=== PATIENT | male | born 1940 | race Caucasian/White ===

== ENCOUNTER 2016-12-17 12:40 | Inpatient (IN) ==
--- NOTE | 2016-12-17 13:20 | Emergency Department Note ---
Disposition Clinical Impression: Weakness, Fall Disposition: Admitted As Inpatient Condition: Fair General Adult HPI - General Chief complaint: ED Extremity Problem,Nontraumatic Stated complaint: N/T BLE Time Seen by Provider: 12/17/16 12:44 Source: patient Limitations: no limitations Nursing Notes Reviewed: Yes Vital Signs Reviewed: Yes - History of Present Illness Pain Scale: 0 - Related Data Home Medications Medication Instructions Recorded Confirmed ALPRAZolam [Xanax 0.5 MG Tablet] 0.5 mg PO QID 05/25/15 05/25/15 Acetaminophen [Tylenol] 325 mg PO Q6HR PRN 05/25/15 05/25/15 Aspirin [Adult Low Dose Aspirin EC] 81 mg PO DAILY 05/25/15 05/25/15 Benzonatate [Tessalon] 100 mg PO TID PRN 05/25/15 05/25/15 Bethanechol [Urecholine] 25 mg PO QID 05/25/15 05/25/15 BuPROPion XL (24 HR) [Wellbutrin 300 mg PO DAILY 05/25/15 05/25/15 Xl] Budesonide/Formoterol 160/4.5 2 puff IH BIDR 05/25/15 05/25/15 [Symbicort 160/4.5] Ciprofloxacin HCl [Ciloxan] 5 ml OP QID 05/25/15 05/25/15 Digoxin [Lanoxin] 0.125 mg PO DAILY 05/25/15 05/25/15 Diltiazem HCl [Diltiazem 24Hr Cd] 120 mg PO DAILY 05/25/15 05/25/15 Diltiazem HCl [Diltiazem 24Hr Cd] 180 mg PO DAILY 05/25/15 05/25/15 DiphenhydraMINE [Benadryl] 25 mg PO Q4HR PRN 05/25/15 05/25/15 Docusate [Colace] 100 mg PO HS 05/25/15 05/25/15 Dorzolamide [Trusopt] 1 drop LEFT EYE TID 05/25/15 05/25/15 Finasteride [Proscar] 5 mg PO DAILY 05/25/15 05/25/15 Fluticasone Propionate Nasal 1 spr NS DAILY 05/25/15 05/25/15 [Flonase] Furosemide [Lasix] 20 mg PO BID 05/25/15 05/25/15 Hydrocortisone [Proctozone-Hc] 1 appl TP AD PRN 05/25/15 05/25/15 Ipratropium/Albuterol Sulfate 2 puff IH Q4H PRN 05/25/15 05/25/15 [Combivent Respimat Inhal [place]] Ketorolac OPTH Soln [Acular] 1 drop LEFT EYE QID 05/25/15 05/25/15 Levothyroxine [Synthroid] 75 mcg PO DAILY 05/25/15 05/25/15 Loratadine [Claritin] 10 mg PO HS 05/25/15 05/25/15 Melatonin [Melatin] 6 mg PO HS 05/25/15 05/25/15 Metoprolol XL (24 HR) Succ [Toprol 50 mg PO DAILY 05/25/15 05/25/15 Xl] Neomycin Becerra/Bacitra/Polymyxin 1 appl OP HS 05/25/15 05/25/15 [[place]-Eixbf-Hbjmemr Eye Oint] OLANZapine [Zyprexa] 20 mg PO DAILY 05/25/15 05/25/15 Polyethylene Glycol 3350 [MiraLAX] 17 gm PO HS 05/25/15 05/25/15 Potassium Chloride 20 meq PO DAILY 05/25/15 05/25/15 Pravastatin Sodium [Pravachol] 40 mg PO HS 05/25/15 05/25/15 Psyllium Husk [Metamucil] 660 gm PO DAILY 05/25/15 05/25/15 Rivaroxaban [Xarelto] 20 mg PO DAILY 05/25/15 05/25/15 Tamsulosin [Flomax] 0.4 mg PO HS 05/25/15 05/25/15 Vit A/Vit C/Vit E/Zinc/Copper 1 each PO BID 05/25/15 05/25/15 [Preservision Areds Tablet] metOLazone [Zaroxolyn] 2.5 mg PO DAILY 05/25/15 05/25/15 Previous Rx's Medication Instructions Recorded Aspirin Enteric Coated [Aspirin EC] 325 mg PO DAILY #21 tablet. 05/24/15 OxyCODONE Immed Rel [Roxicodone 5 5 - 10 mg PO Q6HR PRN #40 tablet 05/24/15 MG] Allergies Allergy/AdvReac Type Severity Reaction Status Date / Time divalproex sodium AdvReac See Verified 05/25/15 16:59 [From Depakote] Comments Imipramine [From Tofranil] AdvReac See Verified 05/25/15 16:59 Comments lamotrigine [From Lamictal] AdvReac See Verified 05/25/15 16:59 Comments [place] AdvReac See Verified 05/25/15 16:59 Comments Nefazodone [From Serzone] AdvReac See Verified 05/25/15 16:59 Comments Past Medical History - Past Medical History Medical history: Reports: hypertension, other Surgical history: Reports: other Psychiatric history: Reports: anxiety, depression - Social History Smoking Status: Never smoker Alcohol use: Reports: none Drug use: Reports: none Physical Exam - General Limitations: no limitations General appearance: alert, in no apparent distress Course Vital Signs Temperature 97.8 F 12/17/16 12:42 Pulse Rate 88 12/17/16 12:42 Respiratory Rate 13 12/17/16 12:42 Blood Pressure 135/84 12/17/16 12:42 O2 Sat by Pulse Oximetry 94 12/17/16 12:42 Temperature 97.8 F 12/17/16 12:42 Pulse Rate 89 12/17/16 15:23 Respiratory Rate 16 12/17/16 15:23 Blood Pressure 112/54 12/17/16 15:23 O2 Sat by Pulse Oximetry 98 12/17/16 15:23 Oxygen Delivery Oxygen Delivery Room Air Medical Decision Making - MDM Narrative Medical decision making narrative: I examined this patient and my medical decision-making was reviewed with the Resident Physician. I agree with the documented findings, disposition and treatment plan as described except to the extent set forth below. Medics patient seen on arrival with EMS and Dr. Cordon, agree with his evaluation and treatment plan, supervised the care of the patient's stay. Patient's from a local ECF, and a fall yesterday. Is now having difficulty walking and some hip and back pain also riskiness had his lumbar spine except. Also x-ray of his elbow as well as left elbow sore. No focal deficits here but he is weak. He states he also gets urinary tract infections we will check a urinalysis on him also. He is in agreement with this plan. No acute focal deficits. Elbow X-Ray 12/17/16 13:20 IMPRESSION: Focal soft tissue swelling/prominence in the dorsal soft tissues likely related to recent trauma and/or hematoma. No definite acute osseous abnormality. Well-corticated 16 mm ossific density in the dorsal soft tissues is likely related to prior trauma. D/ / 12/17/2016 13:44:08 Caitlyn Romo MD / [place] Interpreting Provider: Caitlyn Romo MD 1430 hrs.: We will go ahead and bring him into the hospital as he is unable to ambulate, hospital assess if ordered an MRI for them. Patient's in agreement with the plan. - Lab Data Result diagrams: 12/17/16 13:33 12/17/16 13:33 Lab Results 12/17/16 12/17/16 12/17/16 Range/Units 13:32 13:33 13:33 WBC 10.1 (4.3-11.1) K/mcL RBC 5.60 H (4.19-5.50) M/mcL Hgb 17.7 H (12.9-16.9) g/dL Hct 49.4 (37.5-50.1) % MCV 88.2 (83.0-100.0) fL MCH 31.6 (28.0-33.3) pg MCHC 35.8 H (31.6-35.5) g/dL RDW 12.6 (11.5-14.5) % Plt Count 320 (140-400) K/mcL MPV 9.4 (9.4-12.4) fL Immature Gran % 0.4 (0-4) % Seg Neutrophils % 73.4 % Lymphocytes % 16.3 % Monocytes % 8.2 % Eosinophils % 1.0 % Basophils % 0.7 % Neutrophils # 7.5 (1.6-8.9) K/mcL Lymphocytes # 1.7 (0.6-4.6) K/mcL Monocytes # 0.8 (0.0-1.3) K/mcL Eosinophils # 0.1 (0.0-0.6) K/mcL Basophils # 0.1 (0.0-0.2) K/mcL PT 12.9 H (9.4-12.1) Seconds INR 1.2 Sodium (136-145) mEq/L Potassium (3.5-4.5) mEq/L Chloride (98-109) mEq/L Carbon Dioxide (19-29) mEq/L BUN (8-26) mg/dL Creatinine (0.72-1.25) mg/dL Est GFR ( Amer) (> 60) Est GFR (Non-Af Amer) (> 60) BUN/Creatinine Ratio (6-26) Glucose (70-99) mg/dL Calculated Osmolality (280-300) Lactic Acid (0.5-2.2) mmol/L Calcium (8.6-10.8) mg/dL Total Bilirubin (0.2-1.2) mg/dL AST (5-34) Units/L ALT (0-55) Units/L Alkaline Phosphatase (38-126) Units/L Creatine Kinase (30-200) Units/L Troponin I (0-0.03) ng/mL Serum Total Protein (6.0-8.3) g/dL Albumin (3.5-5.0) g/dL Globulin (2.4-3.5) g/dL Albumin/Globulin Ratio (1.1-2.2) Urine Color Yellow (Yellow) Urine Clarity Clear (Clear) Urine pH 7.0 (5.0-8.0) pH Units Ur Specific [place] 1.010 (1.010-1.025) Urine Protein Negative (Neg-Trace) mg/dL Urine Glucose (UA) Normal (Normal) mg/dL Urine Ketones Negative (Negative) mg/dL Urine Blood Negative (Negative) Urine Nitrite Negative (Negative) Urine Bilirubin Negative (Negative) Urine Urobilinogen Normal (Normal) mg/dL Ur Leukocyte Esterase Negative (Negative) Ur Culture Indicated? NO (NO) 12/17/16 12/17/16 12/17/16 Range/Units 13:33 13:33 13:33 WBC (4.3-11.1) K/mcL RBC (4.19-5.50) M/mcL Hgb (12.9-16.9) g/dL Hct (37.5-50.1) % MCV (83.0-100.0) fL MCH (28.0-33.3) pg MCHC (31.6-35.5) g/dL RDW (11.5-14.5) % Plt Count (140-400) K/mcL MPV (9.4-12.4) fL Immature Gran % (0-4) % Seg Neutrophils % % Lymphocytes % % Monocytes % % Eosinophils % % Basophils % % Neutrophils # (1.6-8.9) K/mcL Lymphocytes # (0.6-4.6) K/mcL Monocytes # (0.0-1.3) K/mcL Eosinophils # (0.0-0.6) K/mcL Basophils # (0.0-0.2) K/mcL PT (9.4-12.1) Seconds INR Sodium 139 (136-145) mEq/L Potassium 3.9 (3.5-4.5) mEq/L Chloride 104 (98-109) mEq/L Carbon Dioxide 24 (19-29) mEq/L BUN 9 (8-26) mg/dL Creatinine 0.77 (0.72-1.25) mg/dL Est GFR ( Amer) > 60 (> 60) Est GFR (Non-Af Amer) > 60 (> 60) BUN/Creatinine Ratio 12 (6-26) Glucose 126 H (70-99) mg/dL Calculated Osmolality 288 (280-300) Lactic Acid 2.4 H (0.5-2.2) mmol/L Calcium 10.4 (8.6-10.8) mg/dL Total Bilirubin 0.6 (0.2-1.2) mg/dL AST 40 H (5-34) Units/L ALT 43 (0-55) Units/L Alkaline Phosphatase 138 H (38-126) Units/L Creatine Kinase 350 H (30-200) Units/L Troponin I 0.00 (0-0.03) ng/mL Serum Total Protein 7.6 (6.0-8.3) g/dL Albumin 4.3 (3.5-5.0) g/dL Globulin 3.3 (2.4-3.5) g/dL Albumin/Globulin Ratio 1.3 (1.1-2.2) Urine Color (Yellow) Urine Clarity (Clear) Urine pH (5.0-8.0) pH Units Ur Specific [place] (1.010-1.025) Urine Protein (Neg-Trace) mg/dL Urine Glucose (UA) (Normal) mg/dL Urine Ketones (Negative) mg/dL Urine Blood (Negative) Urine Nitrite (Negative) Urine Bilirubin (Negative) Urine Urobilinogen (Normal) mg/dL Ur Leukocyte Esterase (Negative) Ur Culture Indicated? (NO)
[2016-12-17 13:44] LABS: Basophils # 0.1 K/mcL (0.0-0.2); Basophils % 0.7 %; Eosinophils # 0.1 K/mcL (0.0-0.6); Hematocrit 49.4 % (37.5-50.1); Hemoglobin 17.7 g/dL (12.9-16.9); Immature Granulocytes % 0.4 % (0-4); Lymphocytes # 1.7 K/mcL (0.6-4.6); Lymphocytes % 16.3 %; Mean Corpuscular HGB Conc 35.8 g/dL (31.6-35.5); Mean Corpuscular Hemoglobin 31.6 pg (28.0-33.3); Mean Corpuscular Volume 88.2 fL (83.0-100.0); Mean Platelet Volume 9.4 fL (9.4-12.4); Monocytes # 0.8 K/mcL (0.0-1.3); Monocytes % 8.2 %; Neutrophils # 7.5 K/mcL (1.6-8.9); Platelet Count 320 K/mcL (140-400); Red Cell Distribution Width 12.6 % (11.5-14.5); Segmented Neutrophils % 73.4 %
[2016-12-17 13:48] LABS: INR 1.2; Prothrombin Time 12.9 Seconds (9.4-12.1)
[2016-12-17 13:56] LABS: Bilirubin,Urine Negative (Negative); Blood,Urine Negative (Negative); Clarity,Urine Clear (Clear); Color,Urine Yellow (Yellow); Glucose,Urine (UA) Normal (Normal); Ketones,Urine Negative (Negative); Leukocyte Esterase,Urine Negative (Negative); Nitrite,Urine Negative (Negative); Protein,Urine Negative (Neg-Trace); Urobilinogen,Urine Normal (Normal)
[2016-12-17 13:58] LABS: Alanine Aminotransferase 43 Units/L (0-55); Albumin 4.3 g/dL (3.5-5.0); Albumin/Globulin Ratio 1.3 (1.1-2.2); Alkaline Phosphatase 138 Units/L (38-126); Aspartate Amino Transferase 40 Units/L (5-34); BUN/Creatinine Ratio 12 (6-26); Bilirubin,Total 0.6 mg/dL (0.2-1.2); Blood Urea Nitrogen 9 mg/dL (8-26); Calcium 10.4 mg/dL (8.6-10.8); Carbon Dioxide 24 mEq/L (19-29); Chloride 104 mEq/L (98-109); Creatine Kinase 350 Units/L (30-200); Globulin 3.3 g/dL (2.4-3.5); Glucose 126 mg/dL (70-99); Osmolality,Calculated 288 (280-300); Potassium 3.9 mEq/L (3.5-4.5); Sodium 139 mEq/L (136-145); Total Protein 7.6 g/dL (6.0-8.3); eGFR For African Americans > 60 (> 60); eGFR For Non-African Americans > 60 (> 60)
--- NOTE | 2016-12-17 14:25 | Emergency Department Note ---
Disposition Clinical Impression: Weakness, Fall Disposition: Admitted As Inpatient Condition: Fair Referrals: NONE,PCP [Primary Care Provider] - Forms: ED Satisfaction Letter Time of Disposition: 15:17 General Adult HPI - General Chief complaint: ED Extremity Problem,Nontraumatic Stated complaint: N/T BLE Time Seen by Provider: 12/17/16 12:44 Source: patient Mode of arrival: EMS Limitations: no limitations Nursing Notes Reviewed: Yes Vital Signs Reviewed: Yes - History of Present Illness HPI Narrative: Patient presents to the ED via EMS with the chief complaint of difficulty with ambulation. Patient coming from nursing facility. States that over the last week he has had a gradual increase in weakness in his bilateral lower extremities. States that he feels like he has led weights and then. Denies any pain. He states he got to the point last night where he was having to use a walker. States his legs got so heavy that he actually ended up falling. He landed on his left elbow. No head injury or loss of consciousness. States that since then has really been unable to walk under his own weight, which is a change for him. Also states that he has been having a shuffling type gait, which is new for him. No headache. No numbness, weakness or paresthesias in his upper extremities. No fever, rash, chest pain, shortness of breath. Pain Scale: 0 - Related Data Home Medications Medication Instructions Recorded Confirmed ALPRAZolam [Xanax 0.5 MG Tablet] 0.5 mg PO QID 05/25/15 05/25/15 Acetaminophen [Tylenol] 325 mg PO Q6HR PRN 05/25/15 05/25/15 Aspirin [Adult Low Dose Aspirin EC] 81 mg PO DAILY 05/25/15 05/25/15 Benzonatate [Tessalon] 100 mg PO TID PRN 05/25/15 05/25/15 Bethanechol [Urecholine] 25 mg PO QID 05/25/15 05/25/15 BuPROPion XL (24 HR) [Wellbutrin 300 mg PO DAILY 05/25/15 05/25/15 Xl] Budesonide/Formoterol 160/4.5 2 puff IH BIDR 05/25/15 05/25/15 [Symbicort 160/4.5] Ciprofloxacin HCl [Ciloxan] 5 ml OP QID 05/25/15 05/25/15 Digoxin [Lanoxin] 0.125 mg PO DAILY 05/25/15 05/25/15 Diltiazem HCl [Diltiazem 24Hr Cd] 120 mg PO DAILY 05/25/15 05/25/15 Diltiazem HCl [Diltiazem 24Hr Cd] 180 mg PO DAILY 05/25/15 05/25/15 DiphenhydraMINE [Benadryl] 25 mg PO Q4HR PRN 05/25/15 05/25/15 Docusate [Colace] 100 mg PO HS 05/25/15 05/25/15 Dorzolamide [Trusopt] 1 drop LEFT EYE TID 05/25/15 05/25/15 Finasteride [Proscar] 5 mg PO DAILY 05/25/15 05/25/15 Fluticasone Propionate Nasal 1 spr NS DAILY 05/25/15 05/25/15 [Flonase] Furosemide [Lasix] 20 mg PO BID 05/25/15 05/25/15 Hydrocortisone [Proctozone-Hc] 1 appl TP AD PRN 05/25/15 05/25/15 Ipratropium/Albuterol Sulfate 2 puff IH Q4H PRN 05/25/15 05/25/15 [Combivent Respimat Inhal [place]] Ketorolac OPTH Soln [Acular] 1 drop LEFT EYE QID 05/25/15 05/25/15 Levothyroxine [Synthroid] 75 mcg PO DAILY 05/25/15 05/25/15 Loratadine [Claritin] 10 mg PO HS 05/25/15 05/25/15 Melatonin [Melatin] 6 mg PO HS 05/25/15 05/25/15 Metoprolol XL (24 HR) Succ [Toprol 50 mg PO DAILY 05/25/15 05/25/15 Xl] Neomycin Becerra/Bacitra/Polymyxin 1 appl OP HS 05/25/15 05/25/15 [Aonzbz-Qdisf-Hdullod Eye Oint] OLANZapine [Zyprexa] 20 mg PO DAILY 05/25/15 05/25/15 Polyethylene Glycol 3350 [MiraLAX] 17 gm PO HS 05/25/15 05/25/15 Potassium Chloride 20 meq PO DAILY 05/25/15 05/25/15 Pravastatin Sodium [Pravachol] 40 mg PO HS 05/25/15 05/25/15 Psyllium Husk [Metamucil] 660 gm PO DAILY 05/25/15 05/25/15 Rivaroxaban [Xarelto] 20 mg PO DAILY 05/25/15 05/25/15 Tamsulosin [Flomax] 0.4 mg PO HS 05/25/15 05/25/15 Vit A/Vit C/Vit E/Zinc/Copper 1 each PO BID 05/25/15 05/25/15 [Preservision Areds Tablet] metOLazone [Zaroxolyn] 2.5 mg PO DAILY 05/25/15 05/25/15 Previous Rx's Medication Instructions Recorded Aspirin Enteric Coated [Aspirin EC] 325 mg PO DAILY #21 tablet. 05/24/15 OxyCODONE Immed Rel [Roxicodone 5 5 - 10 mg PO Q6HR PRN #40 tablet 05/24/15 MG] Allergies Allergy/AdvReac Type Severity Reaction Status Date / Time divalproex sodium AdvReac See Verified 05/25/15 16:59 [From Depakote] Comments Imipramine [From Tofranil] AdvReac See Verified 05/25/15 16:59 Comments lamotrigine [From Lamictal] AdvReac See Verified 05/25/15 16:59 Comments [place] AdvReac See Verified 05/25/15 16:59 Comments Nefazodone [From Serzone] AdvReac See Verified 05/25/15 16:59 Comments All systems ED: reviewed and negative except as stated. Constitutional: Denies: fever Eyes: Denies: vision change Cardiovascular: Denies: chest pain Respiratory: Denies: dyspnea Musculoskeletal: Reports: as per HPI. Denies: back pain Neurological: Denies: headache Endocrine: Denies: fatigue Past Medical History - Past Medical History Attestation: Yes The following information was validated with the patient. Source: patient Medical history: Reports: hypertension, other Surgical history: Reports: other Psychiatric history: Reports: anxiety, depression - Social History Smoking Status: Never smoker Alcohol use: Reports: none Drug use: Reports: none Physical Exam - General Limitations: no limitations General appearance: alert, in no apparent distress - Head Head exam: atraumatic, normocephalic, normal inspection - Eye Eye exam: Present: normal appearance, PERRL, EOMI - ENT ENT exam: normal exam, normal oropharynx, mucous membranes moist - Neck Neck exam: Present: normal inspection, full ROM, trachea midline. Absent: tenderness - Chest Chest inspection: Present: normal inspection, symmetric chest wall rise - Respiratory Respiratory exam: Present: normal lung sounds bilaterally - Cardiovascular Cardiovascular exam: Present: regular rate, normal rhythm, normal heart sounds - Abdominal Exam Abdominal exam: Present: soft, Non-Tender. Absent: tenderness, distention, guarding, rebound, rigidity - Extremities Exam Extremities exam: Present: normal inspection, full ROM, pedal edema - Expanded Lower Extremity Exam Hip/Pelvis exam: Present: pelvis stable Gait: unable to bear weight - Back Exam Back exam: Present: normal inspection, full ROM. Absent: tenderness - Neurological Exam Neurological exam: Present: alert, oriented X3 - Expanded Neurological Exam Patient oriented to: Present: person, place, time Speech: Present: fluid speech Cranial nerves: EOM function (II, III, IV, ): Normal, facial sensation (V): Normal, facial palsy (VII): Normal, spinal accessory function (XI): Normal, tongue deviation (XII): Normal Cerebellar function: Romberg normal Motor strength - LUE: 5/5 Motor strength - RUE: 5/5 Motor strength - LLE: 3/5 Motor strength - RLE: 3/5 Upper motor neuron exam: jo-ann neglect: Absent bilaterally, pronator drift: Absent bilaterally Sensory exam upper extremity: light touch: Normal Sensory exam lower extremity: light touch: Normal DTR: patellar (L): 1+, patellar (R): 1+, Achilles tendon (L): 1+, Achilles tendon (R): 1+ Coma Scale Eye Opening: Spontaneous Coma Scale Motor Response: Obeys Commands Coma Scale Verbal Response: Oriented Coma Scale Total: 15 - Psychiatric Psychiatric exam: Present: normal affect, normal mood - Skin Skin exam: Present: warm, dry, intact, normal color, other (small ulcer on R great toe, no acute infection or necrosis ) Course Course Narrative: patient presenting with 1 w h/o increasing BLE weakness. Also now having inability to walk. Neuro exam normal other than symmetric weakness of the lower ext. no back pain but did fall last night. will CT head and L/S as well as R hip. Will XR elbow which has ecchymosis and pain. Will end up admitting for MRI/MRA head and MRI L/S if workup does not reveal acute etiology. No loss of bowel or bladder function. Vital Signs Temperature 97.8 F 12/17/16 12:42 Pulse Rate 88 12/17/16 12:42 Respiratory Rate 13 12/17/16 12:42 Blood Pressure 135/84 12/17/16 12:42 O2 Sat by Pulse Oximetry 94 12/17/16 12:42 Temperature 97.8 F 12/17/16 12:42 Pulse Rate 96 12/17/16 14:16 Respiratory Rate 18 12/17/16 14:16 Blood Pressure 121/65 12/17/16 14:16 O2 Sat by Pulse Oximetry 98 12/17/16 14:16 Oxygen Delivery Oxygen Delivery Room Air Medical Decision Making - Lab Data Result diagrams: 12/17/16 13:33 12/17/16 13:33 Lab Results 12/17/16 12/17/16 12/17/16 Range/Units 13:32 13:33 13:33 WBC 10.1 (4.3-11.1) K/mcL RBC 5.60 H (4.19-5.50) M/mcL Hgb 17.7 H (12.9-16.9) g/dL Hct 49.4 (37.5-50.1) % MCV 88.2 (83.0-100.0) fL MCH 31.6 (28.0-33.3) pg MCHC 35.8 H (31.6-35.5) g/dL RDW 12.6 (11.5-14.5) % Plt Count 320 (140-400) K/mcL MPV 9.4 (9.4-12.4) fL Immature Gran % 0.4 (0-4) % Seg Neutrophils % 73.4 % Lymphocytes % 16.3 % Monocytes % 8.2 % Eosinophils % 1.0 % Basophils % 0.7 % Neutrophils # 7.5 (1.6-8.9) K/mcL Lymphocytes # 1.7 (0.6-4.6) K/mcL Monocytes # 0.8 (0.0-1.3) K/mcL Eosinophils # 0.1 (0.0-0.6) K/mcL Basophils # 0.1 (0.0-0.2) K/mcL PT 12.9 H (9.4-12.1) Seconds INR 1.2 Sodium (136-145) mEq/L Potassium (3.5-4.5) mEq/L Chloride (98-109) mEq/L Carbon Dioxide (19-29) mEq/L BUN (8-26) mg/dL Creatinine (0.72-1.25) mg/dL Est GFR ( Amer) (> 60) Est GFR (Non-Af Amer) (> 60) BUN/Creatinine Ratio (6-26) Glucose (70-99) mg/dL Calculated Osmolality (280-300) Lactic Acid (0.5-2.2) mmol/L Calcium (8.6-10.8) mg/dL Total Bilirubin (0.2-1.2) mg/dL AST (5-34) Units/L ALT (0-55) Units/L Alkaline Phosphatase (38-126) Units/L Creatine Kinase (30-200) Units/L Troponin I (0-0.03) ng/mL Serum Total Protein (6.0-8.3) g/dL Albumin (3.5-5.0) g/dL Globulin (2.4-3.5) g/dL Albumin/Globulin Ratio (1.1-2.2) Urine Color Yellow (Yellow) Urine Clarity Clear (Clear) Urine pH 7.0 (5.0-8.0) pH Units Ur Specific [place] 1.010 (1.010-1.025) Urine Protein Negative (Neg-Trace) mg/dL Urine Glucose (UA) Normal (Normal) mg/dL Urine Ketones Negative (Negative) mg/dL Urine Blood Negative (Negative) Urine Nitrite Negative (Negative) Urine Bilirubin Negative (Negative) Urine Urobilinogen Normal (Normal) mg/dL Ur Leukocyte Esterase Negative (Negative) Ur Culture Indicated? NO (NO) 12/17/16 12/17/16 12/17/16 Range/Units 13:33 13:33 13:33 WBC (4.3-11.1) K/mcL RBC (4.19-5.50) M/mcL Hgb (12.9-16.9) g/dL Hct (37.5-50.1) % MCV (83.0-100.0) fL MCH (28.0-33.3) pg MCHC (31.6-35.5) g/dL RDW (11.5-14.5) % Plt Count (140-400) K/mcL MPV (9.4-12.4) fL Immature Gran % (0-4) % Seg Neutrophils % % Lymphocytes % % Monocytes % % Eosinophils % % Basophils % % Neutrophils # (1.6-8.9) K/mcL Lymphocytes # (0.6-4.6) K/mcL Monocytes # (0.0-1.3) K/mcL Eosinophils # (0.0-0.6) K/mcL Basophils # (0.0-0.2) K/mcL PT (9.4-12.1) Seconds INR Sodium 139 (136-145) mEq/L Potassium 3.9 (3.5-4.5) mEq/L Chloride 104 (98-109) mEq/L Carbon Dioxide 24 (19-29) mEq/L BUN 9 (8-26) mg/dL Creatinine 0.77 (0.72-1.25) mg/dL Est GFR ( Amer) > 60 (> 60) Est GFR (Non-Af Amer) > 60 (> 60) BUN/Creatinine Ratio 12 (6-26) Glucose 126 H (70-99) mg/dL Calculated Osmolality 288 (280-300) Lactic Acid 2.4 H (0.5-2.2) mmol/L Calcium 10.4 (8.6-10.8) mg/dL Total Bilirubin 0.6 (0.2-1.2) mg/dL AST 40 H (5-34) Units/L ALT 43 (0-55) Units/L Alkaline Phosphatase 138 H (38-126) Units/L Creatine Kinase 350 H (30-200) Units/L Troponin I 0.00 (0-0.03) ng/mL Serum Total Protein 7.6 (6.0-8.3) g/dL Albumin 4.3 (3.5-5.0) g/dL Globulin 3.3 (2.4-3.5) g/dL Albumin/Globulin Ratio 1.3 (1.1-2.2) Urine Color (Yellow) Urine Clarity (Clear) Urine pH (5.0-8.0) pH Units Ur Specific [place] (1.010-1.025) Urine Protein (Neg-Trace) mg/dL Urine Glucose (UA) (Normal) mg/dL Urine Ketones (Negative) mg/dL Urine Blood (Negative) Urine Nitrite (Negative) Urine Bilirubin (Negative) Urine Urobilinogen (Normal) mg/dL Ur Leukocyte Esterase (Negative) Ur Culture Indicated? (NO) SBubba - Jeni Situation: Demographics, MOA Background: Presenting Complaint, Relevant PMH, Meds, & Allergies Assessment: Vital Signs, Course and respsone to treatment, Exam Concerns, Patient/Family Expectation, Pertinant Lab Results, Outstanding Labs Recommendation: Barrier(s) to disposition, Recommendation based on pending studies, treatments, or consults S.B.A.Johann Report Given to: Yoni Ngo Repor Time: 15:17
[2016-12-17] MEDS ORDERED: Naloxone 0.4 MG/ML INJ IVP PRN (16:01)
[2016-12-17] MEDS ORDERED: Ondansetron 4 MG/2 ML VIAL IVP PRN (16:01)
[2016-12-17] MEDS ORDERED: Acetaminophen 325 MG TABLET PO PRN (16:39)
[2016-12-17] MEDS ORDERED: *HR* OxyCODONE Immed Rel 5 MG TABLET PO PRN (16:39)
[2016-12-17] MEDS ORDERED: Furosemide 20 MG TABLET PO SCH (17:00)
[2016-12-17] MEDS ORDERED: 0.9 % Sodium Chloride 1,000 ML IVC SCH (17:15)
--- NOTE | 2016-12-17 17:22 | Internal Med History&Physical ---
<Anni Perea - Last Filed: 12/17/16 17:51> Date of Encounter: 12/17/16 Time of Encounter: 17:13 Assessment and Plan (1) Weakness Current visit: Yes Status: Acute Patient experiencing bilateral lower extremity weakness has been going for past week over the past 24 hours he has not been able to lift his legs he did experience a fall. Upper extremities are intact cranial nerves are intact no facial droop noted. CT of head was negative. CT of spine suggestive of spondylolysis-we will obtain MRI of head and spine will consult orthopedic spine if MRI reveals stenosis Neuro assessments Continue with aspirin and statin Continuous cardiac monitoring (2) DVT prophylaxis Current visit: Yes Status: Acute on xarelto (3) Hypertension Current visit: No Status: Chronic Continue with metoprolol we will hold diuretics for now patient. She will dry. Give gentle fluids overnight and resume in a.m. Qualifiers: Hypertension type: essential hypertension Qualified Code(s): I10 - Essential (primary) hypertension (4) Hypothyroid Current visit: No Status: Chronic Synthroid Qualifiers: Hypothyroidism type: unspecified Qualified Code(s): E03.9 - Hypothyroidism , unspecified (5) A-fib Current visit: No Status: Chronic Presently in atrial fibrillation with controlled rate we will continue with digoxin as well as Cardizem continue Xarelto for anticouagulation Qualifiers: Atrial fibrillation type: unspecified Qualified Code(s): I48.91 - Unspecified atrial fibrillation (6) CAD (coronary artery disease) Current visit: No Status: Chronic Continue with aspirin and statin beta zarina nitrates as needed for chest pain Qualifiers: Coronary Disease-Associated Artery/Lesion type: unspecified vessel or lesion type [place] vs. transplanted heart: unspecified whether [place] or transplanted heart Associated angina: angina presence unspecified Qualified Code(s): I25.10 - Atherosclerotic heart disease of [place] coronary artery without angina pectoris Internal Medicine - H&P: HPI Chief complaint: weakness Admitted From: Emergency Dept Plans for Post Hospital Care: Home History of present illness: Mr. Choi is a 76 year old male past medical history of atrial fibrillation on several toe hypertension BPH hyperthyroid CAD with stents. According to the patient over the last week he has had a gradual increase in weakness in his lower extremities bilaterally. He states yesterday he felt as if he had lead weights on his legs and that his feet were glued to the floor. He has had a shuffling gait and has not been able to lift up his legs. He is been using a walker which she normally does not do. Last night he did have a fall and he fell on his left elbow however he denies any head injuries or loss of consciousness. He denies any other numbness weakness or paresthesia in his upper extremities. No loss of bowel or bladder Denies any chest pain shortness of breath abdominal pain nausea vomiting or diarrhea. He presented to the ER with the above complaints. Lab work was obtained lactate was 2.4 rest of lab work unremarkable. CT of head was negative for any intracranial abnormalities. CT of lumbar spine with osteopenia with multilevel lumbar spondylosis and facet arthropathy suggestion of significant disc disease at L3- 4 and L4-5 he has been admitted for further workup and evaluation. Presently patient denies any pain or discomfort. 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 Denies any lower back pain I reviewed this case with Dr. Garner who agrees with plan. Past Med Surg Social Fam HX - Past Medical History Medical history: hypertension, other Psychiatric history: anxiety, depression - Past Surgical History Surgical History: other - Social History Smoking Status: Never smoker Smokeless Tobacco Status: No Alcohol use: none Drug use: none - Family History Mother Living Status: Cause of : Heart disease Father Living Status: Hx Family Cardiac Disorders: Yes (Heart disease) Internal Medicine - H&P: Meds Aspirin Enteric Coated [Aspirin EC] 325 mg PO DAILY #21 tablet. 05/24/15 [Rx] OxyCODONE Immed Rel [Roxicodone 5 MG] 5 - 10 mg PO Q6HR PRN #40 tablet 05/24/15 [Rx] ALPRAZolam [Xanax 0.5 MG Tablet] 0.5 mg PO QID 05/25/15 [History] Acetaminophen [Tylenol] 325 mg PO Q4H PRN 05/25/15 [History] Benzonatate [Tessalon] 100 mg PO TID PRN 05/25/15 [History] Bethanechol [Urecholine] 25 mg PO QID 05/25/15 [History] BuPROPion XL (24 HR) [Wellbutrin Xl] 300 mg PO DAILY 05/25/15 [History] Budesonide/Formoterol 160/4.5 [Symbicort 160/4.5] 2 puff IH BIDR 05/25/15 [ History] Digoxin [Lanoxin] 0.125 mg PO DAILY 05/25/15 [History] DiphenhydraMINE [Benadryl] 12.5 mg PO Q8H PRN 05/25/15 [History] Finasteride [Proscar] 5 mg PO DAILY 05/25/15 [History] Fluticasone Propionate Nasal [Flonase] 50 mcg NS DAILY 05/25/15 [History] Furosemide [Lasix] 20 mg PO BID 05/25/15 [History] Hydrocortisone [Proctozone-Hc] 1 appl TP AD PRN 05/25/15 [History] Levothyroxine [Synthroid] 75 mcg PO DAILY 05/25/15 [History] Loratadine [Claritin] 10 mg PO HS 05/25/15 [History] Melatonin [Melatin] 2 mg PO HS 05/25/15 [History] Metoprolol XL (24 HR) Succ [Toprol Xl] 50 mg PO DAILY 05/25/15 [History] OLANZapine [Zyprexa] 20 mg PO HS 05/25/15 [History] Polyethylene Glycol 3350 [MiraLAX] 17 gm PO HS 05/25/15 [History] Potassium Chloride 40 meq PO TID 05/25/15 [History] Pravastatin Sodium [Pravachol] 40 mg PO HS 05/25/15 [History] Psyllium Husk [Metamucil] 660 gm PO DAILY 05/25/15 [History] Rivaroxaban [Xarelto] 20 mg PO DAILY 05/25/15 [History] Tamsulosin [Flomax] 0.4 mg PO HS 05/25/15 [History] Vit A/Vit C/Vit E/Zinc/Copper [Preservision Areds Tablet] 1 tab PO BID 05/25/15 [History] Chlorthalidone 12.5 mg PO DAILY 12/17/16 [History] Diltiazem CD (24hr) [Cardizem CD] 300 mg PO DAILY 12/17/16 [History] Guaifenesin [Mucinex] 600 mg PO Q12H 12/17/16 [History] Ipratropium/Albuterol Neb [Duoneb] 3 ml IH Q4HR 12/17/16 [History] Linaclotide [Linzess] 145 mcg PO DAILY 12/17/16 [History] 3 Allergy/AdvReac Type Severity Reaction Status Date / Time divalproex sodium AdvReac See Verified 05/25/15 16:59 [From Depakote] Comments Imipramine [From Tofranil] AdvReac See Verified 05/25/15 16:59 Comments lamotrigine [From Lamictal] AdvReac See Verified 05/25/15 16:59 Comments [place] AdvReac See Verified 05/25/15 16:59 Comments Nefazodone [From Serzone] AdvReac See Verified 05/25/15 16:59 Comments All Systems PM: A 10-system review of systems was performed and is negative for pertinent findings except as documented above in the HPI. - Constitutional Constitutional: falls, weakness, no chills, no fever(s), no night sweats - EENT Eyes: no change in vision, no discharge, no pain, no photophobia Nose, mouth and throat: no dysphagia, no nasal discharge, no neck pain, no sore throat - Cardiovascular Cardiovascular ROS IM: no chest pain, no diaphoresis, no dyspnea, no lightheadedness, no palpitations, no syncope - Respiratory Respiratory: no cough, no dyspnea, no wheezing, no excessive phlegm production - Gastrointestinal Gastrointestinal: no abdominal pain, no diarrhea, no hematemesis, no hematochezia, no melena, no nausea, no vomiting - Musculoskeletal Musculoskeletal ROS IM: no numbness, no tingling - Neurological Neurological ROS: abnormal gait, numbness, weakness, no confusion, no convulsions, no focal weakness, no tingling, no tremor(s) - Hematologic/Lymphatic Hematologic/Lymphatic: no easy bruising - Constitutional Vitals: Temp Pulse Resp BP Pulse Ox 97.9 F 82 16 126/77 91 12/17/16 16:25 12/17/16 16:25 12/17/16 16:25 12/17/16 16:25 12/17/16 16:25 General appearance: Present: A&O X 3, answers questions appropriately - Head Head exam: Present: atraumatic, normocephalic - Eye Eye exam: Present: PERRL, conjuntiva pink, sclera anicteric Pupils: Present: PERRL - Neck Neck exam general surgery: Present: supple, trachea midline. Absent: lymphadenopathy - Respiratory Respiratory exam: Present: CTAB. Absent: accessory muscle use, rales, rhonchi, wheezes - Cardiovascular Cardiovascular exam: Present: irregular rhythm, +S1, +S2. Absent: diastolic murmur, gallop, rubs, systolic murmur - GI/Abdominal GI/Abdominal exam: Present: normal bowel sounds, soft, no peritoneal signs. Absent: distended, tenderness - Extremities Exam Extremities exam: Present: warm, radial pulses palpable and symmetrical. Absent : calf tenderness, cyanotic, pedal edema - Neurological Exam Neurological exam: Present: CN II-XII intact, oriented X3, no focal deficits. Absent: pronater drift, facial droop, speech deficit - Expanded Neurological Exam Neuro motor strength exam: LUE: 5, RUE: 5, LLE: 0, RLE: 0 - Skin Skin exam: Present: dry, intact Internal Med - H&P Results - Labs CBC & Chem 7: 12/17/16 13:33 12/17/16 13:33 - EKG Data EKG comments: 12/17/16 17:28 Atrial fibrillation - Diagnostic Studies Other Images Additional comments: Head CT 12/17/16 13:19 IMPRESSION: No acute intracranial abnormality. D/ / Javier Amin MD / Javier Amin MD Interpreting Provider: Javier Amin MD Elbow X-Ray 12/17/16 13:20 IMPRESSION: Focal soft tissue swelling/prominence in the dorsal soft tissues likely related to recent trauma and/or hematoma. No definite acute osseous abnormality. Well-corticated 16 mm ossific density in the dorsal soft tissues is likely related to prior trauma. D/ / 12/17/2016 13:44:08 Caitlyn Romo MD / [place] Interpreting Provider: Caitlyn Romo MD Hip CT 12/17/16 13:20 IMPRESSION: 1. No acute osseous abnormality. 2. Mild osteoarthritis of the bilateral hips. 3. Moderate to severe spondylosis and severe facet arthrosis of the partially visualized lower lumbar spine resulting in severe central canal stenosis at the L3-L4 levels and moderate to severe neural foraminal stenosis as above. D/ / Jony Saba MD / Jony Saba MD Interpreting Provider: Jony Saba MD Lumbar Spine CT 12/17/16 13:20 IMPRESSION: No acute osseous abnormality of the lumbar spine. Osteopenia with multilevel lumbar spondylosis and facet arthropathy. Suggestion of significant disc disease at L3-4 and L4-5. If clinically indicated, consider MRI or post myelogram CT for more complete evaluation. D/ / 12/17/2016 14:31:04 Javier Amin MD / [place] Interpreting Provider: Javier Amin MD <Artem Garner P - Last Filed: 12/17/16 18:51> Date of Encounter: 12/17/16 Internal Medicine - H&P: HPI History of present illness: Mr. Choi is a 76 year old male All Systems PM: A 10-system review of systems was performed and is negative for pertinent findings except as documented above in the HPI. - Constitutional Vitals: Temp Pulse Resp BP Pulse Ox 97.9 F 82 16 126/77 91 12/17/16 16:25 12/17/16 16:25 12/17/16 16:25 12/17/16 16:25 12/17/16 16:25 Internal Med - H&P Results - Labs CBC & Chem 7: 12/17/16 13:33 12/17/16 13:33 - Attending Attestation I examined this patient and my medical decision-making was reviewed with the Resident Physician. I agree with the documented findings, disposition and treatment plan as described except to the extent set forth below. 76/male. Admitted with progressively worsening weakness. Presently undergoing workup. Awaiting for MRI. If MRI is positive for any fractures/compression We will get neurosurgery/spine surgery involved.
[2016-12-17] MEDS: ALPRAZolam 0.5 MG TABLET PO SCH ×2 (18:35→21:03)
[2016-12-17] MEDS: Ipratropium/Albuterol Neb 3 ML IH SCH ×2 (20:39→23:47)
[2016-12-17] MEDS: Budesonide/Formoterol 160/4.5 MDI IH SCH (20:40)
[2016-12-17] MEDS: Loratadine 10 MG TABLET PO SCH (21:03)
[2016-12-17] MEDS: OLANZapine 10 MG TAB.RAPDIS PO SCH (21:03)
[2016-12-17] MEDS: Melatonin 3 MG TABLET PO SCH (21:03)
[2016-12-18] MEDS: Ipratropium/Albuterol Neb 3 ML IH SCH ×6 (04:32→23:10)
[2016-12-18 05:50] LABS: Basophils # 0.1 K/mcL (0.0-0.2); Basophils % 0.7 %; Eosinophils # 0.2 K/mcL (0.0-0.6); Eosinophils % 1.8 %; Hematocrit 44.2 % (37.5-50.1); Immature Granulocytes % 0.4 % (0-4); Lymphocytes # 2.4 K/mcL (0.6-4.6); Lymphocytes % 29.2 %; Mean Corpuscular HGB Conc 35.5 g/dL (31.6-35.5); Mean Corpuscular Hemoglobin 31.8 pg (28.0-33.3); Mean Corpuscular Volume 89.5 fL (83.0-100.0); Mean Platelet Volume 9.5 fL (9.4-12.4); Monocytes # 0.9 K/mcL (0.0-1.3); Monocytes % 11.2 %; Neutrophils # 4.7 K/mcL (1.6-8.9); Platelet Count 299 K/mcL (140-400); Red Blood Count 4.94 M/mcL (4.19-5.50); Red Cell Distribution Width 12.8 % (11.5-14.5); Segmented Neutrophils % 56.7 %
[2016-12-18 05:55] LABS: BUN/Creatinine Ratio 11 (6-26); Blood Urea Nitrogen 8 mg/dL (8-26); Calcium 9.8 mg/dL (8.6-10.8); Carbon Dioxide 27 mEq/L (19-29); Chloride 106 mEq/L (98-109); Glucose 111 mg/dL (70-99); Osmolality,Calculated 291 (280-300); Potassium 3.6 mEq/L (3.5-4.5); Sodium 141 mEq/L (136-145); eGFR For African Americans > 60 (> 60); eGFR For Non-African Americans > 60 (> 60)
[2016-12-18 06:12] LABS: Hemoglobin 15.7 g/dL (12.9-16.9)
[2016-12-18] MEDS: Diltiazem CD (24hr) 300 MG CAPSULE PO SCH ×2 (07:57→09:04)
[2016-12-18] MEDS: (Linaclotide [Linzess] 145 MCG) PO SCH (07:58)
[2016-12-18] MEDS: Metoprolol XL (24 HR) Succ 50 MG TAB.ER.24H PO SCH ×2 (07:58→09:04)
[2016-12-18] MEDS: Budesonide/Formoterol 160/4.5 MDI IH SCH ×2 (08:38→20:11)
[2016-12-18] MEDS: Psyllium 1 PACKET POWD.PACK PO SCH (09:04)
[2016-12-18] MEDS: BuPROPion XL (24 HR) 150 MG TABLET PO SCH (09:04)
[2016-12-18] MEDS: *HR* Rivaroxaban 10 MG TABLET PO SCH (09:04)
[2016-12-18] MEDS: ALPRAZolam 0.5 MG TABLET PO SCH ×4 (09:05→22:09)
[2016-12-18] MEDS: Finasteride 5 MG TABLET PO SCH (09:05)
[2016-12-18] MEDS: *HR* Digoxin 0.125 MG TABLET PO SCH (09:05)
[2016-12-18] MEDS: Fluticasone Propionate Nasal 50 MCG/SPRAY BOTTLE NS SCH (09:05)
[2016-12-18] MEDS: Aspirin Enteric Coated 325 MG Tablet PO SCH (09:05)
[2016-12-18] MEDS: MethylPREDNISolone 40 MG/ML VIAL IVP SCH ×2 (10:02→17:13)
[2016-12-18 10:52] LABS: C-Reactive Protein 11 mg/L (Less than 5); Creatine Kinase 165 Units/L (30-200)
--- NOTE | 2016-12-18 14:14 | Internal Med Progress Note ---
Date of Encounter: 12/18/16 Time of Encounter: 09:00 - Assessment and plan (1) Facet arthritis, degenerative, lumbar spine Current Visit: Yes Status: Acute Assessment and plan: Pt with foraminal stenosis in lumbar area. Difficulty ambulating. Trial of Solumedrol ordered. PT/OT. (2) Leg weakness, bilateral Current Visit: Yes Status: Acute Assessment and plan: Pt with difficulty ambulating due to bilateral leg weakness. If persists after steroids will ask neuro eval. Has DTRs on L, minimal on R - need to keep GBS in mind as well. No respiratory difficulty at this time. At this time pt is unsafe to leave due to gait weakness. Needs PT/OT and SW to see. (3) A-fib Current Visit: No Status: Chronic Assessment and plan: Continue home meds. Qualifiers: Atrial fibrillation type: chronic Qualified Code(s): I48.2 - Chronic atrial fibrillation (4) Hypothyroid Current Visit: No Status: Chronic Assessment and plan: Continue home meds. Qualifiers: Hypothyroidism type: acquired Qualified Code(s): E03.9 - Hypothyroidism, unspecified (5) Hypertension Current Visit: No Status: Chronic Assessment and plan: Controlled. continue home meds. Qualifiers: Hypertension type: essential hypertension Qualified Code(s): I10 - Essential (primary) hypertension (6) CAD (coronary artery disease) Current Visit: No Status: Chronic Assessment and plan: Continue home meds. Qualifiers: Coronary Disease-Associated Artery/Lesion type: [place] artery [place] vs. transplanted heart: [place] heart Associated angina: without angina Qualified Code(s): I25.10 - Atherosclerotic heart disease of [place] coronary artery without angina pectoris - Subjective Interval history: Mr Choi is currently in observation for bilateral lower extremity weakness with inability to ambulate. Mr Choi is continuing to have issues with ambulation and leg weakness. He had difficulty getting to bathroom. He has some back pain but not significantly worse. He is concerned about his leg strength and is worried about what is causing it. No bowel or bladder loss. No fever or chills. Actually thinks he may be constipated. Unsure whether he had flu shot this year yet. - Constitutional Vitals: Temp Pulse Resp BP Pulse Ox 97.4 F L 92 16 118/77 95 12/18/16 11:48 12/18/16 11:48 12/18/16 11:48 12/18/16 11:48 12/18/16 11:48 General appearance: Present: cooperative, A&O X 3, answers questions appropriately - Head Head exam: Present: normocephalic - Eye Eye exam: Present: EOMI, conjuntiva pink - ENT ENT exam: Present: mucous membranes moist - Respiratory Respiratory exam: Present: decreased breath sounds, CTAB. Absent: rales, rhonchi, wheezes - Cardiovascular Cardiovascular exam: Present: distant heart sounds, RRR. Absent: systolic murmur, tachycardia - GI/Abdominal GI/Abdominal exam: Present: normal bowel sounds, soft. Absent: tenderness - Extremities Exam Extremities exam: Present: warm. Absent: calf tenderness, pedal edema, tenderness - Back Exam Back exam: Present: normal inspection. Absent: CVA tenderness (L), CVA tenderness (R), paraspinal tenderness, vertebral tenderness - Neurological Exam Neurological exam: Present: alert, oriented X3 Additional comments: Bilateral lower extremities with decreased strength - 4/5 bilaterally. Did not ambulate him at this time. Internal Medicine: Result - Labs CBC & Chem 7: 12/18/16 05:17 12/18/16 05:17 Labs: Short CBC 12/18/16 Range/Units 05:17 WBC 8.2 (4.3-11.1) K/mcL Hgb 15.7 D (12.9-16.9) g/dL Hct 44.2 (37.5-50.1) % Plt Count 299 (140-400) K/mcL Neutrophils # 4.7 (1.6-8.9) K/mcL BMP 12/18/16 05:17 Sodium 141 Potassium 3.6 Chloride 106 Carbon Dioxide 27 BUN 8 Creatinine 0.76 Glucose 111 H Calcium 9.8 - ABG Interpretation ABG results: PT/INR, D-dimer PT 12.9 Seconds (9.4-12.1) H 12/17/16 13:33 Consult Discharge Plan - Plan Referrals: NONE,PCP [Primary Care Provider] -
[2016-12-18] MEDS: OLANZapine 10 MG TAB.RAPDIS PO SCH (22:09)
[2016-12-18] MEDS: Loratadine 10 MG TABLET PO SCH (22:09)
[2016-12-18] MEDS: Melatonin 3 MG TABLET PO SCH (22:10)
[2016-12-19] MEDS: MethylPREDNISolone 40 MG/ML VIAL IVP SCH ×3 (01:02→18:16)
[2016-12-19] MEDS: Ipratropium/Albuterol Neb 3 ML IH SCH ×5 (04:09→20:06)
[2016-12-19] MEDS: Budesonide/Formoterol 160/4.5 MDI IH SCH ×2 (07:25→20:06)
[2016-12-19] MEDS ORDERED: MOM Conc 10 ML UD.LIQ PO PRN (08:48)
--- NOTE | 2016-12-19 08:50 | Internal Med Progress Note ---
Date of Encounter: 12/19/16 Time of Encounter: 08:49 - Assessment and plan (1) Facet arthritis, degenerative, lumbar spine Current Visit: Yes Status: Acute Assessment and plan: On IV Solumedrol. Unsure if he has had any improvement. Anticipate d/c tomorrow. Appreciate neuro input. (2) Leg weakness, bilateral Current Visit: Yes Status: Acute Assessment and plan: Pt with difficulty ambulating due to bilateral leg weakness. Anticipate C at discharge. Continue IV steroids for now. (3) A-fib Current Visit: No Status: Chronic Assessment and plan: Continue home meds. Qualifiers: Atrial fibrillation type: chronic Qualified Code(s): I48.2 - Chronic atrial fibrillation (4) Hypothyroid Current Visit: No Status: Chronic Assessment and plan: Continue home meds. Qualifiers: Hypothyroidism type: acquired Qualified Code(s): E03.9 - Hypothyroidism, unspecified (5) Hypertension Current Visit: No Status: Chronic Assessment and plan: Controlled. continue home meds. Qualifiers: Hypertension type: essential hypertension Qualified Code(s): I10 - Essential (primary) hypertension (6) CAD (coronary artery disease) Current Visit: No Status: Chronic Assessment and plan: Continue home meds. Qualifiers: Coronary Disease-Associated Artery/Lesion type: [place] artery [place] vs. transplanted heart: [place] heart Associated angina: without angina Qualified Code(s): I25.10 - Atherosclerotic heart disease of [place] coronary artery without angina pectoris - Subjective Interval history: Mr Choi is currently in observation for bilateral lower extremity weakness with inability to ambulate. Mr Choi continues to have issues with ambulation. No fever or chills. No cough. No GI issues. Appreciate neurology input. Currently on IV steroids. - Constitutional Vitals: Temp Pulse Resp BP Pulse Ox 97.8 F 95 17 137/90 90 12/19/16 06:42 12/19/16 06:42 12/19/16 06:42 12/19/16 06:42 12/19/16 06:42 General appearance: Present: cooperative, A&O X 3, answers questions appropriately - Head Head exam: Present: normocephalic - Eye Eye exam: Present: conjuntiva pink - ENT ENT exam: Present: mucous membranes moist - Respiratory Respiratory exam: Present: CTAB. Absent: rhonchi, wheezes - Cardiovascular Cardiovascular exam: Present: irregular rhythm. Absent: tachycardia - GI/Abdominal GI/Abdominal exam: Present: soft. Absent: tenderness - Extremities Exam Extremities exam: Present: warm. Absent: tenderness - Neurological Exam Neurological exam: Present: alert, oriented X3 Internal Medicine: Result - Labs CBC & Chem 7: 12/18/16 05:17 12/18/16 05:17 - ABG Interpretation ABG results: PT/INR, D-dimer PT 12.9 Seconds (9.4-12.1) H 12/17/16 13:33 Consult Discharge Plan - Plan Referrals: NONE,PCP [Primary Care Provider] -
[2016-12-19] MEDS: ALPRAZolam 0.5 MG TABLET PO SCH ×4 (08:52→21:07)
[2016-12-19] MEDS: *HR* Rivaroxaban 10 MG TABLET PO SCH (08:52)
[2016-12-19] MEDS: Diltiazem CD (24hr) 300 MG CAPSULE PO SCH (08:52)
[2016-12-19] MEDS: Finasteride 5 MG TABLET PO SCH (08:52)
[2016-12-19] MEDS: Aspirin Enteric Coated 325 MG Tablet PO SCH (08:52)
[2016-12-19] MEDS: Psyllium 1 PACKET POWD.PACK PO SCH (08:52)
[2016-12-19] MEDS: BuPROPion XL (24 HR) 150 MG TABLET PO SCH (08:52)
[2016-12-19] MEDS: Metoprolol XL (24 HR) Succ 50 MG TAB.ER.24H PO SCH (08:52)
[2016-12-19] MEDS: *HR* Digoxin 0.125 MG TABLET PO SCH (08:52)
[2016-12-19] MEDS: Fluticasone Propionate Nasal 50 MCG/SPRAY BOTTLE NS SCH (09:08)
[2016-12-19] MEDS: (Linaclotide [Linzess] 145 MCG) PO SCH (12:55)
--- NOTE | 2016-12-19 14:04 | Neurology - Consult Note ---
Date of Encounter: 12/19/16 Time of Encounter: 08:20 Assessment and Plan (1) Leg weakness, bilateral Current Visit: Yes Status: Acute This patient seems to be experiencing significant weakness of his both lower extremities seems to be a gradual decline in his symptoms has been going on for quite some time at least for the past 6 months. He did have a significant degenerative changes on his lumbar spine first we need to exclude any central stenosis I would recommend getting an MRI of the lumbar spine. Other possibility of his symptoms could be related to peripheral radiculopathy or neuropathy like in seen in GBS (Guillain[place] syndrome) He did have some reflexes present and of course does not seem to be consistent with perhaps one other possibility that it could be CIDP (Chronic inflammatory demyelinating polyneuropathy) Before that we do need to exclude any central stenosis. At the same time I would like to give him a trial of steroids and to see if it helps he would definitely need physical therapy and rehabilitation. Also check for other underlying metabolic and infectious etiologies that may be causing or contributing to his symptoms (2) Facet arthritis, degenerative, lumbar spine Current Visit: Yes Status: Acute History of Present Illness HPI: Mr. Choi is a 76 year old male with past medical history of atrial fibrillation , hypertension BPH hyperthyroid CAD with stents. admitted with gradual increase in weakness in his lower extremities bilaterally. He states that he felt as if he had lead weights on his legs and that his feet were glued to the floor. He has had a shuffling gait and has not been able to lift up his legs. He is been using a walker for the past 6 month s or so, Last night he did have a fall and he fell on his left elbow however he denies any head injuries or loss of consciousness. He denies any other numbness weakness or paresthesia in his upper extremities. No loss of bowel or bladder in ER his CT of head was negative for any intracranial abnormalities. CT of lumbar spine with osteopenia with multilevel lumbar spondylosis and facet arthropathy suggestion of significant disc disease at L3-4 and L4-5 he has been admitted for further workup and evaluation. patient denies any pain or discomfort, continued to be weak in lower extremeties. Past Med Surg Social Fam HX - Past Medical History Medical history: hypertension, other Psychiatric history: anxiety, depression - Past Surgical History Surgical History: other - Social History Smoking Status: Never smoker Smokeless Tobacco Status: No Alcohol use: none Drug use: none - Family History Mother Living Status: Cause of : Heart disease Father Living Status: Hx Family Cardiac Disorders: Yes (Heart disease) Medications and Allergies Aspirin Enteric Coated [Aspirin EC] 325 mg PO DAILY #21 tablet. 05/24/15 [Rx] OxyCODONE Immed Rel [Roxicodone 5 MG] 5 - 10 mg PO Q6HR PRN #40 tablet 05/24/15 [Rx] ALPRAZolam [Xanax 0.5 MG Tablet] 0.5 mg PO QID 05/25/15 [History] Acetaminophen [Tylenol] 325 mg PO Q4H PRN 05/25/15 [History] Benzonatate [Tessalon] 100 mg PO TID PRN 05/25/15 [History] Bethanechol [Urecholine] 25 mg PO QID 05/25/15 [History] BuPROPion XL (24 HR) [Wellbutrin Xl] 300 mg PO DAILY 05/25/15 [History] Budesonide/Formoterol 160/4.5 [Symbicort 160/4.5] 2 puff IH BIDR 05/25/15 [ History] Digoxin [Lanoxin] 0.125 mg PO DAILY 05/25/15 [History] DiphenhydraMINE [Benadryl] 12.5 mg PO Q8H PRN 05/25/15 [History] Finasteride [Proscar] 5 mg PO DAILY 05/25/15 [History] Fluticasone Propionate Nasal [Flonase] 50 mcg NS DAILY 05/25/15 [History] Furosemide [Lasix] 20 mg PO BID 05/25/15 [History] Hydrocortisone [Proctozone-Hc] 1 appl TP AD PRN 05/25/15 [History] Levothyroxine [Synthroid] 75 mcg PO DAILY 05/25/15 [History] Loratadine [Claritin] 10 mg PO HS 05/25/15 [History] Melatonin [Melatin] 2 mg PO HS 05/25/15 [History] Metoprolol XL (24 HR) Succ [Toprol Xl] 50 mg PO DAILY 05/25/15 [History] OLANZapine [Zyprexa] 20 mg PO HS 05/25/15 [History] Polyethylene Glycol 3350 [MiraLAX] 17 gm PO HS 05/25/15 [History] Potassium Chloride 40 meq PO TID 05/25/15 [History] Pravastatin Sodium [Pravachol] 40 mg PO HS 05/25/15 [History] Psyllium Husk [Metamucil] 660 gm PO DAILY 05/25/15 [History] Rivaroxaban [Xarelto] 20 mg PO DAILY 05/25/15 [History] Tamsulosin [Flomax] 0.4 mg PO HS 05/25/15 [History] Vit A/Vit C/Vit E/Zinc/Copper [Preservision Areds Tablet] 1 tab PO BID 05/25/15 [History] Chlorthalidone 12.5 mg PO DAILY 12/17/16 [History] Diltiazem CD (24hr) [Cardizem CD] 300 mg PO DAILY 12/17/16 [History] Guaifenesin [Mucinex] 600 mg PO Q12H 12/17/16 [History] Ipratropium/Albuterol Neb [Duoneb] 3 ml IH Q4HR 12/17/16 [History] Linaclotide [Linzess] 145 mcg PO DAILY 12/17/16 [History] 3 Allergy/AdvReac Type Severity Reaction Status Date / Time divalproex sodium AdvReac See Verified 05/25/15 16:59 [From Depakote] Comments Imipramine [From Tofranil] AdvReac See Verified 05/25/15 16:59 Comments lamotrigine [From Lamictal] AdvReac See Verified 05/25/15 16:59 Comments [place] AdvReac See Verified 05/25/15 16:59 Comments Nefazodone [From Serzone] AdvReac See Verified 05/25/15 16:59 Comments All Systems: A 10-system review of systems was performed and is negative for pertinent findings except as documented above in the HPI. co/o weakness in both legs for several months gradually getting worse not able to walk now Physical Examination - Vital Signs Vital Signs: Initial Vital Signs Temp Pulse Resp BP Pulse Ox 97.8 F 88 13 135/84 94 12/17/16 12:42 12/17/16 12:42 12/17/16 12:42 12/17/16 12:42 12/17/16 12:42 - Constitutional General appearance: comfortable - Neurologic Sensorimotor examination: intact Motor examination - right side: 2/5: hip flexors, tibialis Anterior, quadriceps , toe extension (EHL), plantarflexion, 5/5: deltoids, biceps, triceps, wrist flexion, wrist extension, battery plate assembler Motor examination - left side: 2/5: tibialis Anterior, toe extension (EHL), plantarflexion, 3/5: hip flexors, quadriceps, 5/5: deltoids, biceps, triceps, wrist flexion, wrist extension, battery plate assembler Detailed sensory examination: intact, other (decrease sensation on boht lower ext) Reflexes: Biceps: 1+, Triceps: 1+, Brachioradialis: 1+, Patella: 0, Achilles: 1+ Mental Status Examination: awake, alert, oriented to person, oriented to place, oriented to time, follows commands appropriately, answers questions appropriately, no agnosia, no aphasia, no aproxia Cranial nerve examination: PERRL, EOMI, visual trevizo intact, corneal reflexes brisk symmetrically, sensory to face intact, mastication intact, no facial asymmetry is present, no dysarthria, hearing is intact symmetrically, soft palate elevates bilaterally upon phonation, gag reflex intact, flexes SCM and trapezius muscles symmetrically with full power, tongue protrudes midline, no atrophy or facial fasiculations present Cerebellar examination: no dysmetria Results - Laboratory Findings CBC and BMP: 12/18/16 05:17 12/18/16 05:17 Abnormal lab findings: Abnormal lab results ESR 13 mm/hr (0-10) H 12/18/16 10:10 PT 12.9 Seconds (9.4-12.1) H 12/17/16 13:33 Glucose 111 mg/dL (70-99) H 12/18/16 05:17 POC Glucose 108 (58-89) H 12/17/16 16:24 Lactic Acid 2.4 mmol/L (0.5-2.2) H 12/17/16 13:33 AST 40 Units/L (5-34) H 12/17/16 13:33 Alkaline Phosphatase 138 Units/L (38-126) H 12/17/16 13:33 C-Reactive Protein 11 mg/L (Less than 5) H 12/18/16 10:10 - Diagnostic Findings Additional findings: CT lumbar : No acute osseous abnormality of the lumbar spine. Osteopenia with multilevel lumbar spondylosis and facet arthropathy. Suggestion of significant disc disease at L3-4 and L4-5. CT head negative Consult Discharge Plan - Plan Referrals: NONE,PCP [Primary Care Provider] -
[2016-12-19 16:03] LABS: Folate 14.7 ng/mL (7.0-31.4)
--- NOTE | 2016-12-19 17:00 | Electrocardiograph Report ---
[address] [address] Test Date: 2016-12-17 Pat Name: Rodney Choi Department: 102 Room: 3B Gender: M Change Manager: : 1940 Requested By: Terrance Cordon Order Number: [id number] Reading MD: Symone Clemens Measurements Intervals [place] Rate: 92 P: MA: 0 QRS: 6 QRSD: 114 T: 97 QT: 348 QTc: 398 Interpretive Statements ATRIAL FIBRILLATION INTRAVENTRICULAR CONDUCTION DELAY NONSPECIFIC ST & T-WAVE ABNORMALITY Electronically Signed On 12-19-2016 16:58:55 EDT by Symone Clemens
[2016-12-19] MEDS: OLANZapine 10 MG TAB.RAPDIS PO SCH (21:07)
[2016-12-19] MEDS: Melatonin 3 MG TABLET PO SCH (21:07)
[2016-12-19] MEDS: Loratadine 10 MG TABLET PO SCH (21:07)
[2016-12-20] MEDS: Ipratropium/Albuterol Neb 3 ML IH SCH ×6 (00:28→20:17)
[2016-12-20] MEDS: MethylPREDNISolone 40 MG/ML VIAL IVP SCH ×3 (02:11→21:35)
[2016-12-20 04:38] LABS: Hemoglobin 14.8 g/dL (12.9-16.9); Mean Corpuscular HGB Conc 35.2 g/dL (31.6-35.5); Mean Corpuscular Hemoglobin 31.5 pg (28.0-33.3); Mean Corpuscular Volume 89.4 fL (83.0-100.0); Mean Platelet Volume 9.6 fL (9.4-12.4); Platelet Count 315 K/mcL (140-400); Red Cell Distribution Width 12.9 % (11.5-14.5)
[2016-12-20 05:15] LABS: BUN/Creatinine Ratio 17 (6-26); Blood Urea Nitrogen 14 mg/dL (8-26); Calcium 10.3 mg/dL (8.6-10.8); Carbon Dioxide 26 mEq/L (19-29); Chloride 105 mEq/L (98-109); Glucose 220 mg/dL (70-99); Magnesium 2.2 mg/dL (1.6-2.6); Osmolality,Calculated 303 (280-300); Potassium 3.8 mEq/L (3.5-4.5); Sodium 143 mEq/L (136-145); eGFR For African Americans > 60 (> 60); eGFR For Non-African Americans > 60 (> 60)
[2016-12-20] MEDS: BuPROPion XL (24 HR) 150 MG TABLET PO SCH (08:18)
[2016-12-20] MEDS: Psyllium 1 PACKET POWD.PACK PO SCH (08:18)
[2016-12-20] MEDS: ALPRAZolam 0.5 MG TABLET PO SCH ×4 (08:18→21:35)
[2016-12-20] MEDS: Aspirin Enteric Coated 325 MG Tablet PO SCH (08:18)
[2016-12-20] MEDS: *HR* Rivaroxaban 10 MG TABLET PO SCH (08:18)
[2016-12-20] MEDS: Finasteride 5 MG TABLET PO SCH (08:18)
[2016-12-20] MEDS: *HR* Digoxin 0.125 MG TABLET PO SCH (08:18)
[2016-12-20] MEDS: Diltiazem CD (24hr) 300 MG CAPSULE PO SCH (08:18)
[2016-12-20] MEDS: Metoprolol XL (24 HR) Succ 50 MG TAB.ER.24H PO SCH (08:18)
[2016-12-20] MEDS: Fluticasone Propionate Nasal 50 MCG/SPRAY BOTTLE NS SCH (08:19)
[2016-12-20] MEDS: (Linaclotide [Linzess] 145 MCG) PO SCH (08:19)
[2016-12-20] MEDS: Budesonide/Formoterol 160/4.5 MDI IH SCH ×2 (11:00→20:17)
--- NOTE | 2016-12-20 12:30 | Neurology Progress Note ---
Date of Encounter: 12/20/16 Time of Encounter: 08:10 Assessment and Plan (1) Leg weakness, bilateral Current Visit: Yes Status: Acute (2) Facet arthritis, degenerative, lumbar spine Current Visit: Yes Status: Acute This patient has significant degenerative changes of his lumbar spine and at the same time also has stenosis along with deconditioning I suspect that he was getting weaker and these are not able to ambulate now with his history lives in physical therapy he is showing improvement today's able to lift his leg against gravity could probably would need a spine consultation could be done as an outpatient Patient would benefit from rehabilitation and would need physical therapy on a regular basis. Subjective Interval history: pt seen as fu doing better, he is been getting IV Decadron his leg weakness seems to improve denies been able to lift his leg against gravity still complaining of some pain but not as bad overall he is feeling better Objective - Constitutional Vitals: Temp Pulse Resp BP Pulse Ox 98.6 F 95 17 137/84 97 12/20/16 11:06 12/20/16 11:06 12/20/16 11:06 12/20/16 11:06 12/20/16 11:06 - Neurological Exam Sensorimotor examination: Present: intact Motor examination - right side: 3/5: hip flexors, tibialis Anterior, quadriceps , toe extension (EHL), plantarflexion, 5/5: deltoids, biceps, triceps, wrist flexion, wrist extension, water well driller Motor examination - left side: 3/5: hip flexors, quadriceps, tibialis Anterior, toe extension (EHL), plantarflexion, 5/5: deltoids, biceps, triceps, wrist flexion, wrist extension, water well driller Sensation intact: Present: intact, other (decrease sensation on boht lower ext) Mental Status Examination: Present: awake, alert, oriented to person, oriented to place, oriented to time, follows commands appropriately, answers questions appropriately, no agnosia, no aphasia, no aproxia Cranial nerve examination: Present: PERRL, EOMI, visual trevizo intact, corneal reflexes brisk symmetrically, sensory to face intact, mastication intact, no facial asymmetry is present, no dysarthria, hearing is intact symmetrically, soft palate elevates bilaterally upon phonation, gag reflex intact, flexes SCM and trapezius muscles symmetrically with full power, tongue protrudes midline, no atrophy or facial fasiculations present Cerebellar examination: Present: no dysmetria Results - Laboratory Findings CBC and BMP: 12/20/16 03:48 12/20/16 03:48 Abnormal lab findings: Abnormal lab results WBC 17.7 K/mcL (4.3-11.1) H D 12/20/16 03:48 ESR 13 mm/hr (0-10) H 12/18/16 10:10 PT 12.9 Seconds (9.4-12.1) H 12/17/16 13:33 Glucose 220 mg/dL (70-99) H 12/20/16 03:48 POC Glucose 108 (58-89) H 12/17/16 16:24 Calculated Osmolality 303 (280-300) H 12/20/16 03:48 Lactic Acid 2.4 mmol/L (0.5-2.2) H 12/17/16 13:33 AST 40 Units/L (5-34) H 12/17/16 13:33 Alkaline Phosphatase 138 Units/L (38-126) H 12/17/16 13:33 C-Reactive Protein 11 mg/L (Less than 5) H 12/18/16 10:10 Vitamin B12 957 pg/mL (213-816) H 12/19/16 14:36 Consult Discharge Plan - Plan Referrals: NONE,PCP [Primary Care Provider] -
--- NOTE | 2016-12-20 16:17 | Internal Med Progress Note ---
Date of Encounter: 12/20/16 Time of Encounter: 16:15 - Assessment and plan (1) Facet arthritis, degenerative, lumbar spine Current Visit: Yes Status: Acute Assessment and plan: Improving very slowly Cont PT / OT Reviewed MRI of Spine.. may get benefit with Spine surgery eval.. Consulted Dr. Felder Neuro on board... recommend to continue Steroids + PT / OT (2) Leg weakness, bilateral Current Visit: Yes Status: Acute Assessment and plan: Pt with difficulty ambulating due to bilateral leg weakness. Continue IV steroids for now. (3) Acute respiratory failure with hypoxia Current Visit: Yes Status: Acute Assessment and plan: He does have mild hypoxia mostly due to deconditioning and severe hypoventilation syndrome cont O2 and Duoneb PT / OT working on his therapy (4) A-fib Current Visit: No Status: Chronic Assessment and plan: Rate controlled with home meds on Xarelto for anticoag Qualifiers: Atrial fibrillation type: chronic Qualified Code(s): I48.2 - Chronic atrial fibrillation (5) CAD (coronary artery disease) Current Visit: No Status: Chronic Assessment and plan: Continue home meds. Qualifiers: Coronary Disease-Associated Artery/Lesion type: [place] artery [place] vs. transplanted heart: [place] heart Associated angina: without angina Qualified Code(s): I25.10 - Atherosclerotic heart disease of [place] coronary artery without angina pectoris (6) DVT prophylaxis Current Visit: Yes Status: Acute Assessment and plan: on Xarelto (7) Hypertension Current Visit: No Status: Chronic Assessment and plan: Controlled. continue home meds. Qualifiers: Hypertension type: essential hypertension Qualified Code(s): I10 - Essential (primary) hypertension (8) Hypothyroid Current Visit: No Status: Chronic Assessment and plan: Continue home meds. Qualifiers: Hypothyroidism type: acquired Qualified Code(s): E03.9 - Hypothyroidism, unspecified - Subjective Interval history: Mr. Choi is a 76 year old male past medical history of atrial fibrillation on xarelto for anticoag, hypertension BPH hyperthyroid and CAD with stents was admitted with progressively worsening b/l LE weakness. He was started on IV steroids and PT. Today his b/l LE weakness little better, able to move his LE little bit, however still has severe weakness. Denied any low back pain. No headache / no visual changes / no UE weakness He does c.o mild SOB. No CP - Constitutional Vitals: Temp Pulse Resp BP Pulse Ox 97.2 F L 96 20 147/84 93 12/20/16 14:45 12/20/16 14:45 12/20/16 15:00 12/20/16 14:45 12/20/16 15:00 General appearance: Present: cooperative, A&O X 3, answers questions appropriately - Head Head exam: Present: atraumatic, normal inspection - Respiratory Respiratory exam: Present: decreased breath sounds, wheezes (mild). Absent: rales, respiratory distress, rhonchi - Cardiovascular Cardiovascular exam: Present: RRR, +S1, +S2. Absent: systolic murmur - GI/Abdominal GI/Abdominal exam: Present: normal bowel sounds, soft. Absent: rebound, rigid, tenderness - Extremities Exam Extremities exam: Absent: calf tenderness, pedal edema, tenderness - Neurological Exam Neurological exam: Present: alert, oriented X3. Absent: facial droop, speech deficit Additional comments: significant motor weakness in b/l LE - Psychiatric Psychiatric exam: Present: normal affect, normal mood Internal Medicine: Result - Labs CBC & Chem 7: 12/20/16 03:48 12/20/16 03:48 Labs: Short CBC 12/20/16 Range/Units 03:48 WBC 17.7 H D (4.3-11.1) K/mcL Hgb 14.8 (12.9-16.9) g/dL Hct 42.0 (37.5-50.1) % Plt Count 315 (140-400) K/mcL BMP 12/20/16 03:48 Sodium 143 Potassium 3.8 Chloride 105 Carbon Dioxide 26 BUN 14 Creatinine 0.84 Glucose 220 H Calcium 10.3 - ABG Interpretation ABG results: PT/INR, D-dimer PT 12.9 Seconds (9.4-12.1) H 12/17/16 13:33 Consult Discharge Plan - Plan Referrals: NONE,PCP [Primary Care Provider] -
[2016-12-20] MEDS: Melatonin 3 MG TABLET PO SCH (21:35)
[2016-12-20] MEDS: OLANZapine 10 MG TAB.RAPDIS PO SCH (21:36)
[2016-12-20] MEDS: Loratadine 10 MG TABLET PO SCH (21:44)
[2016-12-21] MEDS: Ipratropium/Albuterol Neb 3 ML IH SCH ×7 (00:35→23:09)
[2016-12-21 03:15] LABS: Basophils % 0.1 %; Hematocrit 43.7 % (37.5-50.1); Hemoglobin 15.3 g/dL (12.9-16.9); Immature Granulocytes % 0.8 % (0-4); Lymphocytes # 0.8 K/mcL (0.6-4.6); Lymphocytes % 4.8 %; Mean Corpuscular Hemoglobin 31.4 pg (28.0-33.3); Mean Corpuscular Volume 89.7 fL (83.0-100.0); Mean Platelet Volume 9.6 fL (9.4-12.4); Monocytes # 0.6 K/mcL (0.0-1.3); Monocytes % 3.4 %; Neutrophils # 14.5 K/mcL (1.6-8.9); Platelet Count 292 K/mcL (140-400); Red Blood Count 4.87 M/mcL (4.19-5.50); Red Cell Distribution Width 13.2 % (11.5-14.5); Segmented Neutrophils % 90.9 %
[2016-12-21 03:35] LABS: BUN/Creatinine Ratio 19 (6-26); Blood Urea Nitrogen 15 mg/dL (8-26); Calcium 10.1 mg/dL (8.6-10.8); Carbon Dioxide 31 mEq/L (19-29); Chloride 104 mEq/L (98-109); Glucose 162 mg/dL (70-99); Osmolality,Calculated 304 (280-300); Potassium 4.1 mEq/L (3.5-4.5); Sodium 145 mEq/L (136-145); eGFR For African Americans > 60 (> 60); eGFR For Non-African Americans > 60 (> 60)
[2016-12-21] MEDS: Budesonide/Formoterol 160/4.5 MDI IH SCH ×2 (07:56→19:32)
[2016-12-21] MEDS: *HR* Digoxin 0.125 MG TABLET PO SCH (10:18)
[2016-12-21] MEDS: Diltiazem CD (24hr) 300 MG CAPSULE PO SCH (10:18)
[2016-12-21] MEDS: BuPROPion XL (24 HR) 150 MG TABLET PO SCH (10:18)
[2016-12-21] MEDS: Metoprolol XL (24 HR) Succ 50 MG TAB.ER.24H PO SCH (10:19)
[2016-12-21] MEDS: ALPRAZolam 0.5 MG TABLET PO SCH ×4 (10:19→20:37)
[2016-12-21] MEDS: Finasteride 5 MG TABLET PO SCH (10:19)
[2016-12-21] MEDS: *HR* Rivaroxaban 10 MG TABLET PO SCH (10:19)
[2016-12-21] MEDS: Fluticasone Propionate Nasal 50 MCG/SPRAY BOTTLE NS SCH (10:20)
[2016-12-21] MEDS: Psyllium 1 PACKET POWD.PACK PO SCH (10:20)
[2016-12-21] MEDS: Aspirin Enteric Coated 325 MG Tablet PO SCH (10:20)
[2016-12-21] MEDS: (Linaclotide [Linzess] 145 MCG) PO SCH (10:21)
[2016-12-21] MEDS: MethylPREDNISolone 40 MG/ML VIAL IVP SCH (10:21)
--- NOTE | 2016-12-21 12:22 | Internal Med Progress Note ---
Date of Encounter: 12/21/16 Time of Encounter: 12:20 - Assessment and plan (1) Facet arthritis, degenerative, lumbar spine Current Visit: Yes Status: Acute Assessment and plan: Improving very slowly Cont PT / OT Reviewed MRI of Spine.. may get benefit with Spine surgery eval.. Consulted Dr. Felder Neuro on board... recommend to continue Steroids + PT / OT (2) Leg weakness, bilateral Current Visit: Yes Status: Acute Assessment and plan: Pt with difficulty ambulating due to bilateral leg weakness. Slowly improving will switch to PO steroids (3) Acute respiratory failure with hypoxia Current Visit: Yes Status: Acute Assessment and plan: He does have hypoxia mostly due to deconditioning and severe hypoventilation syndrome cont O2 and Duoneb Does need to go home on O2 Pt does have complex medical problem with b/l LE weakness and severe deconditioning with hypoxia, so he did required to stay in the hospital more than 3 nights. He still needs higher level of care. So will switch him to full admission today. I did review Dr. Garner's H & P including HPI, PMH, PSH, FH, SH and ROS, no changes noticed. (4) A-fib Current Visit: No Status: Chronic Assessment and plan: Rate controlled with home meds on Xarelto for anticoag If Dr. Felder wants to do surgery will hold off on anti coag Qualifiers: Atrial fibrillation type: chronic Qualified Code(s): I48.2 - Chronic atrial fibrillation (5) CAD (coronary artery disease) Current Visit: No Status: Chronic Assessment and plan: Continue home meds. Qualifiers: Coronary Disease-Associated Artery/Lesion type: [place] artery [place] vs. transplanted heart: [place] heart Associated angina: without angina Qualified Code(s): I25.10 - Atherosclerotic heart disease of [place] coronary artery without angina pectoris (6) DVT prophylaxis Current Visit: Yes Status: Acute Assessment and plan: on Xarelto (7) Hypertension Current Visit: No Status: Chronic Assessment and plan: Controlled. continue home meds. Qualifiers: Hypertension type: essential hypertension Qualified Code(s): I10 - Essential (primary) hypertension (8) Hypothyroid Current Visit: No Status: Chronic Assessment and plan: Continue home meds. Qualifiers: Hypothyroidism type: acquired Qualified Code(s): E03.9 - Hypothyroidism, unspecified - Subjective Interval history: Mr. Choi is a 76 year old male past medical history of atrial fibrillation on xarelto for anticoag, hypertension BPH hyperthyroid and CAD with stents was admitted with progressively worsening b/l LE weakness. He was started on IV steroids and PT. Today his b/l LE weakness little better, able to move his LE little bit, however still has severe weakness. Denied any low back pain. No headache / no visual changes / no UE weakness He does c/o mild SOB. No CP. He is A, A, O x 3. Denied any new complaints. Still on 3 lit O2 - Constitutional Vitals: Temp Pulse Resp BP Pulse Ox 97.4 F L 124 22 157/100 91 12/21/16 11:21 12/21/16 11:21 12/21/16 11:41 12/21/16 11:21 12/21/16 11:41 General appearance: Present: cooperative, A&O X 3, answers questions appropriately - Head Head exam: Present: atraumatic, normal inspection - Respiratory Respiratory exam: Present: decreased breath sounds, wheezes (mild to moderate). Absent: rales, respiratory distress, rhonchi - Cardiovascular Cardiovascular exam: Present: RRR, +S1, +S2. Absent: systolic murmur - GI/Abdominal GI/Abdominal exam: Present: distended, normal bowel sounds, soft. Absent: pulsatile mass, rebound, rigid, tenderness - Extremities Exam Extremities exam: Absent: calf tenderness, pedal edema, tenderness - Back Exam Back exam: Absent: CVA tenderness (L), CVA tenderness (R), tenderness, vertebral tenderness - Neurological Exam Neurological exam: Present: alert, oriented X3. Absent: pronater drift Additional comments: significant motor weakness in b/l LE ..however overall little better today Internal Medicine: Result - Labs CBC & Chem 7: 12/21/16 02:43 12/21/16 02:43 Labs: Short CBC 12/21/16 Range/Units 02:43 WBC 16.0 H (4.3-11.1) K/mcL Hgb 15.3 (12.9-16.9) g/dL Hct 43.7 (37.5-50.1) % Plt Count 292 (140-400) K/mcL Neutrophils # 14.5 H (1.6-8.9) K/mcL BMP 12/21/16 02:43 Sodium 145 Potassium 4.1 Chloride 104 Carbon Dioxide 31 H BUN 15 Creatinine 0.78 Glucose 162 H Calcium 10.1 - ABG Interpretation ABG results: PT/INR, D-dimer PT 12.9 Seconds (9.4-12.1) H 12/17/16 13:33 - Impressions Impressions Chest X-Ray 12/20/16 16:22 IMPRESSION: Gas-filled loop of bowel left upper quadrant of the abdomen questioning a distended stomach or splenic flexure. If the patient's symptoms refer to this region a KUB could be obtained. No acute cardiopulmonary disease. D/ / 12/20/2016 18:44:49 Anton Cancino MD / alizaay Interpreting Provider: Anton Cancino MD Consult Discharge Plan - Plan Referrals: NONE,PCP [Primary Care Provider] -
--- NOTE | 2016-12-21 12:53 | Spinal Consult Note ---
Date of Encounter: 12/21/16 Time of Encounter: 12:50 Assessment and Plan (1) Lumbar stenosis without neurogenic claudication Current Visit: Yes Status: Chronic On exam he is lying comfortably in bed in no acute distress. His power of energy attorney is present in the room and involved in all aspects of the exam and this discussion. Afebrile vital signs stable. He is normal motor strength in the bilateral upper extremities. He has weakness on the right iliopsoas hams and quads which is 3+ on a motor scale. Motor strength on the left lower extremity is 4 minus in the hams quads dorsi and plantar flexors. His hips move symmetrically. He has bilateral total knee arthroplasty scars about the knee. He has lateral deviation of the forefoot bilaterally consistent with chronic, severe posterior tibialis tendon insufficiency. He has no clonus. MRI of the lumbar spine reveals multilevel degenerative changes and moderate/ severe foraminal stenosis L2-S1. Impression: 1) Lumbar stenosis with bilateral lower extremity weakness 2) posterior tibial tendon insufficiency severe bilaterally Plan: Since the patient has no pain and is improving with regard to his motor strength and neurovascular exam I think he should continue nonoperative treatment which will consist of rehabilitation/therapy and perhaps a short course of steroids such as a Medrol Dosepak. He should follow-up in my office in the [facility] in 2 weeks to assess his clinical progress. If he worsens we will consider elective lumbar decompression. In addition, he should be set up with an appointment with Dr. Morillo of podiatry with regard to his severe posterior tibial tendon its insufficiency. There are braces and orthotics which will likely help his condition and his gait impairment as he returns to baseline. (2) Posterior tibialis tendon insufficiency Current Visit: Yes Status: Chronic History of Present Illness Chief complaint: Weakness in lower extremities, difficulty walking HPI: Mr. Choi is a 76 year old male Who is a baseline alf ambulator with either 2 canes or a walker's parents a fall approximately 5 days ago and developed bilateral lower extremity weakness and difficulty with gait. He was brought to the [facility] for evaluation. He denies any pain and lower extremities. He denies any fevers or chills. He had workup by neurology which included CT scan of lumbar spine and MRI of the lumbar spine which revealed multilevel stenosis. We are asked to see regarding potential treatment options. Of note, the patient is improved on intravenous steroids compared to his baseline on admission. Past Med Surg Social Fam HX - Past Medical History Medical history: hypertension, other Psychiatric history: anxiety, depression - Past Surgical History Surgical History: other - Social History Smoking Status: Never smoker Smokeless Tobacco Status: No Alcohol use: none Drug use: none - Family History Mother Living Status: Cause of : Heart disease Father Living Status: Hx Family Cardiac Disorders: Yes (Heart disease) Medications and Allergies Aspirin Enteric Coated [Aspirin EC] 325 mg PO DAILY #21 tablet. 05/24/15 [Rx] OxyCODONE Immed Rel [Roxicodone 5 MG] 5 - 10 mg PO Q6HR PRN #40 tablet 05/24/15 [Rx] ALPRAZolam [Xanax 0.5 MG Tablet] 0.5 mg PO QID 05/25/15 [History] Acetaminophen [Tylenol] 325 mg PO Q4H PRN 05/25/15 [History] Benzonatate [Tessalon] 100 mg PO TID PRN 05/25/15 [History] Bethanechol [Urecholine] 25 mg PO QID 05/25/15 [History] BuPROPion XL (24 HR) [Wellbutrin Xl] 300 mg PO DAILY 05/25/15 [History] Budesonide/Formoterol 160/4.5 [Symbicort 160/4.5] 2 puff IH BIDR 05/25/15 [ History] Digoxin [Lanoxin] 0.125 mg PO DAILY 05/25/15 [History] DiphenhydraMINE [Benadryl] 12.5 mg PO Q8H PRN 05/25/15 [History] Finasteride [Proscar] 5 mg PO DAILY 05/25/15 [History] Fluticasone Propionate Nasal [Flonase] 50 mcg NS DAILY 05/25/15 [History] Furosemide [Lasix] 20 mg PO BID 05/25/15 [History] Hydrocortisone [Proctozone-Hc] 1 appl TP AD PRN 05/25/15 [History] Levothyroxine [Synthroid] 75 mcg PO DAILY 05/25/15 [History] Loratadine [Claritin] 10 mg PO HS 05/25/15 [History] Melatonin [Melatin] 2 mg PO HS 05/25/15 [History] Metoprolol XL (24 HR) Succ [Toprol Xl] 50 mg PO DAILY 05/25/15 [History] OLANZapine [Zyprexa] 20 mg PO HS 05/25/15 [History] Polyethylene Glycol 3350 [MiraLAX] 17 gm PO HS 05/25/15 [History] Potassium Chloride 40 meq PO TID 05/25/15 [History] Pravastatin Sodium [Pravachol] 40 mg PO HS 05/25/15 [History] Psyllium Husk [Metamucil] 660 gm PO DAILY 05/25/15 [History] Rivaroxaban [Xarelto] 20 mg PO DAILY 05/25/15 [History] Tamsulosin [Flomax] 0.4 mg PO HS 05/25/15 [History] Vit A/Vit C/Vit E/Zinc/Copper [Preservision Areds Tablet] 1 tab PO BID 05/25/15 [History] Chlorthalidone 12.5 mg PO DAILY 12/17/16 [History] Diltiazem CD (24hr) [Cardizem CD] 300 mg PO DAILY 12/17/16 [History] Guaifenesin [Mucinex] 600 mg PO Q12H 12/17/16 [History] Ipratropium/Albuterol Neb [Duoneb] 3 ml IH Q4HR 12/17/16 [History] Linaclotide [Linzess] 145 mcg PO DAILY 12/17/16 [History] 3 Allergy/AdvReac Type Severity Reaction Status Date / Time divalproex sodium AdvReac See Verified 05/25/15 16:59 [From Depakote] Comments Imipramine [From Tofranil] AdvReac See Verified 05/25/15 16:59 Comments lamotrigine [From Lamictal] AdvReac See Verified 05/25/15 16:59 Comments [place] AdvReac See Verified 05/25/15 16:59 Comments Nefazodone [From Serzone] AdvReac See Verified 05/25/15 16:59 Comments Results - Labs Result Diagrams: 12/21/16 02:43 12/21/16 02:43 Labs: Abnormal lab results WBC 16.0 K/mcL (4.3-11.1) H 12/21/16 02:43 Neutrophils # 14.5 K/mcL (1.6-8.9) H 12/21/16 02:43 ESR 13 mm/hr (0-10) H 12/18/16 10:10 PT 12.9 Seconds (9.4-12.1) H 12/17/16 13:33 Carbon Dioxide 31 mEq/L (19-29) H 12/21/16 02:43 Glucose 162 mg/dL (70-99) H 12/21/16 02:43 POC Glucose 108 (58-89) H 12/17/16 16:24 Calculated Osmolality 304 (280-300) H 12/21/16 02:43 Lactic Acid 2.4 mmol/L (0.5-2.2) H 12/17/16 13:33 AST 40 Units/L (5-34) H 12/17/16 13:33 Alkaline Phosphatase 138 Units/L (38-126) H 12/17/16 13:33 C-Reactive Protein 11 mg/L (Less than 5) H 12/18/16 10:10 Vitamin B12 957 pg/mL (213-816) H 12/19/16 14:36 H & H 12/21/16 Range/Units 02:43 Hgb 15.3 (12.9-16.9) g/dL Hct 43.7 (37.5-50.1) % All other labs normal. Consult Discharge Plan - Plan Referrals: NONE,PCP [Primary Care Provider] -
--- NOTE | 2016-12-21 15:24 | Neurology Progress Note ---
Date of Encounter: 12/21/16 Time of Encounter: 07:45 Assessment and Plan (1) Leg weakness, bilateral Current Visit: Yes Status: Acute Patient continued to show slow improvement suggested to discontinue IV steroids and changed to the oral he would benefit from acute rehabilitation spine surgeries been consulted at this time I do not think that he will be a surgical candidate perhaps could be evaluated as an outpatient when he is more stable clinically (2) Facet arthritis, degenerative, lumbar spine Current Visit: Yes Status: Acute Subjective Interval history: pt seen as fu doing better, he is been getting IV Decadron his leg weakness seems to improve denies been able to lift his leg against gravity still complaining of some pain but not as bad overall he is feeling better He denies any other new symptoms overall he has improved a spine surgery consult is in place Objective - Constitutional Vitals: Temp Pulse Resp BP Pulse Ox 97.4 F L 124 22 157/100 91 12/21/16 11:21 12/21/16 11:21 12/21/16 11:41 12/21/16 11:21 12/21/16 11:41 - Neurological Exam Sensorimotor examination: Present: intact Motor examination - left side: 3/5: hip flexors, quadriceps, tibialis Anterior, toe extension (EHL), plantarflexion, 5/5: deltoids, biceps, triceps, wrist flexion, wrist extension, internal audit manager Sensation intact: Present: intact, other (decrease sensation on boht lower ext) Mental Status Examination: Present: awake, alert, oriented to person, oriented to place, oriented to time, follows commands appropriately, answers questions appropriately, no agnosia, no aphasia, no aproxia Cranial nerve examination: Present: PERRL, EOMI, visual trevizo intact, corneal reflexes brisk symmetrically, sensory to face intact, mastication intact, no facial asymmetry is present, no dysarthria, hearing is intact symmetrically, soft palate elevates bilaterally upon phonation, gag reflex intact, flexes SCM and trapezius muscles symmetrically with full power, tongue protrudes midline, no atrophy or facial fasiculations present Cerebellar examination: Present: no dysmetria Results - Laboratory Findings CBC and BMP: 12/21/16 02:43 12/21/16 02:43 Abnormal lab findings: Abnormal lab results WBC 16.0 K/mcL (4.3-11.1) H 12/21/16 02:43 Neutrophils # 14.5 K/mcL (1.6-8.9) H 12/21/16 02:43 ESR 13 mm/hr (0-10) H 12/18/16 10:10 PT 12.9 Seconds (9.4-12.1) H 12/17/16 13:33 Carbon Dioxide 31 mEq/L (19-29) H 12/21/16 02:43 Glucose 162 mg/dL (70-99) H 12/21/16 02:43 POC Glucose 108 (58-89) H 12/17/16 16:24 Calculated Osmolality 304 (280-300) H 12/21/16 02:43 Lactic Acid 2.4 mmol/L (0.5-2.2) H 12/17/16 13:33 AST 40 Units/L (5-34) H 12/17/16 13:33 Alkaline Phosphatase 138 Units/L (38-126) H 12/17/16 13:33 C-Reactive Protein 11 mg/L (Less than 5) H 12/18/16 10:10 Vitamin B12 957 pg/mL (213-816) H 12/19/16 14:36 Consult Discharge Plan - Plan Referrals: NONE,PCP [Primary Care Provider] -
[2016-12-21] MEDS: OLANZapine 10 MG TAB.RAPDIS PO SCH (20:37)
[2016-12-21] MEDS: Loratadine 10 MG TABLET PO SCH (20:37)
[2016-12-21] MEDS: Melatonin 3 MG TABLET PO SCH (20:37)
[2016-12-22] MEDS: Ipratropium/Albuterol Neb 3 ML IH SCH ×6 (03:46→23:33)
[2016-12-22] MEDS: Budesonide/Formoterol 160/4.5 MDI IH SCH ×2 (08:02→19:56)
[2016-12-22] MEDS: Psyllium 1 PACKET POWD.PACK PO SCH (08:35)
[2016-12-22] MEDS: *HR* Digoxin 0.125 MG TABLET PO SCH (08:35)
[2016-12-22] MEDS: Diltiazem CD (24hr) 300 MG CAPSULE PO SCH (08:35)
[2016-12-22] MEDS: Aspirin Enteric Coated 325 MG Tablet PO SCH (08:35)
[2016-12-22] MEDS: Fluticasone Propionate Nasal 50 MCG/SPRAY BOTTLE NS SCH (08:35)
[2016-12-22] MEDS: Finasteride 5 MG TABLET PO SCH (08:36)
[2016-12-22] MEDS: Metoprolol XL (24 HR) Succ 50 MG TAB.ER.24H PO SCH (08:36)
[2016-12-22] MEDS: BuPROPion XL (24 HR) 150 MG TABLET PO SCH (08:36)
[2016-12-22] MEDS: (Linaclotide [Linzess] 145 MCG) PO SCH (08:36)
[2016-12-22] MEDS: predniSONE 20 MG TABLET PO SCH (08:36)
[2016-12-22] MEDS: ALPRAZolam 0.5 MG TABLET PO SCH ×4 (08:37→21:31)
[2016-12-22] MEDS: *HR* Rivaroxaban 10 MG TABLET PO SCH (08:37)
--- NOTE | 2016-12-22 13:15 | Internal Med Progress Note ---
Date of Encounter: 12/22/16 Time of Encounter: 13:06 - Assessment and plan (1) Facet arthritis, degenerative, lumbar spine Current Visit: Yes Status: Acute Assessment and plan: Improving very slowly Reviewed MRI of Spine.. may get benefit with Spine surgery eval.. Consulted Dr. Felder - who recommend to continue current non operative treatment with PT / OT / Analgesics and short course of steroids If no improvement in 2 weeks, may need surgical intervention Neuro on board... recommend to continue Steroids + PT / OT PT / OT suggested for ECF placement.. SW working on it (2) Leg weakness, bilateral Current Visit: Yes Status: Acute Assessment and plan: Pt with difficulty ambulating due to bilateral leg weakness. Slowly improving Cont PO steroids (3) Acute respiratory failure with hypoxia Current Visit: Yes Status: Acute Assessment and plan: He does have hypoxia mostly due to deconditioning and severe hypoventilation syndrome cont O2 and Duoneb Does need to go home on O2. (4) A-fib Current Visit: No Status: Chronic Assessment and plan: Rate controlled with home meds on Xarelto for anticoag Qualifiers: Atrial fibrillation type: chronic Qualified Code(s): I48.2 - Chronic atrial fibrillation (5) CAD (coronary artery disease) Current Visit: No Status: Chronic Assessment and plan: Continue home meds. Qualifiers: Coronary Disease-Associated Artery/Lesion type: [place] artery [place] vs. transplanted heart: [place] heart Associated angina: without angina Qualified Code(s): I25.10 - Atherosclerotic heart disease of [place] coronary artery without angina pectoris (6) DVT prophylaxis Current Visit: Yes Status: Acute Assessment and plan: on Xarelto (7) Hypertension Current Visit: No Status: Chronic Assessment and plan: Controlled. continue home meds. Qualifiers: Hypertension type: essential hypertension Qualified Code(s): I10 - Essential (primary) hypertension (8) Hypothyroid Current Visit: No Status: Chronic Assessment and plan: Continue home meds. Qualifiers: Hypothyroidism type: acquired Qualified Code(s): E03.9 - Hypothyroidism, unspecified - Subjective Interval history: Mr. Choi is a 76 year old male past medical history of atrial fibrillation on xarelto for anticoag, hypertension BPH hyperthyroid and CAD with stents was admitted with progressively worsening b/l LE weakness. He was started on IV steroids and PT. Today his b/l LE weakness little better, able to move his LE little bit, however still has severe weakness. Denied any low back pain. No headache / no visual changes / no UE weakness He does c/o mild SOB. No CP. He is A, A, O x 3. Denied any new complaints. Still on 3 lit O2 - Constitutional Vitals: Temp Pulse Resp BP Pulse Ox 97.6 F 107 16 128/86 92 12/22/16 10:28 12/22/16 10:28 12/22/16 11:04 12/22/16 10:28 12/22/16 11:04 General appearance: Present: cooperative, A&O X 3, answers questions appropriately - Head Head exam: Present: atraumatic, normal inspection - Neck Neck exam general surgery: Present: supple - Cardiovascular Cardiovascular exam: Present: RRR, +S1, +S2. Absent: systolic murmur - GI/Abdominal GI/Abdominal exam: Present: normal bowel sounds, soft. Absent: rebound, rigid, tenderness - Extremities Exam Extremities exam: Absent: calf tenderness, pedal edema, tenderness - Neurological Exam Neurological exam: Present: alert, CN II-XII intact, motor sensory deficit, oriented X3. Absent: facial droop, speech deficit Additional comments: improving motor weakness in both LE - Psychiatric Psychiatric exam: Present: normal affect, normal mood Internal Medicine: Result - Labs CBC & Chem 7: 12/21/16 02:43 12/21/16 02:43 - ABG Interpretation ABG results: PT/INR, D-dimer PT 12.9 Seconds (9.4-12.1) H 12/17/16 13:33 Consult Discharge Plan - Plan Referrals: NONE,PCP [Primary Care Provider] -
[2016-12-22] MEDS: Loratadine 10 MG TABLET PO SCH (21:30)
[2016-12-22] MEDS: Melatonin 3 MG TABLET PO SCH (21:31)
[2016-12-22] MEDS: OLANZapine 10 MG TAB.RAPDIS PO SCH (21:31)
[2016-12-23] MEDS: Ipratropium/Albuterol Neb 3 ML IH SCH ×6 (03:16→23:51)
[2016-12-23] MEDS: Budesonide/Formoterol 160/4.5 MDI IH SCH ×2 (07:40→19:57)
[2016-12-23] MEDS: ALPRAZolam 0.5 MG TABLET PO SCH (08:21)
[2016-12-23] MEDS: Diltiazem CD (24hr) 300 MG CAPSULE PO SCH (08:21)
[2016-12-23] MEDS: Psyllium 1 PACKET POWD.PACK PO SCH (08:21)
[2016-12-23] MEDS: Finasteride 5 MG TABLET PO SCH (08:21)
[2016-12-23] MEDS: Aspirin Enteric Coated 325 MG Tablet PO SCH (08:21)
[2016-12-23] MEDS: Metoprolol XL (24 HR) Succ 50 MG TAB.ER.24H PO SCH (08:21)
[2016-12-23] MEDS: predniSONE 20 MG TABLET PO SCH (08:22)
[2016-12-23] MEDS: BuPROPion XL (24 HR) 150 MG TABLET PO SCH (08:22)
[2016-12-23] MEDS: *HR* Rivaroxaban 10 MG TABLET PO SCH (08:22)
[2016-12-23] MEDS: *HR* Digoxin 0.125 MG TABLET PO SCH (08:22)
[2016-12-23] MEDS: (Linaclotide [Linzess] 145 MCG) PO SCH (09:03)
[2016-12-23] MEDS: Fluticasone Propionate Nasal 50 MCG/SPRAY BOTTLE NS SCH (09:05)
--- NOTE | 2016-12-23 11:54 | Internal Med Progress Note ---
Date of Encounter: 12/23/16 Time of Encounter: 11:52 - Assessment and plan (1) Facet arthritis, degenerative, lumbar spine Current Visit: Yes Status: Acute Assessment and plan: Improving very slowly Reviewed MRI of Spine.. may get benefit with Spine surgery eval.. Consulted Dr. Felder - who recommend to continue current non operative treatment with PT / OT / Analgesics and short course of steroids If no improvement in 2 weeks, may need surgical intervention Neuro on board... recommend to continue Steroids + PT / OT PT / OT suggested for ECF placement.. SW working on it (2) Acute delirium Current Visit: Yes Status: Acute Assessment and plan: Could be due to prolong hospitalization with underline dementia Also concerned about his scheduled Xanax too will change Xanax to PRN also will get ABG to r/o any Co2 retention (3) Leg weakness, bilateral Current Visit: Yes Status: Acute Assessment and plan: Pt with difficulty ambulating due to bilateral leg weakness. Slowly improving Cont PO steroids (4) Acute respiratory failure with hypoxia Current Visit: Yes Status: Acute Assessment and plan: He does have hypoxia mostly due to deconditioning and severe hypoventilation syndrome since he is confused, little concerned about Co2 retention will get an ABG now.. If he is retaining CO2 will use BiPAP cont O2 and [place] Does need to go ECF on O2. (5) A-fib Current Visit: No Status: Chronic Assessment and plan: Rate controlled with home meds on Xarelto for anticoag Qualifiers: Atrial fibrillation type: chronic Qualified Code(s): I48.2 - Chronic atrial fibrillation (6) CAD (coronary artery disease) Current Visit: No Status: Chronic Assessment and plan: Continue home meds. Qualifiers: Coronary Disease-Associated Artery/Lesion type: [place] artery [place] vs. transplanted heart: [place] heart Associated angina: without angina Qualified Code(s): I25.10 - Atherosclerotic heart disease of [place] coronary artery without angina pectoris (7) DVT prophylaxis Current Visit: Yes Status: Acute Assessment and plan: on Xarelto (8) Hypertension Current Visit: No Status: Chronic Assessment and plan: Controlled. continue home meds. Qualifiers: Hypertension type: essential hypertension Qualified Code(s): I10 - Essential (primary) hypertension (9) Hypothyroid Current Visit: No Status: Chronic Assessment and plan: Continue home meds. Qualifiers: Hypothyroidism type: acquired Qualified Code(s): E03.9 - Hypothyroidism, unspecified - Subjective Interval history: Mr. Choi is a 76 year old male past medical history of atrial fibrillation on xarelto for anticoag, hypertension BPH hyperthyroid and CAD with stents was admitted with progressively worsening b/l LE weakness. He was started on IV steroids and PT. Today his b/l LE weakness little better, able to move his LE little bit, however still has severe weakness. Denied any low back pain. No headache / no visual changes / no UE weakness He does c/o mild SOB. No CP. He is A, A, oriented to person, place and self only. Looks confused. Denied any new complaints. Still on 3 lit O2 - Constitutional Vitals: Temp Pulse Resp BP Pulse Ox 97.5 F L 78 17 168/84 92 12/23/16 03:36 12/23/16 07:53 12/23/16 07:53 12/23/16 07:53 12/23/16 09:07 General appearance: Present: cooperative, A&O X 3, answers questions appropriately - Head Head exam: Present: atraumatic, normal inspection - Respiratory Respiratory exam: Present: decreased breath sounds, wheezes (mild). Absent: rales, respiratory distress, rhonchi - Cardiovascular Cardiovascular exam: Present: RRR, +S1, +S2. Absent: systolic murmur - GI/Abdominal GI/Abdominal exam: Present: soft. Absent: rebound, rigid, tenderness - Extremities Exam Extremities exam: Absent: calf tenderness, pedal edema, tenderness - Back Exam Back exam: Absent: CVA tenderness (L), CVA tenderness (R) - Neurological Exam Neurological exam: Present: alert, altered - Psychiatric Psychiatric exam: Present: depressed Internal Medicine: Result - Labs CBC & Chem 7: 12/21/16 02:43 12/21/16 02:43 - ABG Interpretation ABG results: PT/INR, D-dimer PT 12.9 Seconds (9.4-12.1) H 12/17/16 13:33 Consult Discharge Plan - Plan Referrals: NONE,PCP [Primary Care Provider] -
[2016-12-23 12:51] LABS: ABG Base Excess 4 mEq/L (-2 to 3); ABG HCO3 28 mEq/L (21-27); ABG Oxygen Saturation 96 % (95-98); ABG PCO2 42 mmHg (35-45); ABG PH 7.43 pH Units (7.32-7.45); ABG PO2 78 mmHg (85-104); ABG TCO2 30 mEq/L (20-26)
[2016-12-23] MEDS: Loratadine 10 MG TABLET PO SCH (21:24)
[2016-12-23] MEDS: OLANZapine 10 MG TAB.RAPDIS PO SCH (21:24)
[2016-12-23] MEDS: Melatonin 3 MG TABLET PO SCH (21:24)
[2016-12-23] MEDS: ALPRAZolam 0.5 MG TABLET PO PRN (21:24)
[2016-12-24 02:53] LABS: Basophils % 0.4 %; Eosinophils # 0.1 K/mcL (0.0-0.6); Eosinophils % 1.2 %; Hematocrit 48.5 % (37.5-50.1); Hemoglobin 16.8 g/dL (12.9-16.9); Lymphocytes # 1.6 K/mcL (0.6-4.6); Mean Corpuscular HGB Conc 34.6 g/dL (31.6-35.5); Mean Corpuscular Hemoglobin 31.6 pg (28.0-33.3); Mean Corpuscular Volume 91.3 fL (83.0-100.0); Mean Platelet Volume 9.1 fL (9.4-12.4); Monocytes # 1.2 K/mcL (0.0-1.3); Monocytes % 10.7 %; Neutrophils # 8.2 K/mcL (1.6-8.9); Platelet Count 307 K/mcL (140-400); Red Blood Count 5.31 M/mcL (4.19-5.50); Red Cell Distribution Width 12.9 % (11.5-14.5); Segmented Neutrophils % 72.7 %
[2016-12-24 03:16] LABS: BUN/Creatinine Ratio 23 (6-26); Blood Urea Nitrogen 18 mg/dL (8-26); Calcium 9.7 mg/dL (8.6-10.8); Carbon Dioxide 31 mEq/L (19-29); Chloride 102 mEq/L (98-109); Glucose 125 mg/dL (70-99); Osmolality,Calculated 297 (280-300); Potassium 3.9 mEq/L (3.5-4.5); Sodium 142 mEq/L (136-145); eGFR For African Americans > 60 (> 60); eGFR For Non-African Americans > 60 (> 60)
[2016-12-24] MEDS: Ipratropium/Albuterol Neb 3 ML IH SCH ×4 (03:35→15:55)
[2016-12-24] MEDS: predniSONE 20 MG TABLET PO SCH (08:00)
[2016-12-24] MEDS: Budesonide/Formoterol 160/4.5 MDI IH SCH (08:00)
[2016-12-24] MEDS: Finasteride 5 MG TABLET PO SCH (08:00)
[2016-12-24] MEDS: *HR* Rivaroxaban 10 MG TABLET PO SCH (08:00)
[2016-12-24] MEDS: Metoprolol XL (24 HR) Succ 50 MG TAB.ER.24H PO SCH (08:00)
[2016-12-24] MEDS: Diltiazem CD (24hr) 300 MG CAPSULE PO SCH (08:00)
[2016-12-24] MEDS: BuPROPion XL (24 HR) 150 MG TABLET PO SCH (08:00)
[2016-12-24] MEDS: *HR* Digoxin 0.125 MG TABLET PO SCH (08:00)
[2016-12-24] MEDS: Aspirin Enteric Coated 325 MG Tablet PO SCH (08:00)
[2016-12-24] MEDS: Psyllium 1 PACKET POWD.PACK PO SCH (08:01)
[2016-12-24] MEDS: (Linaclotide [Linzess] 145 MCG) PO SCH (08:01)
[2016-12-24] MEDS: ALPRAZolam 0.5 MG TABLET PO PRN (08:02)
[2016-12-24] MEDS: Fluticasone Propionate Nasal 50 MCG/SPRAY BOTTLE NS SCH (08:02)
--- NOTE | 2016-12-24 11:39 | Discharge Summary ---
Date of Encounter: 12/24/16 Time of Encounter: 11:34 - Discharge Diagnosis (1) Facet arthritis, degenerative, lumbar spine Priority: Primary Status: Acute (2) Acute delirium Priority: Primary Status: Acute (3) Leg weakness, bilateral Priority: Primary Status: Acute (4) Acute respiratory failure with hypoxia Priority: Secondary Status: Acute (5) A-fib Priority: Secondary Status: Chronic Qualifiers: Atrial fibrillation type: chronic Qualified Code(s): I48.2 - Chronic atrial fibrillation (6) CAD (coronary artery disease) Priority: Secondary Status: Chronic Qualifiers: Coronary Disease-Associated Artery/Lesion type: [place] artery [place] vs. transplanted heart: [place] heart Associated angina: without angina Qualified Code(s): I25.10 - Atherosclerotic heart disease of [place] coronary artery without angina pectoris (7) DVT prophylaxis Priority: Secondary Status: Acute (8) Hypertension Priority: Secondary Status: Chronic Qualifiers: Hypertension type: essential hypertension Qualified Code(s): I10 - Essential (primary) hypertension (9) Hypothyroid Priority: Secondary Status: Chronic Qualifiers: Hypothyroidism type: acquired Qualified Code(s): E03.9 - Hypothyroidism, unspecified - Discharge Medications Prescriptions: OxyCODONE Immed Rel [Roxicodone 5 MG] 5 mg PO Q6HR PRN #20 tablet PRN Reason: Pain ALPRAZolam [Xanax 0.5 MG Tablet] 0.5 mg PO TID PRN #15 tablet PRN Reason: Anxiety predniSONE [PredniSONE] 40 mg PO DAILY #10 tablet Home Medications: Aspirin Enteric Coated [Aspirin EC] 325 mg PO DAILY #21 tablet. 05/24/15 [Rx] ALPRAZolam [Xanax 0.5 MG Tablet] 0.5 mg PO QID 05/25/15 [History] Acetaminophen [Tylenol] 325 mg PO Q4H PRN 05/25/15 [History] Benzonatate [Tessalon] 100 mg PO TID PRN 05/25/15 [History] Bethanechol [Urecholine] 25 mg PO QID 05/25/15 [History] BuPROPion XL (24 HR) [Wellbutrin Xl] 300 mg PO DAILY 05/25/15 [History] Budesonide/Formoterol 160/4.5 [Symbicort 160/4.5] 2 puff IH BIDR 05/25/15 [ History] Digoxin [Lanoxin] 0.125 mg PO DAILY 05/25/15 [History] DiphenhydraMINE [Benadryl] 12.5 mg PO Q8H PRN 05/25/15 [History] Finasteride [Proscar] 5 mg PO DAILY 05/25/15 [History] Fluticasone Propionate Nasal [Flonase] 50 mcg NS DAILY 05/25/15 [History] Furosemide [Lasix] 20 mg PO BID 05/25/15 [History] Hydrocortisone [Proctozone-Hc] 1 appl TP AD PRN 05/25/15 [History] Levothyroxine [Synthroid] 75 mcg PO DAILY 05/25/15 [History] Loratadine [Claritin] 10 mg PO HS 05/25/15 [History] Melatonin [Melatin] 2 mg PO HS 05/25/15 [History] Metoprolol XL (24 HR) Succ [Toprol Xl] 50 mg PO DAILY 05/25/15 [History] OLANZapine [Zyprexa] 20 mg PO HS 05/25/15 [History] Polyethylene Glycol 3350 [MiraLAX] 17 gm PO HS 05/25/15 [History] Potassium Chloride 40 meq PO TID 05/25/15 [History] Pravastatin Sodium [Pravachol] 40 mg PO HS 05/25/15 [History] Psyllium Husk [Metamucil] 660 gm PO DAILY 05/25/15 [History] Rivaroxaban [Xarelto] 20 mg PO DAILY 05/25/15 [History] Tamsulosin [Flomax] 0.4 mg PO HS 05/25/15 [History] Vit A/Vit C/Vit E/Zinc/Copper [Preservision Areds Tablet] 1 tab PO BID 05/25/15 [History] Diltiazem CD (24hr) [Cardizem CD] 300 mg PO DAILY 12/17/16 [History] Guaifenesin [Mucinex] 600 mg PO Q12H 12/17/16 [History] Linaclotide [Linzess] 145 mcg PO DAILY 12/17/16 [History] ALPRAZolam [Xanax 0.5 MG Tablet] 0.5 mg PO TID PRN #15 tablet 12/24/16 [Rx] Ipratropium/Albuterol Neb [Duoneb] 3 ml IH Q4HR PRN #0 12/24/16 [Rx] OxyCODONE Immed Rel [Roxicodone 5 MG] 5 mg PO Q6HR PRN #20 tablet 12/24/16 [Rx] predniSONE [PredniSONE] 40 mg PO DAILY #10 tablet 12/24/16 [Rx] Allergies/Adverse Reactions: 3 Allergy/AdvReac Type Severity Reaction Status Date / Time divalproex sodium AdvReac See Verified 05/25/15 16:59 [From Depakote] Comments Imipramine [From Tofranil] AdvReac See Verified 05/25/15 16:59 Comments lamotrigine [From Lamictal] AdvReac See Verified 05/25/15 16:59 Comments [place] AdvReac See Verified 05/25/15 16:59 Comments Nefazodone [From Serzone] AdvReac See Verified 05/25/15 16:59 Comments Date of admission: 12/21/16 12:37 Primary care physician: PCP NONE - Patient Status Disposition: Transfer SNF Condition: Good Overall status at discharge: patient is back to baseline - Discharge Instructions Follow Up With: NONE,PCP [Primary Care Provider] - Jeancarlos Felder Jr, MD [Partnered Physician] - - Diet and Activity Activity: as per physical therapy, increase activity as tolerated, wear oxygen at all times (3) Diet: low salt diet Hospital course: Mr. Choi is a 76 year old male past medical history of atrial fibrillation on xarelto for anticoag, hypertension BPH hyperthyroid and CAD with stents was admitted with progressively worsening b/l LE weakness. He was admitted in the hospital and started him on IV steroids and aggressive PT / OT. He was evaluated by Neuro. He did have MRI of lumbar spine done which showed multilevel degenerative changes and moderate/severe foraminal stenosis L2-S1. So we consulted spine surgery Dr. Felder, who recommend to continue current medical management and PT / OT. If symptoms wont improve in 2 -3 weeks, he will consider about surgery. Pt b/l LE weakness started improving slowly. He happened to be in severe hypoxic resp failure due to severe deconditioning and hypoventilation syndrome. He does required 3 lit O2 continuously. Hoping it would improve with PT / OT. - Time Spent with Patient Total time spent providing and/or coordinating discharge services: - Constitutional Vitals: Temp Pulse Resp BP Pulse Ox 98.3 F 86 17 123/82 93 12/24/16 07:15 12/24/16 07:15 12/24/16 11:20 12/24/16 07:15 12/24/16 11:20 General appearance: Present: cooperative, A&O X 3, answers questions appropriately - Head Head exam: Present: atraumatic, normal inspection - Respiratory Respiratory exam: Absent: chest wall tenderness, respiratory distress, rhonchi, wheezes - Cardiovascular Cardiovascular exam: Present: RRR, +S1, +S2. Absent: systolic murmur - GI/Abdominal GI/Abdominal exam: Present: normal bowel sounds, soft. Absent: rebound, rigid, tenderness - Extremities Exam Extremities exam: Absent: calf tenderness, pedal edema, tenderness - Back Exam Back exam: Absent: CVA tenderness (L), CVA tenderness (R), rash noted - Neurological Exam Neurological exam: Present: alert, oriented X3 Additional comments: improving b/l LE weakness
--- NOTE | 2016-12-24 11:42 | Physician Discharge Referral ---
ExtendedCare Referral Info Transfer To: [facility] Provider in Charge after Transfer: PCP Institutional Level of Care: Skilled - Diagnosis (1) Facet arthritis, degenerative, lumbar spine Status: Acute (2) Acute delirium Status: Acute (3) Leg weakness, bilateral Status: Acute (4) Acute respiratory failure with hypoxia Status: Acute (5) A-fib Status: Chronic (6) CAD (coronary artery disease) Status: Chronic (7) DVT prophylaxis Status: Acute (8) Hypertension Status: Chronic (9) Hypothyroid Status: Chronic - Transfer Medications Prescriptions: OxyCODONE Immed Rel [Roxicodone 5 MG] 5 mg PO Q6HR PRN #20 tablet PRN Reason: Pain ALPRAZolam [Xanax 0.5 MG Tablet] 0.5 mg PO TID PRN #15 tablet PRN Reason: Anxiety predniSONE [PredniSONE] 40 mg PO DAILY #10 tablet Home Medications: Aspirin Enteric Coated [Aspirin EC] 325 mg PO DAILY #21 tablet. 05/24/15 [Rx] ALPRAZolam [Xanax 0.5 MG Tablet] 0.5 mg PO QID 05/25/15 [History] Acetaminophen [Tylenol] 325 mg PO Q4H PRN 05/25/15 [History] Benzonatate [Tessalon] 100 mg PO TID PRN 05/25/15 [History] Bethanechol [Urecholine] 25 mg PO QID 05/25/15 [History] BuPROPion XL (24 HR) [Wellbutrin Xl] 300 mg PO DAILY 05/25/15 [History] Budesonide/Formoterol 160/4.5 [Symbicort 160/4.5] 2 puff IH BIDR 05/25/15 [ History] Digoxin [Lanoxin] 0.125 mg PO DAILY 05/25/15 [History] DiphenhydraMINE [Benadryl] 12.5 mg PO Q8H PRN 05/25/15 [History] Finasteride [Proscar] 5 mg PO DAILY 05/25/15 [History] Fluticasone Propionate Nasal [Flonase] 50 mcg NS DAILY 05/25/15 [History] Furosemide [Lasix] 20 mg PO BID 05/25/15 [History] Hydrocortisone [Proctozone-Hc] 1 appl TP AD PRN 05/25/15 [History] Levothyroxine [Synthroid] 75 mcg PO DAILY 05/25/15 [History] Loratadine [Claritin] 10 mg PO HS 05/25/15 [History] Melatonin [Melatin] 2 mg PO HS 05/25/15 [History] Metoprolol XL (24 HR) Succ [Toprol Xl] 50 mg PO DAILY 05/25/15 [History] OLANZapine [Zyprexa] 20 mg PO HS 05/25/15 [History] Polyethylene Glycol 3350 [MiraLAX] 17 gm PO HS 05/25/15 [History] Potassium Chloride 40 meq PO TID 05/25/15 [History] Pravastatin Sodium [Pravachol] 40 mg PO HS 05/25/15 [History] Psyllium Husk [Metamucil] 660 gm PO DAILY 05/25/15 [History] Rivaroxaban [Xarelto] 20 mg PO DAILY 05/25/15 [History] Tamsulosin [Flomax] 0.4 mg PO HS 05/25/15 [History] Vit A/Vit C/Vit E/Zinc/Copper [Preservision Areds Tablet] 1 tab PO BID 05/25/15 [History] Diltiazem CD (24hr) [Cardizem CD] 300 mg PO DAILY 12/17/16 [History] Guaifenesin [Mucinex] 600 mg PO Q12H 12/17/16 [History] Linaclotide [Linzess] 145 mcg PO DAILY 12/17/16 [History] ALPRAZolam [Xanax 0.5 MG Tablet] 0.5 mg PO TID PRN #15 tablet 12/24/16 [Rx] Ipratropium/Albuterol Neb [Duoneb] 3 ml IH Q4HR PRN #0 12/24/16 [Rx] OxyCODONE Immed Rel [Roxicodone 5 MG] 5 mg PO Q6HR PRN #20 tablet 12/24/16 [Rx] predniSONE [PredniSONE] 40 mg PO DAILY #10 tablet 12/24/16 [Rx] Allergies/Adverse Reactions: 3 Allergy/AdvReac Type Severity Reaction Status Date / Time divalproex sodium AdvReac See Verified 05/25/15 16:59 [From Depakote] Comments Imipramine [From Tofranil] AdvReac See Verified 05/25/15 16:59 Comments lamotrigine [From Lamictal] AdvReac See Verified 05/25/15 16:59 Comments [place] AdvReac See Verified 05/25/15 16:59 Comments Nefazodone [From Serzone] AdvReac See Verified 05/25/15 16:59 Comments - Respiratory Orders Smoking Cessation: Smoking cessation has been advised. For more information, call the [place] Tobacco Quit Line at 1-686-WKWP-NOW. CERTIFICATION: I certify that the transfer of the above named patient to an Extended Care Facility is necessary for the continuing treatment of the diagnosis listed. The above information is true and accurate reflection of patient's current condition. Confidential - Redisclosure prohibited without a patient's written consent.
[2016-12-24 11:45] VITALS: BP 100/59
== END 2016-12-24 15:50 | DRG 551 ==
LOC: 3BNU 12:40 → EMEROO 12:40 → SUATTDRO 15:13 → 3BNU 16:06
PROVIDERS: ADMIT Nurse Practitioner Family; ATTEND Family Medicine

== ENCOUNTER 2017-01-27 13:56 | Inpatient (IN) ==
[2017-01-27] MEDS ORDERED: Ipratropium/Albuterol Neb 3 ML IH ONE (14:17)
--- NOTE | 2017-01-27 14:53 | Emergency Department Note ---
Disposition Clinical Impression: Healthcare associated bacterial pneumonia, Hypoxia, COPD exacerbation Disposition: Admitted As Inpatient Condition: Fair General Adult HPI - General Chief complaint: ED Shortness of Breath/Dyspnea Stated complaint: Diff breathing Time Seen by Provider: 01/27/17 14:00 Source: EMS Mode of arrival: EMS Limitations: no limitations Nursing Notes Reviewed: Yes Vital Signs Reviewed: Yes - History of Present Illness HPI Narrative: 76-year-old male who presents from a local nursing facility due to continued cough and shortness of breath after being treated for pneumonia. She recently finished his course of antibiotics and is only having worsening of his symptoms. EMS was called to the nursing facility due to hypoxia and high 70s and he is on chronic oxygen at the nursing facility. He is on 2 L while he is there. He has a past medical history of CHF, COPD, A. fib on Xarelto, CAD with stents placed years ago. He admits to a productive cough with yellow sputum. he had a breathing treatment by EMS which he said helped substantially. No chest pain. He has chronic LE edema which is unchanged. Radiation: non-radiation Pain Scale: 0 Consistency: constant Improves with: nothing Worsens with: nothing Associated symptoms: Reports: denies other symptoms Treatments Prior to Arrival: none - Related Data Home Medications Medication Instructions Recorded Confirmed ALPRAZolam [Xanax 0.5 MG Tablet] 0.5 mg PO Q8H PRN 05/25/15 01/27/17 Acetaminophen [Tylenol] 325 mg PO Q4H PRN 05/25/15 01/27/17 Benzonatate [Tessalon] 100 mg PO TID PRN 05/25/15 01/27/17 Bethanechol [Urecholine] 25 mg PO QID 05/25/15 01/27/17 BuPROPion XL (24 HR) [Wellbutrin 300 mg PO DAILY 05/25/15 01/27/17 Xl] Budesonide/Formoterol 160/4.5 2 puff IH BIDR 05/25/15 01/27/17 [Symbicort 160/4.5] Digoxin [Lanoxin] 0.125 mg PO DAILY 05/25/15 01/27/17 DiphenhydraMINE [Benadryl] 12.5 mg PO Q6H PRN 05/25/15 01/27/17 Finasteride [Proscar] 5 mg PO DAILY 05/25/15 01/27/17 Fluticasone Propionate Nasal 50 mcg NS DAILY 05/25/15 01/27/17 [Flonase] Hydrocortisone [Proctozone-Hc] 1 appl TP AD PRN 05/25/15 01/27/17 Levothyroxine [Synthroid] 75 mcg PO DAILY 05/25/15 01/27/17 Loratadine [Claritin] 10 mg PO HS 05/25/15 01/27/17 Melatonin [Melatin] 6 mg PO HS PRN 05/25/15 01/27/17 Metoprolol XL (24 HR) Succ [Toprol 50 mg PO DAILY 05/25/15 01/27/17 Xl] OLANZapine [Zyprexa] 20 mg PO HS 05/25/15 01/27/17 Polyethylene Glycol 3350 [MiraLAX] 17 gm PO HS 05/25/15 01/27/17 Potassium Chloride 40 meq PO TID 05/25/15 01/27/17 Pravastatin Sodium [Pravachol] 40 mg PO HS 05/25/15 01/27/17 Psyllium Husk [Metamucil] 660 gm PO DAILY PRN 05/25/15 01/27/17 Rivaroxaban [Xarelto] 20 mg PO DAILY 05/25/15 01/27/17 Tamsulosin [Flomax] 0.4 mg PO HS 05/25/15 01/27/17 Vit A/Vit C/Vit E/Zinc/Copper 1 tab PO BID 05/25/15 01/27/17 [Preservision Areds Tablet] Diltiazem CD (24hr) [Cardizem CD] 300 mg PO DAILY 12/17/16 01/27/17 Guaifenesin [Mucinex] 600 mg PO Q12H 12/17/16 01/27/17 Linaclotide [Linzess] 145 mcg PO DAILY 12/17/16 01/27/17 ALPRAZolam [Xanax 0.5 MG Tablet] 0.5 mg PO DAILY 01/27/17 01/27/17 Cephalexin [Keflex] 500 mg PO TID 01/27/17 01/27/17 Eucalyptus/Menthol [Cough Drops] 2 each MM Q4H PRN 01/27/17 01/27/17 Previous Rx's Medication Instructions Recorded Ipratropium/Albuterol Neb [Duoneb] 3 ml IH Q4HR PRN #0 12/24/16 OxyCODONE Immed Rel [Roxicodone 5 5 mg PO Q6HR PRN #20 tablet 12/24/16 MG] Allergies Allergy/AdvReac Type Severity Reaction Status Date / Time amitriptyline Allergy Rash Verified 01/27/17 15:24 divalproex sodium AdvReac Rash Verified 01/27/17 15:24 [From Depakote] Imipramine [From Tofranil] AdvReac Rash Verified 01/27/17 15:24 lamotrigine [From Lamictal] AdvReac Rash Verified 01/27/17 15:24 [place] AdvReac Rash Verified 01/27/17 15:24 Nefazodone [From Serzone] AdvReac See Verified 01/27/17 15:24 Comments All systems ED: reviewed and negative except as stated. Constitutional: Denies: fever Eyes: Denies: vision change ENT ED: Denies: throat pain Cardiovascular: Denies: chest pain Respiratory: Reports: cough, dyspnea Gastrointestinal: Denies: abdominal pain Musculoskeletal: Denies: back pain Integumentary: Denies: rash Past Medical History - Past Medical History Medical history: Reports: CHF, COPD, hypertension, other Surgical history: Reports: other Psychiatric history: Reports: anxiety, depression - Social History Smoking Status: Never smoker Smokeless Tobacco Status: No Alcohol use: Reports: none Drug use: Reports: none Physical Exam - General Limitations: no limitations General appearance: alert, anxious - Head Head exam: atraumatic - Eye Eye exam: Present: normal appearance - ENT ENT exam: normal exam, normal oropharynx - Neck Neck exam: Present: normal inspection - Chest Chest inspection: Present: normal inspection - Respiratory Respiratory exam: Present: other (coarse lung sounds throughout). Absent: respiratory distress - Cardiovascular Cardiovascular exam: Present: regular rate, normal rhythm - Abdominal Exam Abdominal exam: Present: soft, Non-Tender - Extremities Exam Extremities exam: Present: other (3+ LE edema) - Neurological Exam Neurological exam: Present: alert, oriented X3 - Psychiatric Psychiatric exam: Present: normal affect, normal mood - Skin Skin exam: Present: warm, dry Course Course Narrative: No respiratory distress. Increased O2 requirement. Is currently on 5L NC to maintain SPO2. CXR shows LLL pneumonia. Will admit for HCAP/failed outpatient therapy. No abdominal pain. EKG shows Afib w/o RVR. Chronic ST depression in anterior leads. Will order vanc/zosyn/levaquin. In no respiratory distress. Vital Signs Temperature 97.9 F 01/27/17 14:00 Pulse Rate 91 01/27/17 14:00 Respiratory Rate 22 01/27/17 14:00 Blood Pressure 128/68 01/27/17 14:00 O2 Sat by Pulse Oximetry 93 01/27/17 14:00 Temperature 98.1 F 01/27/17 16:52 Pulse Rate 92 01/27/17 15:32 Respiratory Rate 20 01/27/17 16:52 Blood Pressure 120/75 01/27/17 16:52 O2 Sat by Pulse Oximetry 93 01/27/17 15:32 Oxygen Delivery Oxygen Delivery Nasal Cannula Medical Decision Making - Medical Records Medical records reviewed: Yes I reviewed the patient's medical records. - Lab Data Lab results reviewed: Yes I reviewed the patient's lab results. Result diagrams: 01/27/17 14:38 01/27/17 14:38 - Radiology Data Radiology results reviewed: Yes I reviewed the patient's radiology results. - EKG Data EKG #1 EKG attestation: Yes I reviewed and interpreted this EKG. Rate: normal Rhythm: A.Fib [place]/QRS: normal When compared to previous EKG there are: no significant changes Interpretation: no acute changes Attestation Statement - Attestation Attestation: I examined this patient and my medical decision-making was reviewed with the Resident Physician, Dr. Hope. I agree with the documented findings, disposition and treatment plan as described except to the extent set forth below. Patient is a 76-year-old elderly white female who has a history of COPD, CHF, A. fib who presents to the emergency department with gradually worsening breathing following completion of antibiotics 3 days ago for pneumonia. Patient arrives hypoxic on supplemental oxygen, he is on 2 L nasal cannula daily. Patient with conversational dyspnea and tachypnea on arrival. Patient denies any chest pain pressure or heaviness, no back pain no flank pain or abdominal pain no nausea vomiting no cough or posttussive emesis. Patient states that he feels that he started the antibiotics but just never felt any better. Patient's physical exam findings as documented. Pt's EKG shows chronic anterior ST depression but unchanged today. Patient received a breathing treatment here which helped and he is on his baseline 2 L now satting 93%. Patient labs are unremarkable with a negative BNP and troponin. Patient's chest x-ray shows a left lower lobe pneumonia. Patient's lactate is within normal limits. We will initiate antibiotics for healthcare acquired pneumonia and admit the patient for further evaluation and management.
[2017-01-27 14:56] LABS: Basophils # 0.1 K/mcL (0.0-0.2); Basophils % 0.6 %; Eosinophils % 0.2 %; Hematocrit 43.6 % (37.5-50.1); Hemoglobin 14.5 g/dL (12.9-16.9); Immature Granulocytes % 0.2 % (0-4); Lymphocytes # 1.3 K/mcL (0.6-4.6); Lymphocytes % 14.6 %; Mean Corpuscular HGB Conc 33.3 g/dL (31.6-35.5); Mean Corpuscular Hemoglobin 30.9 pg (28.0-33.3); Mean Platelet Volume 8.9 fL (9.4-12.4); Monocytes % 10.9 %; Neutrophils # 6.6 K/mcL (1.6-8.9); Platelet Count 284 K/mcL (140-400); Red Blood Count 4.69 M/mcL (4.19-5.50); Red Cell Distribution Width 13.3 % (11.5-14.5); Segmented Neutrophils % 73.5 %
[2017-01-27 15:00] LABS: INR 2.4; Prothrombin Time 25.8 Seconds (9.4-12.1)
[2017-01-27] MEDS ORDERED: Piperacillin/Tazobactam 3.375 GM in Water for inj. (sterile) 20 ML IVP ONE (15:01)
[2017-01-27] MEDS ORDERED: Vancomycin 1,500 MG in D5% in Water 250 ML IVPB ONE (15:01)
[2017-01-27 15:03] LABS: Activated Partial Thrombo Time 48.5 Seconds (26.0-36.0)
[2017-01-27 15:10] LABS: BUN/Creatinine Ratio 15 (6-26); Blood Urea Nitrogen 10 mg/dL (8-26); Calcium 8.7 mg/dL (8.6-10.8); Carbon Dioxide 25 mEq/L (19-29); Chloride 95 mEq/L (98-109); Glucose 118 mg/dL (70-99); Osmolality,Calculated 274 (280-300); Potassium 4.4 mEq/L (3.5-4.5); Sodium 132 mEq/L (136-145); eGFR For African Americans > 60 (> 60); eGFR For Non-African Americans > 60 (> 60)
[2017-01-27] MEDS ORDERED: Acetaminophen 325 MG TABLET PO ONE (15:12)
[2017-01-27] MEDS ORDERED: Levofloxacin 750 MG/150 ML 750 MG/150 ML BAG IVPB ONE (15:14)
[2017-01-27 15:18] LABS: Digoxin 0.3 ng/mL (0.8-2.0)
[2017-01-27] MEDS ORDERED: methylPREDNISolone 125 MG/2 ML VIAL IVP ONE (15:18)
[2017-01-27] MEDS ORDERED: Levofloxacin 750 MG/150 ML 750 MG/150 ML BAG IVPB SCH (16:00)
[2017-01-27] MEDS ORDERED: Ondansetron 4 MG/2 ML VIAL IVP PRN (17:08)
[2017-01-27] MEDS ORDERED: Naloxone 0.4 MG/ML INJ IVP PRN (17:08)
[2017-01-27] MEDS ORDERED: Acetaminophen 325 MG TABLET PO PRN (17:08)
[2017-01-27] MEDS ORDERED: Albuterol 2.5 MG/3 ML NEBULIZER IH PRN (17:17)
[2017-01-27] MEDS ORDERED: Melatonin 3 MG TABLET PO PRN (17:19)
[2017-01-27] MEDS ORDERED: Psyllium 1 PACKET POWD.PACK PO PRN (17:19)
[2017-01-27] MEDS ORDERED: Benzonatate 100 MG CAPSULE PO PRN (17:19)
[2017-01-27] MEDS ORDERED: Menthol 9.1 MG LOZENGE MM PRN (17:19)
[2017-01-27] MEDS ORDERED: Hydrocortisone Rectal 2.5% CRM 28 GM TUBE RC PRN (17:19)
--- NOTE | 2017-01-27 17:28 | Internal Med History&Physical ---
Date of Encounter: 01/27/17 Time of Encounter: 17:22 Assessment and Plan (1) Acute on chronic respiratory failure with hypoxemia Current visit: Yes Status: Acute Pt chronically on 2 liters at [facility] and now on 4. Will titrate as much as possible. (2) Pneumonia Current visit: Yes Status: Acute Pt with acute pneumonia clinically and on CXR. He has failed treatment with abx at [facility]. He will be admitted and placed on IV abx to cover possible gram neg pneumonia as he is chronically in a facility. Aerosols and steroids ordered too. Oxygen titration. Qualifiers: Pneumonia type: due to other aerobic Gram-negative bacteria Laterality: left Lung location: lower lobe of lung Qualified Code(s): J15.6 - Pneumonia due to other Gram-negative bacteria (3) COPD exacerbation Current visit: Yes Status: Acute Suspect there is a component of COPD exacerbation Aerosols and steroids ordered. Continue Mucinex (4) A-fib Current visit: No Status: Chronic Continue rate control meds and Xarelto. Qualifiers: Atrial fibrillation type: chronic Qualified Code(s): I48.2 - Chronic atrial fibrillation (5) CAD (coronary artery disease) Current visit: No Status: Chronic Continue chronic meds from F Currently is asymptomatic Qualifiers: Coronary Disease-Associated Artery/Lesion type: [place] artery [place] vs. transplanted heart: [place] heart Associated angina: without angina Qualified Code(s): I25.10 - Atherosclerotic heart disease of [place] coronary artery without angina pectoris (6) Hypertension Current visit: No Status: Chronic Controlled at this time Continue chronic meds. Qualifiers: Hypertension type: essential hypertension Qualified Code(s): I10 - Essential (primary) hypertension (7) Hypothyroid Current visit: No Status: Chronic Continue chronic Synthroid Qualifiers: Hypothyroidism type: acquired Qualified Code(s): E03.9 - Hypothyroidism, unspecified (8) Stage 1 decubitus ulcer Current visit: Yes Status: Acute Qualifiers: Pressure ulcer location: buttock Laterality: unspecified laterality Qualified Code(s): L89.301 - Pressure ulcer of unspecified buttock, stage 1 (9) Unstageable decubitus ulcer Current visit: Yes Status: Acute Qualifiers: Pressure ulcer location: heel Laterality: right Qualified Code(s): L89.610 - Pressure ulcer of right heel, unstageable (10) Unstageable decubitus ulcer Current visit: Yes Status: Acute Qualifiers: Pressure ulcer location: heel Laterality: left Qualified Code(s): L89.620 - Pressure ulcer of left heel, unstageable (11) Unstageable decubitus ulcer Current visit: Yes Status: Acute Qualifiers: Pressure ulcer location: knee Laterality: left Qualified Code(s): L89.890 - Pressure ulcer of other site, unstageable Internal Medicine - H&P: HPI Chief complaint: Cough and dyspnea Admitted From: Emergency Dept Plans for Post Hospital Care: Transfer [facility] History of present illness: Mr. Choi is a 76 year old male with hx of COPD and chronic a fib transferred to ED from [facility] due to hypoxia and cough. He has recently been diagnosed with pneumonia and placed on antibiotics. He has continued to have cough and dyspnea despite treatment. Today EMS was called due to hypoxia. He is on 2-3 L NC at [facility] and was found to have saturation in 70s. He continues to have dyspnea and cough productive of yellow sputum. He denies fever at facility. No CP. Uses cough medicine. In squad he was given aerosol with improvement. At this time he remains moderately dyspneic. He says he is still congested and coughing. His POA is listed as: [facility] [phone], [phone]. He has a signed state DNR form list DNRCCA. He is high risk due to continued respiratory symptoms despite treatment and hypoxemia. He has need for IV medications and monitoring. Past Med Surg Social Fam HX - Past Medical History Medical history: atrial fibrillation, CHF, COPD, hypertension, thyroid disease ( irritable bowel syndrome, BPH, constipation, insomnia), other Psychiatric history: anxiety, depression - Past Surgical History Surgical History: knee replacement (L knee, L shoulder), other - Social History Smoking Status: Never smoker Smokeless Tobacco Status: No Alcohol use: none Drug use: none Current living situation: [facility] - Family History Mother Living Status: Hx Family Cardiac Disorders: Yes Father Living Status: Hx Family Cardiac Disorders: Yes (Heart disease) Hx Family Cancer: Yes Hx Family GI Disorders: No Hx Family Genitourinary Disorders: No Hx Family Endocrine Disorder: No Hx Family Musculoskeletal Disorders: No Hx Family Neuromuscular Disorders: No Hx Family Neurologic Disorders: No Hx Family HEENT Disorders: No Hx Family Autoimmune Disorders: No Hx Family Reproductive Disorders: No Hx Family Psychosocial Disorders: No Hx Family Medical Disorders: No Internal Medicine - H&P: Meds ALPRAZolam [Xanax 0.5 MG Tablet] 0.5 mg PO Q8H PRN 05/25/15 [History] Acetaminophen [Tylenol] 325 mg PO Q4H PRN 05/25/15 [History] Benzonatate [Tessalon] 100 mg PO TID PRN 05/25/15 [History] Bethanechol [Urecholine] 25 mg PO QID 05/25/15 [History] BuPROPion XL (24 HR) [Wellbutrin Xl] 300 mg PO DAILY 05/25/15 [History] Budesonide/Formoterol 160/4.5 [Symbicort 160/4.5] 2 puff IH BIDR 05/25/15 [ History] Digoxin [Lanoxin] 0.125 mg PO DAILY 05/25/15 [History] DiphenhydraMINE [Benadryl] 12.5 mg PO Q6H PRN 05/25/15 [History] Finasteride [Proscar] 5 mg PO DAILY 05/25/15 [History] Fluticasone Propionate Nasal [Flonase] 50 mcg NS DAILY 05/25/15 [History] Hydrocortisone [Proctozone-Hc] 1 appl TP AD PRN 05/25/15 [History] Levothyroxine [Synthroid] 75 mcg PO DAILY 05/25/15 [History] Loratadine [Claritin] 10 mg PO HS 05/25/15 [History] Melatonin [Melatin] 6 mg PO HS PRN 05/25/15 [History] Metoprolol XL (24 HR) Succ [Toprol Xl] 50 mg PO DAILY 05/25/15 [History] OLANZapine [Zyprexa] 20 mg PO HS 05/25/15 [History] Polyethylene Glycol 3350 [MiraLAX] 17 gm PO HS 05/25/15 [History] Potassium Chloride 40 meq PO TID 05/25/15 [History] Pravastatin Sodium [Pravachol] 40 mg PO HS 05/25/15 [History] Psyllium Husk [Metamucil] 660 gm PO DAILY PRN 05/25/15 [History] Rivaroxaban [Xarelto] 20 mg PO DAILY 05/25/15 [History] Tamsulosin [Flomax] 0.4 mg PO HS 05/25/15 [History] Vit A/Vit C/Vit E/Zinc/Copper [Preservision Areds Tablet] 1 tab PO BID 05/25/15 [History] Diltiazem CD (24hr) [Cardizem CD] 300 mg PO DAILY 12/17/16 [History] Guaifenesin [Mucinex] 600 mg PO Q12H 12/17/16 [History] Linaclotide [Linzess] 145 mcg PO DAILY 12/17/16 [History] Ipratropium/Albuterol Neb [Duoneb] 3 ml IH Q4HR PRN #0 12/24/16 [Rx] OxyCODONE Immed Rel [Roxicodone 5 MG] 5 mg PO Q6HR PRN #20 tablet 12/24/16 [Rx] ALPRAZolam [Xanax 0.5 MG Tablet] 0.5 mg PO DAILY 01/27/17 [History] Cephalexin [Keflex] 500 mg PO TID 01/27/17 [History] Eucalyptus/Menthol [Cough Drops] 2 each MM Q4H PRN 01/27/17 [History] 3 Allergy/AdvReac Type Severity Reaction Status Date / Time amitriptyline Allergy Rash Verified 01/27/17 15:24 divalproex sodium AdvReac Rash Verified 01/27/17 15:24 [From Depakote] Imipramine [From Tofranil] AdvReac Rash Verified 01/27/17 15:24 lamotrigine [From Lamictal] AdvReac Rash Verified 01/27/17 15:24 [place] AdvReac Rash Verified 01/27/17 15:24 Nefazodone [From Serzone] AdvReac See Verified 01/27/17 15:24 Comments All Systems PM: A 10-system review of systems was performed and is negative for pertinent findings except as documented above in the HPI. - Constitutional Constitutional: as per HPI, fatigue, malaise - EENT Eyes: no dry eye, no pain Ears: decreased hearing Nose, mouth and throat: no mouth pain, no sore throat - Cardiovascular Cardiovascular ROS IM: dyspnea, dyspnea on exertion, no chest pain, no lightheadedness - Respiratory Respiratory: cough, dyspnea, dyspnea on exertion, chest congestion, excessive phlegm production, change in phlegm color - Gastrointestinal Gastrointestinal: constipation, no abdominal pain, no change in bowel habits - Genitourinary Genitourinary ROS male: urinary hesitancy, no nocturia - Musculoskeletal Musculoskeletal ROS IM: arthralgias, no stiffness - Integumentary Integumentary IM: new lesions, skin ulcer - Neurological Neurological ROS: no confusion, no dizziness, no numbness - Psychiatric Psychiatric: depression - Endocrine Endocrine IM: no cold intolerance, no polydipsia - Hematologic/Lymphatic Hematologic/Lymphatic: no easy bleeding - Allergic/Immunologic Allergic/Immunologic: no itchy eyes - Constitutional Vitals: Temp Pulse Resp BP Pulse Ox 98.1 F 92 20 120/75 93 01/27/17 16:52 01/27/17 15:32 01/27/17 16:52 01/27/17 16:52 01/27/17 15:32 General appearance: Present: A&O X 3, answers questions appropriately Exam: Moderate distress due to chest congestion and dyspnea - Head Head exam: Present: atraumatic, normocephalic - Eye Eye exam: Present: EOMI, conjuntiva pink - ENT ENT exam: Present: mucous membranes dry - Neck Neck exam general surgery: Absent: tenderness, thyromegaly - Respiratory Respiratory exam: Present: respiratory distress, rhonchi, wheezes, tachypnea Additional comments: Mild resp distress - Cardiovascular Cardiovascular exam: Present: irregular rhythm. Absent: tachycardia - GI/Abdominal GI/Abdominal exam: Present: distended, hyperactive bowel sounds, soft. Absent: tenderness - Extremities Exam Extremities exam: Present: warm. Absent: tenderness Additional comments: Unstageable wounds on both heel areas, unstageable wound on L knee, multiple excoriated areas bilateral thighs. - Neurological Exam Neurological exam: Present: alert, oriented X3, no focal deficits - Psychiatric Psychiatric exam: Present: normal affect - Skin Skin exam: Present: dry, excoriation, warm Internal Med - H&P Results - Labs CBC & Chem 7: 01/27/17 14:38 01/27/17 14:38 - Diagnostic Studies Chest x-ray Status: image reviewed by me Additional comments: LLL infiltrate
[2017-01-27] MEDS: MethylPREDNISolone 40 MG/ML VIAL IVP SCH (17:37)
[2017-01-27] MEDS ORDERED: Vancomycin (wt based) 1,000 MG VIAL IVPB SCH (18:00)
[2017-01-27] MEDS: Ipratropium/Albuterol Neb 3 ML IH SCH ×2 (19:35→22:42)
[2017-01-27] MEDS: OLANZapine 10 MG TAB.RAPDIS PO SCH (20:52)
[2017-01-27] MEDS: Loratadine 10 MG TABLET PO SCH (20:52)
[2017-01-27] MEDS: VIT A PO SCH (21:04)
[2017-01-27] MEDS: COPPER PO SCH (21:04)
[2017-01-27] MEDS: VIT E PO SCH (21:04)
[2017-01-27] MEDS: VIT C PO SCH (21:04)
[2017-01-27] MEDS: ZINC PO SCH (21:04)
[2017-01-27] MEDS: Piperacillin/Tazobactam 3.375 GM/200 ML BAG IVPB SCH (22:14)
[2017-01-27] MEDS: Budesonide/Formoterol 160/4.5 MDI IH SCH (22:42)
[2017-01-28] MEDS: MethylPREDNISolone 40 MG/ML VIAL IVP SCH ×4 (00:19→18:09)
[2017-01-28 04:06] LABS: Hemoglobin 15.1 g/dL (12.9-16.9); Mean Corpuscular HGB Conc 33.6 g/dL (31.6-35.5); Mean Corpuscular Hemoglobin 31.4 pg (28.0-33.3); Mean Corpuscular Volume 93.6 fL (83.0-100.0); Mean Platelet Volume 9.1 fL (9.4-12.4); Platelet Count 310 K/mcL (140-400); Red Blood Count 4.81 M/mcL (4.19-5.50); Red Cell Distribution Width 13.2 % (11.5-14.5)
[2017-01-28] MEDS: Ipratropium/Albuterol Neb 3 ML IH SCH ×4 (04:09→22:22)
[2017-01-28 04:12] LABS: BUN/Creatinine Ratio 13 (6-26); Blood Urea Nitrogen 10 mg/dL (8-26); Calcium 9.3 mg/dL (8.6-10.8); Carbon Dioxide 31 mEq/L (19-29); Chloride 96 mEq/L (98-109); Glucose 165 mg/dL (70-99); Osmolality,Calculated 283 (280-300); Potassium 4.7 mEq/L (3.5-4.5); Sodium 135 mEq/L (136-145); eGFR For African Americans > 60 (> 60); eGFR For Non-African Americans > 60 (> 60)
[2017-01-28] MEDS: Piperacillin/Tazobactam 3.375 GM/200 ML BAG IVPB SCH ×3 (05:29→21:01)
[2017-01-28] MEDS ORDERED: Vancomycin 1,750 MG in D5% in Water 500 ML IVPB SCH (06:00)
[2017-01-28] MEDS: Metoprolol XL (24 HR) Succ 50 MG TAB.ER.24H PO SCH (08:07)
[2017-01-28] MEDS: ALPRAZolam 0.5 MG TABLET PO SCH (08:07)
[2017-01-28] MEDS: BuPROPion XL (24 HR) 150 MG TABLET PO SCH (08:07)
[2017-01-28] MEDS: *HR* Rivaroxaban 10 MG TABLET PO SCH (08:07)
[2017-01-28] MEDS: *HR* Digoxin 0.125 MG TABLET PO SCH (08:07)
[2017-01-28] MEDS: Diltiazem CD (24hr) 300 MG CAPSULE PO SCH (08:07)
[2017-01-28] MEDS: Levofloxacin 750 MG/150 ML 750 MG/150 ML BAG IVPB SCH (08:08)
[2017-01-28] MEDS: Finasteride 5 MG TABLET PO SCH (08:08)
[2017-01-28] MEDS: Fluticasone Propionate Nasal 50 MCG/SPRAY BOTTLE NS SCH (08:10)
[2017-01-28] MEDS ORDERED: Albuterol 2.5 MG/3 ML NEBULIZER IH SCH (08:30)
--- NOTE | 2017-01-28 08:42 | Internal Med Progress Note ---
<Cindy Olivas - Last Filed: 01/28/17 09:00> Date of Encounter: 01/28/17 Time of Encounter: 08:37 - Assessment and plan (1) Acute on chronic respiratory failure with hypoxemia Current Visit: Yes Status: Acute Assessment and plan: Patient is on 2 L chronic nasal cannula at [facility]. Has increasing oxygen requirements likely secondary to pneumonia with COPD exacerbation. Continue to mean oxygen is tolerated. Further treatment as part pneumonia and COPD exacerbation. (2) Pneumonia Current Visit: Yes Status: Acute Assessment and plan: Chest x-ray with evidence of left lower lobe patchy developing consolidation he was treated at [facility] with oral antibiotics and worsening dyspnea and increasing oxygen requirements requiring admission continue IV antibiotics Levaquin, zosyn, vancomycin (day 2) for healthcare associated pneumonia, will transition to oral antibiotics at overall conditioning proves continue supplemental oxygen as needed, baseline oxygen requirement is to leaders continue intravenous steroids every 6 hours (day 2), will plan to transition to oral steroids once condition is more stable continue scheduled to every 6 hours Qualifiers: Pneumonia type: due to other aerobic Gram-negative bacteria Laterality: left Lung location: lower lobe of lung Qualified Code(s): J15.6 - Pneumonia due to other Gram-negative bacteria (3) COPD exacerbation Current Visit: Yes Status: Acute Assessment and plan: Patient has history of COPD with COPD exacerbation likely secondary to healthcare associated pneumonia antibiotics as previously described, steroids as previously described continue supplemental oxygen, patient has baseline requirement of 2 L continue Mucinex (4) A-fib Current Visit: No Status: Chronic Assessment and plan: Chronic. Stable. Rate controlled. Continue home medications Qualifiers: Atrial fibrillation type: chronic Qualified Code(s): I48.2 - Chronic atrial fibrillation (5) CAD (coronary artery disease) Current Visit: No Status: Chronic Assessment and plan: Chronic. Stable. Currently asymptomatic Continue home medications Qualifiers: Coronary Disease-Associated Artery/Lesion type: [place] artery [place] vs. transplanted heart: [place] heart Associated angina: without angina Qualified Code(s): I25.10 - Atherosclerotic heart disease of [place] coronary artery without angina pectoris (6) Hypertension Current Visit: No Status: Chronic Assessment and plan: Chronic. Stable. Blood pressure controlled continue home medications Qualifiers: Hypertension type: essential hypertension Qualified Code(s): I10 - Essential (primary) hypertension (7) Hypothyroid Current Visit: No Status: Chronic Assessment and plan: Chronic. Stable. Continue home Synthroid Qualifiers: Hypothyroidism type: acquired Qualified Code(s): E03.9 - Hypothyroidism, unspecified (8) Stage 1 decubitus ulcer Current Visit: Yes Status: Acute Qualifiers: Pressure ulcer location: buttock Laterality: unspecified laterality Qualified Code(s): L89.301 - Pressure ulcer of unspecified buttock, stage 1 (9) Unstageable decubitus ulcer Current Visit: Yes Status: Acute Qualifiers: Pressure ulcer location: heel Laterality: right Qualified Code(s): L89.610 - Pressure ulcer of right heel, unstageable (10) Unstageable decubitus ulcer Current Visit: Yes Status: Acute Qualifiers: Pressure ulcer location: heel Laterality: left Qualified Code(s): L89.620 - Pressure ulcer of left heel, unstageable (11) Unstageable decubitus ulcer Current Visit: Yes Status: Acute Qualifiers: Pressure ulcer location: knee Laterality: left Qualified Code(s): L89.890 - Pressure ulcer of other site, unstageable - Subjective Interval history: 76-year-old male with history of COPD transferred from formerly [facility] care facility after feeling treatment for pneumonia and found to be hypoxic to the 70s despite being on 2 to 3 L nasal cannula of supplemental oxygen. He was admitted secondary to oral antibiotic treatment failure and increasing oxygen requirements. Overnight there were no acute issues. He remains on IV antibiotics. When asked this morning he states that he feels as if his breathing is a little bit better. He has no other acute concerns this morning. - Constitutional Vitals: Temp Pulse Resp BP Pulse Ox 97.5 F L 98 20 124/69 96 01/28/17 06:39 01/28/17 06:39 01/28/17 06:39 01/28/17 06:39 01/28/17 06:39 General appearance: Present: cooperative, pleasant, no acute distress - Head Head exam: Present: atraumatic, normocephalic - ENT ENT exam: Present: mucous membranes moist - Neck Neck exam general surgery: Present: supple, trachea midline - Respiratory Respiratory exam: Present: decreased breath sounds, wheezes (Expiratory, scattered, bilateral). Absent: accessory muscle use, rales, rhonchi - GI/Abdominal GI/Abdominal exam: Present: distended, hyperactive bowel sounds, soft. Absent: guarding, rebound, tenderness - Skin Skin exam: Present: dry, intact, warm Internal Medicine: Result - Labs CBC & Chem 7: 01/28/17 03:31 01/28/17 03:31 Labs: Short CBC 01/28/17 Range/Units 03:31 WBC 5.8 (4.3-11.1) K/mcL Hgb 15.1 (12.9-16.9) g/dL Hct 45.0 (37.5-50.1) % Plt Count 310 (140-400) K/mcL BMP 01/28/17 03:31 Sodium 135 L Potassium 4.7 H Chloride 96 L Carbon Dioxide 31 H BUN 10 Creatinine 0.75 Glucose 165 H Calcium 9.3 - ABG Interpretation ABG results: PT/INR, D-dimer PT 25.8 Seconds (9.4-12.1) H 01/27/17 14:38 - Impressions Impressions KUB X-Ray 01/28/17 17:15 IMPRESSION: Gaseous distention of the stomach without evidence for small bowel obstruction. D/ / Reggie Gallagher MD / Reggie Gallagher MD Interpreting Provider: Reggie Gallagher MD Consult Discharge Plan - Plan Referrals: NONE,PCP [Non-Partnered Physician] - <Abilio Capone - Last Filed: 01/28/17 14:56> Date of Encounter: 01/28/17 - Assessment and plan (1) Acute on chronic respiratory failure with hypoxemia Current Visit: Yes Status: Acute (2) Pneumonia Current Visit: Yes Status: Acute Qualifiers: Pneumonia type: due to other aerobic Gram-negative bacteria Laterality: left Lung location: lower lobe of lung Qualified Code(s): J15.6 - Pneumonia due to other Gram-negative bacteria (3) COPD exacerbation Current Visit: Yes Status: Acute (4) A-fib Current Visit: No Status: Chronic Qualifiers: Atrial fibrillation type: chronic Qualified Code(s): I48.2 - Chronic atrial fibrillation (5) CAD (coronary artery disease) Current Visit: No Status: Chronic Qualifiers: Coronary Disease-Associated Artery/Lesion type: [place] artery [place] vs. transplanted heart: [place] heart Associated angina: without angina Qualified Code(s): I25.10 - Atherosclerotic heart disease of [place] coronary artery without angina pectoris (6) Hypertension Current Visit: No Status: Chronic Qualifiers: Hypertension type: essential hypertension Qualified Code(s): I10 - Essential (primary) hypertension (7) Hypothyroid Current Visit: No Status: Chronic Qualifiers: Hypothyroidism type: acquired Qualified Code(s): E03.9 - Hypothyroidism, unspecified (8) Stage 1 decubitus ulcer Current Visit: Yes Status: Acute Qualifiers: Pressure ulcer location: buttock Laterality: unspecified laterality Qualified Code(s): L89.301 - Pressure ulcer of unspecified buttock, stage 1 (9) Unstageable decubitus ulcer Current Visit: Yes Status: Acute Qualifiers: Pressure ulcer location: heel Laterality: right Qualified Code(s): L89.610 - Pressure ulcer of right heel, unstageable (10) Unstageable decubitus ulcer Current Visit: Yes Status: Acute Qualifiers: Pressure ulcer location: heel Laterality: left Qualified Code(s): L89.620 - Pressure ulcer of left heel, unstageable (11) Unstageable decubitus ulcer Current Visit: Yes Status: Acute Qualifiers: Pressure ulcer location: knee Laterality: left Qualified Code(s): L89.890 - Pressure ulcer of other site, unstageable - Constitutional Vitals: Temp Pulse Resp BP Pulse Ox 98.0 F 84 20 119/74 87 01/28/17 11:27 01/28/17 11:27 01/28/17 11:27 01/28/17 11:27 01/28/17 11:27 Internal Medicine: Result - Labs CBC & Chem 7: 01/28/17 03:31 01/28/17 13:59 Labs: Short CBC 01/28/17 Range/Units 03:31 WBC 5.8 (4.3-11.1) K/mcL Hgb 15.1 (12.9-16.9) g/dL Hct 45.0 (37.5-50.1) % Plt Count 310 (140-400) K/mcL BMP 01/28/17 01/28/17 03:31 13:59 Sodium 135 L 135 L Potassium 4.7 H 4.6 H Chloride 96 L 96 L Carbon Dioxide 31 H 30 H BUN 10 13 Creatinine 0.75 0.77 Glucose 165 H 214 H Calcium 9.3 9.2 - ABG Interpretation ABG results: PT/INR, D-dimer PT 25.8 Seconds (9.4-12.1) H 01/27/17 14:38 - Impressions Impressions KUB X-Ray 01/28/17 17:15 IMPRESSION: Gaseous distention of the stomach without evidence for small bowel obstruction. D/ / Reggie Gallagher MD / Reggie Gallagher MD Interpreting Provider: Reggie Gallagher MD - Attending Attestation I examined this patient and my medical decision-making was reviewed with the Resident Physician on 01/28/17. I agree with the documented findings, disposition and treatment plan as described except to the extent set forth below. Mr Choi is currently admitted for acute hypoxic resp failure due to pneumonia. He remains moderate to high risk due to potential for worsening respiratory status. Mr Choi is alert but still having a fair amount of respiratory distress at times. He is still wheezing. He has been afebrile. Denies pain. Still has cough with sputum production. Exam Alert. Mild respiratory distress Mucus membranes dry Heart distant Lungs with diffuse end exp wheeze and rhonchi Abd soft Edema present I/P 1. Hypoxia 2. Pneumonia Recheck CXR today. Further diagnoses and plan as above.
[2017-01-28] MEDS: Budesonide/Formoterol 160/4.5 MDI IH SCH ×2 (10:30→22:22)
[2017-01-28] MEDS: VIT A PO SCH ×2 (12:33→20:25)
[2017-01-28] MEDS: VIT C PO SCH ×2 (12:33→20:25)
[2017-01-28] MEDS: VIT E PO SCH ×2 (12:33→20:25)
[2017-01-28] MEDS: (Linaclotide [Linzess] 145 MCG) PO SCH (12:33)
[2017-01-28] MEDS: ZINC PO SCH ×2 (12:33→20:25)
[2017-01-28] MEDS: COPPER PO SCH ×2 (12:33→20:25)
[2017-01-28] MEDS: *HR* OxyCODONE Immed Rel 5 MG TABLET PO PRN ×2 (13:42→20:24)
[2017-01-28 14:49] LABS: BUN/Creatinine Ratio 17 (6-26); Blood Urea Nitrogen 13 mg/dL (8-26); Calcium 9.2 mg/dL (8.6-10.8); Carbon Dioxide 30 mEq/L (19-29); Chloride 96 mEq/L (98-109); Glucose 214 mg/dL (70-99); Osmolality,Calculated 287 (280-300); Potassium 4.6 mEq/L (3.5-4.5); Sodium 135 mEq/L (136-145); eGFR For African Americans > 60 (> 60); eGFR For Non-African Americans > 60 (> 60)
[2017-01-28] MEDS: Vancomycin 1,750 MG in D5% in Water 500 ML IVPB SCH (18:09)
[2017-01-28] MEDS: OLANZapine 10 MG TAB.RAPDIS PO SCH (20:24)
[2017-01-28] MEDS: Loratadine 10 MG TABLET PO SCH (20:25)
[2017-01-29] MEDS: MethylPREDNISolone 40 MG/ML VIAL IVP SCH ×5 (00:40→23:59)
[2017-01-29] MEDS: Ipratropium/Albuterol Neb 3 ML IH SCH ×4 (03:42→22:17)
[2017-01-29 06:22] LABS: BUN/Creatinine Ratio 18 (6-26); Blood Urea Nitrogen 13 mg/dL (8-26); Calcium 9.5 mg/dL (8.6-10.8); Carbon Dioxide 34 mEq/L (19-29); Chloride 96 mEq/L (98-109); Glucose 171 mg/dL (70-99); Osmolality,Calculated 290 (280-300); Sodium 138 mEq/L (136-145); eGFR For African Americans > 60 (> 60); eGFR For Non-African Americans > 60 (> 60)
[2017-01-29 06:23] LABS: Potassium 4.3 mEq/L (3.5-4.5)
[2017-01-29] MEDS: Piperacillin/Tazobactam 3.375 GM/200 ML BAG IVPB SCH ×3 (06:27→21:55)
[2017-01-29] MEDS: Vancomycin 1,750 MG in D5% in Water 500 ML IVPB SCH ×2 (06:28→18:20)
[2017-01-29] MEDS: *HR* OxyCODONE Immed Rel 5 MG TABLET PO PRN ×3 (06:29→21:53)
[2017-01-29] MEDS: Diltiazem CD (24hr) 300 MG CAPSULE PO SCH (09:21)
[2017-01-29] MEDS: Finasteride 5 MG TABLET PO SCH (09:22)
[2017-01-29] MEDS: Metoprolol XL (24 HR) Succ 50 MG TAB.ER.24H PO SCH (09:22)
[2017-01-29] MEDS: *HR* Rivaroxaban 10 MG TABLET PO SCH (09:22)
[2017-01-29] MEDS: *HR* Digoxin 0.125 MG TABLET PO SCH (09:22)
[2017-01-29] MEDS: BuPROPion XL (24 HR) 150 MG TABLET PO SCH (09:22)
[2017-01-29] MEDS: COPPER PO SCH ×2 (09:23→22:32)
[2017-01-29] MEDS: ALPRAZolam 0.5 MG TABLET PO SCH (09:23)
[2017-01-29] MEDS: VIT E PO SCH ×2 (09:23→22:32)
[2017-01-29] MEDS: ZINC PO SCH ×2 (09:23→22:32)
[2017-01-29] MEDS: VIT C PO SCH ×2 (09:23→22:32)
[2017-01-29] MEDS: VIT A PO SCH ×2 (09:23→22:32)
[2017-01-29] MEDS: (Linaclotide [Linzess] 145 MCG) PO SCH (09:23)
[2017-01-29] MEDS: Fluticasone Propionate Nasal 50 MCG/SPRAY BOTTLE NS SCH (09:24)
[2017-01-29] MEDS ORDERED: Furosemide 20 MG/2 ML VIAL IVP ONE (09:36)
[2017-01-29] MEDS: Budesonide/Formoterol 160/4.5 MDI IH SCH ×2 (10:13→22:17)
[2017-01-29] MEDS: Levofloxacin 750 MG/150 ML 750 MG/150 ML BAG IVPB SCH (10:35)
--- NOTE | 2017-01-29 11:03 | Internal Med Progress Note ---
<Cindy Olivas - Last Filed: 01/29/17 11:56> Date of Encounter: 01/29/17 Time of Encounter: 10:50 - Assessment and plan (1) Acute on chronic respiratory failure with hypoxemia Current Visit: Yes Status: Acute Assessment and plan: Patient is on 2 L chronic nasal cannula at [facility]. Has increasing oxygen requirements likely secondary to pneumonia with COPD exacerbation. May also be component of acute CHF exacerbation with evidence of pulmonary vascular congestion and bilateral pleural effusion on chest xray. 04/2015: echo with LVEF 60&, mild LV hypertrophy, mild dilated LA, normal wall motion. 04/2015 nuclear medicine stress test findings consistent with small myocardial infarction with apical inferior wall abnormality and apex with mild tamika- artifact ischemia. Cardiology evalauted in outpatient clinic pre-shoulder replacement, felt was remnant from old TN and did not represent current ischemia. Will give one dose IV lasix 20 mg. Strict I/O's. Continue treatemnt for pneumonia with IV antibiotics and steroids. Wean oxygena s tolerated to baseline requirement of 2L nasal canula. (2) Pneumonia Current Visit: Yes Status: Acute Assessment and plan: Chest x-ray with evidence of left lower lobe patchy developing consolidation Repeat chest xray with cardiomegaly, pulmonary vascular congestion, small bilateral pleural effusions and increase airspace opacity consistent with CHF, can not exclude super imposed pneumonia Treated at [facility] with oral antibiotics and worsening dyspnea and increasing oxygen requirements requiring admission Continue IV antibiotics Levaquin, zosyn, vancomycin (day 3) for healthcare associated pneumonia, will transition to oral antibiotics at [facility] proves continue supplemental oxygen as needed, baseline oxygen requirement is to leaders continue intravenous steroids every 6 hours (day 3). Will plan to transition to oral steroids as soona s clniical picture improves. Given cocnerns of acute CHF exacerbation will be cautious with use of steroids as can worsen CHF Continue duonebs and other inhalers as scheduled. Qualifiers: Pneumonia type: due to other aerobic Gram-negative bacteria Laterality: left Lung location: lower lobe of lung Qualified Code(s): J15.6 - Pneumonia due to other Gram-negative bacteria (3) COPD exacerbation Current Visit: Yes Status: Acute Assessment and plan: Patient has history of COPD with COPD exacerbation likely secondary to healthcare associated pneumonia antibiotics as previously described, steroids as previously described continue supplemental oxygen, patient has baseline requirement of 2 L continue Mucinex (4) A-fib Current Visit: No Status: Chronic Assessment and plan: Chronic. Stable. Rate controlled. Continue home medications Qualifiers: Atrial fibrillation type: chronic Qualified Code(s): I48.2 - Chronic atrial fibrillation (5) CAD (coronary artery disease) Current Visit: No Status: Chronic Assessment and plan: Chronic. Stable. Currently asymptomatic Continue home medications Qualifiers: Coronary Disease-Associated Artery/Lesion type: [place] artery [place] vs. transplanted heart: rincon heart Associated angina: without angina Qualified Code(s): I25.10 - Atherosclerotic heart disease of [place] coronary artery without angina pectoris (6) Hypertension Current Visit: No Status: Chronic Assessment and plan: Chronic. Stable. Blood pressure controlled continue home medications Qualifiers: Hypertension type: essential hypertension Qualified Code(s): I10 - Essential (primary) hypertension (7) Hypothyroid Current Visit: No Status: Chronic Assessment and plan: Chronic. Stable. Continue home Synthroid Qualifiers: Hypothyroidism type: acquired Qualified Code(s): E03.9 - Hypothyroidism, unspecified (8) Stage 1 decubitus ulcer Current Visit: Yes Status: Acute Qualifiers: Pressure ulcer location: buttock Laterality: unspecified laterality Qualified Code(s): L89.301 - Pressure ulcer of unspecified buttock, stage 1 (9) Unstageable decubitus ulcer Current Visit: Yes Status: Acute Qualifiers: Pressure ulcer location: heel Laterality: right Qualified Code(s): L89.610 - Pressure ulcer of right heel, unstageable (10) Unstageable decubitus ulcer Current Visit: Yes Status: Acute Qualifiers: Pressure ulcer location: heel Laterality: left Qualified Code(s): L89.620 - Pressure ulcer of left heel, unstageable (11) Unstageable decubitus ulcer Current Visit: Yes Status: Acute Qualifiers: Pressure ulcer location: knee Laterality: left Qualified Code(s): L89.890 - Pressure ulcer of other site, unstageable - Subjective Interval history: 76-year-old male with history of COPD transferred from extended care facility after feeling treatment for pneumonia and found to be hypoxic to the 70s despite being on 2 to 3 L nasal cannula of supplemental oxygen. He was admitted secondary to oral antibiotic treatment failure and increasing oxygen requirements. Chest xray performed yesterday with evidence of cardiomegaly, pulmonary vascular congestion, small bilateral pleural effusions and increased airspace opacity. Consistent with CHF but can not exclude a superimposed pneumonia. Overnight there were no acute issues. He remains on IV antibiotics. When asked this morning he states that he feels as if he has a pressure in his chest , he also complains of increasing swelling in her lower extremities. He is tolerating a general diet and denies any nausea or vomitting. He has no other concerns at this time. - Constitutional Vitals: Temp Pulse Resp BP Pulse Ox 98.3 F 99 18 139/84 94 01/29/17 07:12 01/29/17 07:12 01/29/17 07:12 01/29/17 07:12 01/29/17 07:12 General appearance: Present: cooperative, pleasant, no acute distress - Head Head exam: Present: atraumatic, normocephalic Additional comments: nasal canula in place - ENT ENT exam: Present: mucous membranes moist - Neck Neck exam general surgery: Present: supple, trachea midline - Respiratory Respiratory exam: Present: decreased breath sounds, wheezes (end expiratory bilaterally ). Absent: respiratory distress, rhonchi, stridor, tachypnea - Cardiovascular Cardiovascular exam: Present: RRR, +S1, +S2. Absent: diastolic murmur, systolic murmur - GI/Abdominal GI/Abdominal exam: Present: distended, normal bowel sounds, soft. Absent: guarding, rebound, tenderness - Extremities Exam Extremities exam: Present: normal capillary refill, pedal edema (+1 pitting edema bilaterally to mid tibia) Internal Medicine: Result - Labs CBC & Chem 7: 01/28/17 03:31 01/29/17 05:30 Labs: BMP 01/28/17 01/29/17 13:59 05:30 Sodium 135 L 138 Potassium 4.6 H 4.3 Chloride 96 L 96 L Carbon Dioxide 30 H 34 H BUN 13 13 Creatinine 0.77 0.71 L Glucose 214 H 171 H Calcium 9.2 9.5 - ABG Interpretation ABG results: PT/INR, D-dimer PT 25.8 Seconds (9.4-12.1) H 01/27/17 14:38 - Impressions Impressions Chest X-Ray 01/28/17 16:42 IMPRESSION: Cardiomegaly with pulmonary vascular congestion and small bilateral pleural effusions with increasing airspace opacity in both lung bases. Findings most compatible with mild congestive heart failure. Possibility of superimposed pneumonia in either lung base cannot be excluded. D/ / Yoni Rosales MD / Yoni Rosales MD Interpreting Provider: Yoni Rosales MD Consult Discharge Plan - Plan Referrals: NONE,PCP [Non-Partnered Physician] - <Abilio Capone - Last Filed: 01/29/17 13:30> Date of Encounter: 01/29/17 - Assessment and plan (1) Acute on chronic respiratory failure with hypoxemia Current Visit: Yes Status: Acute (2) CHF (congestive heart failure) Current Visit: Yes Status: Suspected Assessment and plan: Diurese some today. Echo pending. Qualifiers: Congestive heart failure type: diastolic Congestive heart failure chronicity: acute on chronic Qualified Code(s): I50.33 - Acute on chronic diastolic (congestive) heart failure (3) Pneumonia Current Visit: Yes Status: Acute Qualifiers: Pneumonia type: due to other aerobic Gram-negative bacteria Laterality: left Lung location: lower lobe of lung Qualified Code(s): J15.6 - Pneumonia due to other Gram-negative bacteria (4) COPD exacerbation Current Visit: Yes Status: Acute (5) A-fib Current Visit: No Status: Chronic Qualifiers: Atrial fibrillation type: chronic Qualified Code(s): I48.2 - Chronic atrial fibrillation (6) CAD (coronary artery disease) Current Visit: No Status: Chronic Qualifiers: Coronary Disease-Associated Artery/Lesion type: r[place] artery [place] vs. transplanted heart: rincon heart Associated angina: without angina Qualified Code(s): I25.10 - Atherosclerotic heart disease of r[place] coronary artery without angina pectoris (7) Hypertension Current Visit: No Status: Chronic Qualifiers: Hypertension type: essential hypertension Qualified Code(s): I10 - Essential (primary) hypertension (8) Hypothyroid Current Visit: No Status: Chronic Qualifiers: Hypothyroidism type: acquired Qualified Code(s): E03.9 - Hypothyroidism, unspecified (9) Stage 1 decubitus ulcer Current Visit: Yes Status: Acute Qualifiers: Pressure ulcer location: buttock Laterality: unspecified laterality Qualified Code(s): L89.301 - Pressure ulcer of unspecified buttock, stage 1 (10) Unstageable decubitus ulcer Current Visit: Yes Status: Acute Qualifiers: Pressure ulcer location: heel Laterality: right Qualified Code(s): L89.610 - Pressure ulcer of right heel, unstageable (11) Unstageable decubitus ulcer Current Visit: Yes Status: Acute Qualifiers: Pressure ulcer location: heel Laterality: left Qualified Code(s): L89.620 - Pressure ulcer of left heel, unstageable (12) Unstageable decubitus ulcer Current Visit: Yes Status: Acute Qualifiers: Pressure ulcer location: knee Laterality: left Qualified Code(s): L89.890 - Pressure ulcer of other site, unstageable - Constitutional Vitals: Temp Pulse Resp BP Pulse Ox 97.4 F L 127 18 135/79 91 01/29/17 11:22 01/29/17 11:22 01/29/17 11:22 01/29/17 11:22 01/29/17 11:22 Internal Medicine: Result - Labs CBC & Chem 7: 01/28/17 03:31 01/29/17 05:30 Labs: BMP 01/28/17 01/29/17 13:59 05:30 Sodium 135 L 138 Potassium 4.6 H 4.3 Chloride 96 L 96 L Carbon Dioxide 30 H 34 H BUN 13 13 Creatinine 0.77 0.71 L Glucose 214 H 171 H Calcium 9.2 9.5 - ABG Interpretation ABG results: PT/INR, D-dimer PT 25.8 Seconds (9.4-12.1) H 01/27/17 14:38 - Impressions Impressions Chest X-Ray 01/28/17 16:42 IMPRESSION: Cardiomegaly with pulmonary vascular congestion and small bilateral pleural effusions with increasing airspace opacity in both lung bases. Findings most compatible with mild congestive heart failure. Possibility of superimposed pneumonia in either lung base cannot be excluded. D/ / Yoni Rosales MD / Yoni Rosales MD Interpreting Provider: Yoni Rosales MD - Attending Attestation I examined this patient and my medical decision-making was reviewed with the Resident Physician on 01/29/17. I agree with the documented findings, disposition and treatment plan as described except to the extent set forth below. Mr Choi is currently admitted for acute pneumonia and hypoxia. He now has some evidence of pulmonary edema. He remains moderate to high risk due to potential for worsening respiratory status. Mr Choi feels less congested at this time but is still wheezing. He slept somewhat better. CXR shows evidence of fluid congestion. Still coughing. No fever or chills. Exam Alert. Comfortable Mucus membranes dry Heart irreg Lungs with scattered rhonchi and wheeze. No rales. Abd soft Edema present I/P 1. Hypoxia 2. CHF - echo pending 3. PNA Further diagnoses and plan as above.
[2017-01-29] MEDS: *HR* Metoprolol 5 MG/5 ML VIAL IVP PRN (11:27)
--- NOTE | 2017-01-29 13:27 | Electrocardiograph Report ---
[place] [facility] Test Date: 2017-01-27 Pat Name: Rodney Choi Department: 103 Room: 2A14 Gender: M Advanced Developer: YADIEL : 1940 Requested By: Edouard Hope Order Number: [id number] Reading MD: Amy Kevin DO Measurements Intervals [place] Rate: 93 P: RI: 0 QRS: 15 QRSD: 109 T: 95 QT: 332 QTc: 383 Interpretive Statements ATRIAL FIBRILLATION MINIMAL ST DEPRESSION [0.025+ mV ST DEPRESSION] ABNORMAL QRS-T ANGLE [QRS-T AXIS DIFFERENCE > 60] Electronically Signed On 01-29-2017 13:26:03 EST by Amy Kevin DO
[2017-01-29] MEDS: OLANZapine 10 MG TAB.RAPDIS PO SCH (21:52)
[2017-01-29] MEDS: Loratadine 10 MG TABLET PO SCH (21:53)
[2017-01-30] MEDS: Ipratropium/Albuterol Neb 3 ML IH SCH ×4 (03:37→22:05)
[2017-01-30] MEDS: Vancomycin 1,750 MG in D5% in Water 500 ML IVPB SCH (05:33)
[2017-01-30] MEDS: Piperacillin/Tazobactam 3.375 GM/200 ML BAG IVPB SCH ×3 (05:35→20:49)
[2017-01-30] MEDS: *HR* Metoprolol 5 MG/5 ML VIAL IVP PRN (05:38)
[2017-01-30] MEDS: MethylPREDNISolone 40 MG/ML VIAL IVP SCH ×3 (05:38→20:36)
--- NOTE | 2017-01-30 05:43 | Event Note ---
Date of Encounter: 01/30/17 Time of Encounter: 05:30 Patient's HR was elevated at 110-118. Telemetry to [facility]. According to nurse , patient had been pulling on nasal cannula and oxygen sat had dropped to low 80s. When was then put on a breathing mask and his O2 improved to high 80s. Nurse also noted development to "wet breathing". Patient was gurggling a little when I walked into the room and sounded congested on auscultation. I gave him lopressor and albuterol.
[2017-01-30] MEDS ORDERED: Furosemide 40 MG/4 ML VIAL IVP ONE ×2 (08:03→21:00)
[2017-01-30] MEDS ORDERED: Furosemide 40 MG/4 ML VIAL ONE (08:04)
[2017-01-30 08:11] LABS: ABG Base Excess 10 mEq/L (-2 to 3); ABG HCO3 42 mEq/L (21-27); ABG Oxygen Saturation 85 % (95-98); ABG PCO2 92 mmHg (35-45); ABG PH 7.27 pH Units (7.32-7.45); ABG PO2 62 mmHg (85-104); ABG TCO2 44 mEq/L (20-26)
[2017-01-30] MEDS ORDERED: Aminoglycoside Consult 1 EACH MC ONE (08:38)
--- NOTE | 2017-01-30 08:58 | Internal Med Progress Note ---
<AnastacioPrimitivo mata - Last Filed: 01/30/17 15:31> Date of Encounter: 01/30/17 Time of Encounter: 08:56 - Assessment and plan (1) Acute on chronic respiratory failure with hypoxia and hypercapnia Current Visit: Yes Status: Acute Assessment and plan: patient came in with signs and symptoms of PNA CXR significant for cardiomegaly with pulmonary vascular congestion, pleural effusions, increased airspace opacity. patient comes from [facility] wears 2-3L oxygen at [facility]. ABG showed hypercapnic respiratory failure repeat CXR showed improved pulmonary vascular congestion. Plan: zosyn/levaquin day 4- vancomycin discontinued. IV methylprednisolone decreased to Q12H one dose 40mg IV lasix given for diuresis. BiPAP will give one more dose of lasix at 2100, and re evaluate tomorrow. (2) Acute encephalopathy Current Visit: Yes Status: Acute Assessment and plan: likely secondary to CO2 narcosis. improved at this time, as shown on ABG continue to monitor. continue BiPAP (3) Pneumonia Current Visit: Yes Status: Acute Assessment and plan: plan as above Qualifiers: Pneumonia type: due to other aerobic Gram-negative bacteria Laterality: left Lung location: lower lobe of lung Qualified Code(s): J15.6 - Pneumonia due to other Gram-negative bacteria (4) COPD exacerbation Current Visit: Yes Status: Acute Assessment and plan: likely secondary to pneumonia. plan as above (5) A-fib Current Visit: No Status: Chronic Assessment and plan: currently in Afib RVR, likely exacerbated by fluids/pneumonia. Plan: continue cardizem gtt for now, transition to oral cardizem when appropriate. Qualifiers: Atrial fibrillation type: chronic Qualified Code(s): I48.2 - Chronic atrial fibrillation (6) CAD (coronary artery disease) Current Visit: No Status: Chronic Assessment and plan: continue atorvastatin Qualifiers: Coronary Disease-Associated Artery/Lesion type: tribal artery [place] vs. transplanted heart: tribal heart Associated angina: without angina Qualified Code(s): I25.10 - Atherosclerotic heart disease of tribal coronary artery without angina pectoris (7) Hypertension Current Visit: No Status: Chronic Assessment and plan: continue home meds Qualifiers: Hypertension type: essential hypertension Qualified Code(s): I10 - Essential (primary) hypertension (8) Hypothyroid Current Visit: No Status: Chronic Assessment and plan: continue synthroid Qualifiers: Hypothyroidism type: acquired Qualified Code(s): E03.9 - Hypothyroidism, unspecified (9) Decubitus ulcer Current Visit: Yes Status: Acute Qualifiers: Pressure ulcer location: foot, unspecified location Pressure ulcer stage: unspecified pressure ulcer stage Laterality: unspecified laterality Qualified Code(s): L89.899 - Pressure ulcer of other site, unspecified stage (10) DVT prophylaxis Current Visit: No Status: Acute Assessment and plan: Xarelto - Subjective Interval history: 76M evaluated at bedside. patient was desating in 70s this morning upon examination. he was pulling off his high flow mask, was confused, and would not respond to questions. - Constitutional Vitals: Temp Pulse Resp BP Pulse Ox 98.5 F 118 36 127/72 94 01/30/17 07:08 01/30/17 07:08 01/30/17 08:37 01/30/17 07:08 01/30/17 08:37 General appearance: Present: cooperative, mild distress. Absent: A&O X 3, answers questions appropriately - Head Head exam: Present: atraumatic, normocephalic - Neck Neck exam general surgery: Present: supple, trachea midline - Respiratory Respiratory exam: Present: rales, respiratory distress, tachypnea - Cardiovascular Cardiovascular exam: Present: irregular rhythm, tachycardia - GI/Abdominal GI/Abdominal exam: Present: diminished bowel sounds, distended, firm. Absent: tenderness - Extremities Exam Additional comments: +1 pitting edema bilaterally. bilateral lower extremity heels wrapped. sore present on left knee. Internal Medicine: Result - Labs CBC & Chem 7: 01/28/17 03:31 01/29/17 05:30 - ABG Interpretation ABG results: ABG ABG pH 7.27 pH Units (7.32-7.45) L 01/30/17 08:06 ABG pCO2 92 mmHg (35-45) H* 01/30/17 08:06 ABG pO2 62 mmHg (85-104) L 01/30/17 08:06 ABG O2 Saturation 85 % (95-98) L 01/30/17 08:06 PT/INR, D-dimer PT 25.8 Seconds (9.4-12.1) H 01/27/17 14:38 - Impressions Impressions Echocardiogram 01/28/17 16:43 Impressions: LVEF 60%. Indeterminate diastolic function. Mildly dilated left atrium. IVC plethora is noted Unable to estimate RVSP due to lack of TR jet. Left Ventricular Wall Motion: Rest Echo Findings All wall segments showed normal motion. Findings: Study Quality * Technically adequate exam. ECG Findings * Atrial fibrillation. Left Ventricle * LVEF 60%. * Indeterminate diastolic function. Right Ventricle * Normal right ventricular structure and function. Left Atrium * Mildly dilated left atrium. Right Atrium * Normal right atrial size. Interatrial Septum * No evidence of PFO by color Doppler. Aortic Valve * Aortic valve not well visualized. * No aortic regurgitation. * No aortic stenosis. Mitral Valve * Mild mitral regurgitation. Pulmonic Valve * Pulmonic valve not well visualized. Aorta * Normally sized aortic root. Pericardium * The pericardium appears normal. IVC * The IVC is dilated. * IVC plethora is noted Tricuspid Valve * Unable to estimate RVSP due to lack of TR jet. Consult Discharge Plan - Plan Referrals: NONE,PCP [Non-Partnered Physician] - <Abilio Capone - Last Filed: 01/30/17 16:11> Date of Encounter: 01/30/17 - Assessment and plan (1) Acute respiratory failure with hypoxia and hypercarbia Current Visit: Yes Status: Acute (2) Acute on chronic respiratory failure with hypoxemia Current Visit: Yes Status: Acute (3) CHF (congestive heart failure) Current Visit: Yes Status: Suspected Qualifiers: Congestive heart failure type: diastolic Congestive heart failure chronicity: acute on chronic Qualified Code(s): I50.33 - Acute on chronic diastolic (congestive) heart failure (4) Pneumonia Current Visit: Yes Status: Acute Qualifiers: Pneumonia type: due to other aerobic Gram-negative bacteria Laterality: left Lung location: lower lobe of lung Qualified Code(s): J15.6 - Pneumonia due to other Gram-negative bacteria (5) COPD exacerbation Current Visit: Yes Status: Acute (6) A-fib Current Visit: No Status: Chronic Qualifiers: Atrial fibrillation type: chronic Qualified Code(s): I48.2 - Chronic atrial fibrillation (7) CAD (coronary artery disease) Current Visit: No Status: Chronic Qualifiers: Coronary Disease-Associated Artery/Lesion type: tribal artery [place] vs. transplanted heart: tribal heart Associated angina: without angina Qualified Code(s): I25.10 - Atherosclerotic heart disease of tribal coronary artery without angina pectoris (8) Hypertension Current Visit: No Status: Chronic Qualifiers: Hypertension type: essential hypertension Qualified Code(s): I10 - Essential (primary) hypertension (9) Hypothyroid Current Visit: No Status: Chronic Qualifiers: Hypothyroidism type: acquired Qualified Code(s): E03.9 - Hypothyroidism, unspecified (10) Stage 1 decubitus ulcer Current Visit: Yes Status: Acute Qualifiers: Pressure ulcer location: buttock Laterality: unspecified laterality Qualified Code(s): L89.301 - Pressure ulcer of unspecified buttock, stage 1 (11) Unstageable decubitus ulcer Current Visit: Yes Status: Acute Qualifiers: Pressure ulcer location: heel Laterality: right Qualified Code(s): L89.610 - Pressure ulcer of right heel, unstageable (12) Unstageable decubitus ulcer Current Visit: Yes Status: Acute Qualifiers: Pressure ulcer location: heel Laterality: left Qualified Code(s): L89.620 - Pressure ulcer of left heel, unstageable (13) Unstageable decubitus ulcer Current Visit: Yes Status: Acute Qualifiers: Pressure ulcer location: knee Laterality: left Qualified Code(s): L89.890 - Pressure ulcer of other site, unstageable - Constitutional Vitals: Temp Pulse Resp BP Pulse Ox 98.1 F 114 20 110/85 89 01/30/17 15:41 01/30/17 15:41 01/30/17 15:41 01/30/17 15:41 01/30/17 15:41 Internal Medicine: Result - Labs CBC & Chem 7: 01/28/17 03:31 01/29/17 05:30 - ABG Interpretation ABG results: ABG ABG pH 7.41 pH Units (7.32-7.45) 01/30/17 14:25 ABG pCO2 65 mmHg (35-45) H 01/30/17 14:25 ABG pO2 114 mmHg (85-104) H 01/30/17 14:25 ABG O2 Saturation 98 % (95-98) 01/30/17 14:25 PT/INR, D-dimer PT 25.8 Seconds (9.4-12.1) H 01/27/17 14:38 - Impressions Impressions Chest X-Ray 01/30/17 09:40 IMPRESSION: Pulmonary vascular congestion has improved. Persistent low lung volumes with worsening bibasilar airspace disease. D/ / 01/30/2017 10:28:57 Nadeen Romo MD / [place] Interpreting Provider: Nadeen Romo MD - Attending Attestation I examined this patient and my medical decision-making was reviewed with the Resident Physician on 01/30/17. I agree with the documented findings, disposition and treatment plan as described except to the extent set forth below. Mr Choi is currently admitted for acute resp failure, PNA and CHF. He had issues with worsening respiratory status and rapid a fib this AM requiring transfer to . He remains high risk due to need for new cardizem drip and bipap and potential for worsening respiratory and cardiac status. Mr Choi was very confused and hypercarbic earlier today. He has been on bipap and has improved. pH now normal. He is able to come off bipap. Received lasix and is now on cardizem drip for a fib. No fever or chills. No chest pain. Exam Alert. Comfortable now Mucus membranes dry Heart rapid and irreg Lungs with wheeze and rhonchi bilaterally Abd soft Edema present. I/P 1. Resp failure - hypercarbic 2. rapid a fib- card drip 3. pulmonary edema Further diagnoses and plan as above.
[2017-01-30] MEDS: dilTIAZem HCl 100 MG in D5% in Water 50 ML IVC SCH ×3 (09:01→22:00)
--- NOTE | 2017-01-30 09:18 | Event Note ---
<Primitivo Llanes - Last Filed: 01/30/17 09:12> Date of Encounter: 01/30/17 Time of Encounter: 08:00 At about 0800, page was received that patient was desating. Upon arrival at bedside, he was altered, could not answer questions appropriately, and pulling off his oxygen. Dr. Capone, Dr. Kaplan, and myself present at bedside. Patient had audible rales present at the lung bases, along with lower extremity edema. Telemetry showed Afib, and patient was tachycardic. Cardizem bolus was ordered, along with one time dose of 40mg IV lasix. stat ABG showed CO2 92. Patient was placed on BiPAP. He will be transferred to for closer monitoring. Repeat CXR will be ordered, cardizem gtt will be started. <Abilio Capone - Last Filed: 01/30/17 12:34> Date of Encounter: 01/30/17 I was present at the time and agree with plan of care.
[2017-01-30] MEDS: Diltiazem CD (24hr) 300 MG CAPSULE PO SCH ×2 (09:50→15:56)
[2017-01-30] MEDS: Fluticasone Propionate Nasal 50 MCG/SPRAY BOTTLE NS SCH (09:50)
[2017-01-30] MEDS: Metoprolol XL (24 HR) Succ 50 MG TAB.ER.24H PO SCH ×2 (09:51→15:57)
[2017-01-30] MEDS: *HR* Digoxin 0.125 MG TABLET PO SCH ×2 (09:51→15:56)
[2017-01-30] MEDS: Finasteride 5 MG TABLET PO SCH (09:51)
[2017-01-30] MEDS: ALPRAZolam 0.5 MG TABLET PO SCH (09:52)
[2017-01-30] MEDS: BuPROPion XL (24 HR) 150 MG TABLET PO SCH ×2 (09:52→15:57)
[2017-01-30] MEDS: *HR* Rivaroxaban 10 MG TABLET PO SCH ×2 (09:52→15:57)
[2017-01-30] MEDS: Budesonide/Formoterol 160/4.5 MDI IH SCH ×2 (10:08→22:05)
[2017-01-30] MEDS: Levofloxacin 750 MG/150 ML 750 MG/150 ML BAG IVPB SCH (10:14)
[2017-01-30] MEDS ORDERED: 0.9 % Sodium Chloride 500 ML ONE (11:42)
[2017-01-30 14:32] LABS: ABG Base Excess 13 mEq/L (-2 to 3); ABG HCO3 41 mEq/L (21-27); ABG Oxygen Saturation 98 % (95-98); ABG PCO2 65 mmHg (35-45); ABG PH 7.41 pH Units (7.32-7.45); ABG PO2 114 mmHg (85-104); ABG TCO2 43 mEq/L (20-26); Blood Gas Modality BIVENT; Blood Gas PEEP 2 cm H2O; Blood Gas Pressure Support 14 cm H2O; Blood Gas Respiration Rate 30
--- NOTE | 2017-01-30 15:58 | Electrocardiograph Report ---
[place] [id number] Test Date: 2017-01-30 Pat Name: Rodney Choi Department: 112 Room: 2N06 Gender: M Customer Relations Specialist: POPPY : [id number] Requested By: Primitivo Llanes Order Number: [id number] Reading MD: Yony Paul Measurements Intervals [place] Rate: 122 P: AL: 0 QRS: -1 QRSD: 107 T: 120 QT: 288 QTc: 360 Interpretive Statements ATRIAL FIBRILLATION WITH RAPID VENTRICULAR RESPONSE INFERIOR MYOCARDIAL INFARCTION, PROBABLY OLD Electronically Signed On 01-30-2017 15:56:46 EST by Yony Paul
[2017-01-30] MEDS: ALPRAZolam 0.5 MG TABLET PO PRN (18:15)
[2017-01-30] MEDS: Loratadine 10 MG TABLET PO SCH (20:35)
[2017-01-30] MEDS: OLANZapine 10 MG TAB.RAPDIS PO SCH (20:35)
[2017-01-30] MEDS: *HR* Morphine 2 MG/ML SYRINGE IVP PRN (23:51)
[2017-01-31] MEDS: Ipratropium/Albuterol Neb 3 ML IH SCH ×4 (03:32→22:15)
[2017-01-31] MEDS: Piperacillin/Tazobactam 3.375 GM/200 ML BAG IVPB SCH ×3 (06:05→21:35)
[2017-01-31 06:50] LABS: Basophils % 0.1 %; Hematocrit 42.5 % (37.5-50.1); Hemoglobin 14.5 g/dL (12.9-16.9); Immature Granulocytes % 0.4 % (0-4); Lymphocytes # 0.6 K/mcL (0.6-4.6); Lymphocytes % 5.8 %; Mean Corpuscular HGB Conc 34.1 g/dL (31.6-35.5); Mean Corpuscular Hemoglobin 31.5 pg (28.0-33.3); Mean Corpuscular Volume 92.2 fL (83.0-100.0); Mean Platelet Volume 9.1 fL (9.4-12.4); Monocytes # 0.7 K/mcL (0.0-1.3); Monocytes % 7.3 %; Neutrophils # 8.3 K/mcL (1.6-8.9); Platelet Count 255 K/mcL (140-400); Red Blood Count 4.61 M/mcL (4.19-5.50); Segmented Neutrophils % 86.4 %
[2017-01-31 06:56] LABS: BUN/Creatinine Ratio 30 (6-26); Blood Urea Nitrogen 19 mg/dL (8-26); Calcium 9.7 mg/dL (8.6-10.8); Carbon Dioxide 39 mEq/L (19-29); Chloride 92 mEq/L (98-109); Glucose 210 mg/dL (70-99); Osmolality,Calculated 296 (280-300); Sodium 139 mEq/L (136-145); eGFR For African Americans > 60 (> 60); eGFR For Non-African Americans > 60 (> 60)
[2017-01-31 06:57] LABS: Potassium 3.2 mEq/L (3.5-4.5)
[2017-01-31] MEDS: Finasteride 5 MG TABLET PO SCH (08:45)
[2017-01-31] MEDS: *HR* Digoxin 0.125 MG TABLET PO SCH (08:45)
[2017-01-31] MEDS: Metoprolol XL (24 HR) Succ 50 MG TAB.ER.24H PO SCH (08:46)
[2017-01-31] MEDS: Diltiazem CD (24hr) 300 MG CAPSULE PO SCH (08:46)
[2017-01-31] MEDS: MethylPREDNISolone 40 MG/ML VIAL IVP SCH (08:46)
[2017-01-31] MEDS: Levofloxacin 750 MG/150 ML 750 MG/150 ML BAG IVPB SCH (08:46)
[2017-01-31] MEDS: *HR* Rivaroxaban 10 MG TABLET PO SCH (08:46)
[2017-01-31] MEDS: BuPROPion XL (24 HR) 150 MG TABLET PO SCH (08:46)
[2017-01-31] MEDS: ALPRAZolam 0.5 MG TABLET PO SCH (08:47)
[2017-01-31] MEDS: Fluticasone Propionate Nasal 50 MCG/SPRAY BOTTLE NS SCH (08:48)
[2017-01-31] MEDS: Budesonide/Formoterol 160/4.5 MDI IH SCH ×3 (10:44→22:16)
[2017-01-31] MEDS ORDERED: Potassium Chloride Elixir 20 MEQ/15 ML UDC PO ONE (13:21)
--- NOTE | 2017-01-31 13:35 | Internal Med Progress Note ---
<Primitivo Llanes - Last Filed: 01/31/17 13:32> Date of Encounter: 01/31/17 Time of Encounter: 13:33 - Assessment and plan (1) Acute on chronic respiratory failure with hypoxia and hypercapnia Current Visit: Yes Status: Acute Assessment and plan: patient came in with signs and symptoms of PNA CXR significant for cardiomegaly with pulmonary vascular congestion, pleural effusions, increased airspace opacity. patient comes from [facility]L [facility]. ABG showed hypercapnic respiratory failure-improved repeat CXR showed improved pulmonary vascular congestion. Plan: zosyn/levaquin day 5 methylprednisolone discontinued. started oral prednisone. continue BiPAP if patient is able to be weaned off cardizem gtt, likely discharge tomorrow. PT/OT will do overnight BiPAP qualification (2) Acute encephalopathy Current Visit: Yes Status: Resolved Assessment and plan: secondary to CO2 narcosis improved. continue to monitor. (3) Pneumonia Current Visit: Yes Status: Acute Assessment and plan: plan as above Qualifiers: Pneumonia type: due to other aerobic Gram-negative bacteria Laterality: left Lung location: lower lobe of lung Qualified Code(s): J15.6 - Pneumonia due to other Gram-negative bacteria (4) COPD exacerbation Current Visit: Yes Status: Acute Assessment and plan: likely secondary to pneumonia. plan as above (5) A-fib Current Visit: No Status: Chronic Assessment and plan: in Afib Plan: wean off cardizem gtt today and transition to oral meds Qualifiers: Atrial fibrillation type: chronic Qualified Code(s): I48.2 - Chronic atrial fibrillation (6) CAD (coronary artery disease) Current Visit: No Status: Chronic Assessment and plan: continue atorvastatin Qualifiers: Coronary Disease-Associated Artery/Lesion type: [place] artery [place] vs. transplanted heart: [place] heart Associated angina: without angina Qualified Code(s): I25.10 - Atherosclerotic heart disease of [place] coronary artery without angina pectoris (7) Hypertension Current Visit: No Status: Chronic Assessment and plan: continue home meds Qualifiers: Hypertension type: essential hypertension Qualified Code(s): I10 - Essential (primary) hypertension (8) Hypothyroid Current Visit: No Status: Chronic Assessment and plan: continue synthroid Qualifiers: Hypothyroidism type: acquired Qualified Code(s): E03.9 - Hypothyroidism, unspecified (9) Decubitus ulcer Current Visit: Yes Status: Acute Qualifiers: Pressure ulcer location: foot, unspecified location Pressure ulcer stage: unspecified pressure ulcer stage Laterality: unspecified laterality Qualified Code(s): L89.899 - Pressure ulcer of other site, unspecified stage (10) DVT prophylaxis Current Visit: No Status: Acute Assessment and plan: Xarelto - Subjective Interval history: 76M evaluated at bedside. patient was laying in bed wearing BiPAP. he denies nausea, vomiting, diarrhea ,fever, chills, chest pain, shortness of breath. - Constitutional Vitals: Temp Pulse Resp BP Pulse Ox 97.8 F 87 25 127/84 93 01/31/17 11:33 01/31/17 11:33 01/31/17 11:33 01/31/17 11:33 01/31/17 11:33 General appearance: Present: cooperative, mild distress, pleasant, no acute distress, answers questions appropriately. Absent: A&O X 3 - Head Head exam: Present: atraumatic, normocephalic - Neck Neck exam general surgery: Present: supple, trachea midline - Respiratory Respiratory exam: Present: decreased breath sounds. Absent: wheezes - Cardiovascular Cardiovascular exam: Present: irregular rhythm, +S1, +S2 - GI/Abdominal GI/Abdominal exam: Present: distended, normal bowel sounds, soft. Absent: tenderness - Extremities Exam Additional comments: +2 pitting edema on right lower extremity - Neurological Exam Neurological exam: Present: alert, oriented X3, no focal deficits - Psychiatric Psychiatric exam: Present: normal affect, normal mood - Skin Skin exam: Present: intact Internal Medicine: Result - Labs CBC & Chem 7: 01/31/17 06:33 01/31/17 06:33 Labs: Short CBC 01/31/17 Range/Units 06:33 WBC 9.6 D (4.3-11.1) K/mcL Hgb 14.5 (12.9-16.9) g/dL Hct 42.5 (37.5-50.1) % Plt Count 255 (140-400) K/mcL Neutrophils # 8.3 (1.6-8.9) K/mcL BMP 01/31/17 06:33 Sodium 139 Potassium 3.2 L D Chloride 92 L Carbon Dioxide 39 H BUN 19 Creatinine 0.63 L Glucose 210 H Calcium 9.7 - ABG Interpretation ABG results: ABG ABG pH 7.41 pH Units (7.32-7.45) 01/30/17 14:25 ABG pCO2 65 mmHg (35-45) H 01/30/17 14:25 ABG pO2 114 mmHg (85-104) H 01/30/17 14:25 ABG O2 Saturation 98 % (95-98) 01/30/17 14:25 PT/INR, D-dimer PT 25.8 Seconds (9.4-12.1) H 01/27/17 14:38 - Impressions Impressions Chest X-Ray 01/30/17 09:40 IMPRESSION: Pulmonary vascular congestion has improved. Persistent low lung volumes with worsening bibasilar airspace disease. D/ / 01/30/2017 10:28:57 Nadeen Romo MD / [place] Interpreting Provider: Nadeen Romo MD Consult Discharge Plan - Plan Referrals: NONE,PCP [Non-Partnered Physician] - <Abilio Capone - Last Filed: 01/31/17 17:59> Date of Encounter: 01/31/17 - Assessment and plan (1) Acute respiratory failure with hypoxia and hypercarbia Current Visit: Yes Status: Acute (2) Acute on chronic respiratory failure with hypoxemia Current Visit: Yes Status: Acute (3) CHF (congestive heart failure) Current Visit: Yes Status: Suspected Qualifiers: Congestive heart failure type: diastolic Congestive heart failure chronicity: acute on chronic Qualified Code(s): I50.33 - Acute on chronic diastolic (congestive) heart failure (4) Pneumonia Current Visit: Yes Status: Acute Qualifiers: Pneumonia type: due to other aerobic Gram-negative bacteria Laterality: left Lung location: lower lobe of lung Qualified Code(s): J15.6 - Pneumonia due to other Gram-negative bacteria (5) COPD exacerbation Current Visit: Yes Status: Acute (6) A-fib Current Visit: No Status: Chronic Qualifiers: Atrial fibrillation type: chronic Qualified Code(s): I48.2 - Chronic atrial fibrillation (7) CAD (coronary artery disease) Current Visit: No Status: Chronic Qualifiers: Coronary Disease-Associated Artery/Lesion type: [place] artery [place] vs. transplanted heart: [place] heart Associated angina: without angina Qualified Code(s): I25.10 - Atherosclerotic heart disease of [place] coronary artery without angina pectoris (8) Hypertension Current Visit: No Status: Chronic Qualifiers: Hypertension type: essential hypertension Qualified Code(s): I10 - Essential (primary) hypertension (9) Hypothyroid Current Visit: No Status: Chronic Qualifiers: Hypothyroidism type: acquired Qualified Code(s): E03.9 - Hypothyroidism, unspecified (10) Stage 1 decubitus ulcer Current Visit: Yes Status: Acute Qualifiers: Pressure ulcer location: buttock Laterality: unspecified laterality Qualified Code(s): L89.301 - Pressure ulcer of unspecified buttock, stage 1 (11) Unstageable decubitus ulcer Current Visit: Yes Status: Acute Qualifiers: Pressure ulcer location: heel Laterality: right Qualified Code(s): L89.610 - Pressure ulcer of right heel, unstageable (12) Unstageable decubitus ulcer Current Visit: Yes Status: Acute Qualifiers: Pressure ulcer location: heel Laterality: left Qualified Code(s): L89.620 - Pressure ulcer of left heel, unstageable (13) Unstageable decubitus ulcer Current Visit: Yes Status: Acute Qualifiers: Pressure ulcer location: knee Laterality: left Qualified Code(s): L89.890 - Pressure ulcer of other site, unstageable - Constitutional Vitals: Temp Pulse Resp BP Pulse Ox 97.8 F 102 35 135/79 93 01/31/17 16:26 01/31/17 16:26 01/31/17 16:26 01/31/17 16:26 01/31/17 16:26 Internal Medicine: Result - Labs CBC & Chem 7: 01/31/17 06:33 01/31/17 06:33 Labs: Short CBC 01/31/17 Range/Units 06:33 WBC 9.6 D (4.3-11.1) K/mcL Hgb 14.5 (12.9-16.9) g/dL Hct 42.5 (37.5-50.1) % Plt Count 255 (140-400) K/mcL Neutrophils # 8.3 (1.6-8.9) K/mcL BMP 01/31/17 06:33 Sodium 139 Potassium 3.2 L D Chloride 92 L Carbon Dioxide 39 H BUN 19 Creatinine 0.63 L Glucose 210 H Calcium 9.7 - ABG Interpretation ABG results: ABG ABG pH 7.41 pH Units (7.32-7.45) 01/30/17 14:25 ABG pCO2 65 mmHg (35-45) H 01/30/17 14:25 ABG pO2 114 mmHg (85-104) H 01/30/17 14:25 ABG O2 Saturation 98 % (95-98) 01/30/17 14:25 PT/INR, D-dimer PT 25.8 Seconds (9.4-12.1) H 01/27/17 14:38 - Impressions Impressions Chest X-Ray 01/30/17 09:40 IMPRESSION: Pulmonary vascular congestion has improved. Persistent low lung volumes with worsening bibasilar airspace disease. D/ / 01/30/2017 10:28:57 Nadeen Romo MD / [place] Interpreting Provider: Nadeen Romo MD - Attending Attestation I examined this patient and my medical decision-making was reviewed with the Resident Physician on 01/31/17. I agree with the documented findings, disposition and treatment plan as described except to the extent set forth below. Mr Choi is currently admitted for acute resp failure related to pneumonia and CHF. He remains moderate to high risk due to potential for worsening respiratory status. Mr Choi is still having difficulty breathing. He feels better when wearing the bipap. He has a lot of anxiety without it. He requires high flow oxygen when not on bipap. He is still fairly congested as well. No fever or chills. Less cough today. Exam Alert. Comfortable at this time Mucus membranes dry Heart irreg - not tachy Lungs with scattered rhonchi Abd soft I/P 1. Hypoxic resp failure 2. Will do bipap qualification if needed 3. CHF - diuresis overnight. Further diagnoses and plan as above.
[2017-01-31] MEDS: dilTIAZem HCl 100 MG in D5% in Water 50 ML IVC SCH (14:42)
[2017-01-31] MEDS ORDERED: D5% in Water 1,000 ML IVC PRN (15:22)
[2017-01-31] MEDS ORDERED: Dextrose Gel 15 GM PO PRN ×2 (15:22)
[2017-01-31] MEDS ORDERED: *HR* Dextrose 50 % in Water (Syg) 50 ML SYRINGE IVP PRN (15:22)
[2017-01-31] MEDS: Furosemide 40 MG/4 ML VIAL IVP SCH ×2 (17:27→22:54)
[2017-01-31] MEDS: Insulin LISPRO 300 UNITS/3 ML VIAL SQ SCH ×2 (17:28→21:35)
[2017-01-31] MEDS ORDERED: 0.9 % Sodium Chloride 500 ML ONE (19:01)
[2017-01-31] MEDS: Loratadine 10 MG TABLET PO SCH (21:34)
[2017-01-31] MEDS: OLANZapine 10 MG TAB.RAPDIS PO SCH (21:34)
[2017-02-01] MEDS: ALPRAZolam 0.5 MG TABLET PO PRN ×2 (00:24→12:38)
[2017-02-01] MEDS: dilTIAZem HCl 100 MG in D5% in Water 50 ML IVC SCH ×4 (01:05→20:27)
[2017-02-01] MEDS: Ipratropium/Albuterol Neb 3 ML IH SCH ×4 (04:31→21:06)
[2017-02-01] MEDS: *HR* Morphine 2 MG/ML SYRINGE IVP PRN (04:32)
[2017-02-01] MEDS: Piperacillin/Tazobactam 3.375 GM/200 ML BAG IVPB SCH ×2 (04:34→12:39)
[2017-02-01 06:32] LABS: BUN/Creatinine Ratio 29 (6-26); Blood Urea Nitrogen 18 mg/dL (8-26); Calcium 9.2 mg/dL (8.6-10.8); Chloride 88 mEq/L (98-109); Glucose 184 mg/dL (70-99); Magnesium 1.7 mg/dL (1.6-2.6); Osmolality,Calculated 293 (280-300); Potassium 3.1 mEq/L (3.5-4.5); Sodium 138 mEq/L (136-145); eGFR For African Americans > 60 (> 60); eGFR For Non-African Americans > 60 (> 60)
[2017-02-01 06:38] LABS: Carbon Dioxide 41 mEq/L (19-29)
[2017-02-01] MEDS: ALPRAZolam 0.5 MG TABLET PO SCH (08:06)
[2017-02-01] MEDS: Diltiazem CD (24hr) 300 MG CAPSULE PO SCH (08:07)
[2017-02-01] MEDS: Finasteride 5 MG TABLET PO SCH (08:07)
[2017-02-01] MEDS: *HR* Digoxin 0.125 MG TABLET PO SCH (08:07)
[2017-02-01] MEDS: BuPROPion XL (24 HR) 150 MG TABLET PO SCH (08:07)
[2017-02-01] MEDS: predniSONE 20 MG TABLET PO SCH (08:07)
[2017-02-01] MEDS: Metoprolol XL (24 HR) Succ 50 MG TAB.ER.24H PO SCH ×2 (08:07→20:31)
[2017-02-01] MEDS: Levofloxacin 750 MG/150 ML 750 MG/150 ML BAG IVPB SCH (08:07)
[2017-02-01] MEDS: *HR* Rivaroxaban 10 MG TABLET PO SCH (08:07)
[2017-02-01] MEDS: Furosemide 40 MG/4 ML VIAL IVP SCH (08:08)
[2017-02-01] MEDS: Fluticasone Propionate Nasal 50 MCG/SPRAY BOTTLE NS SCH (08:08)
[2017-02-01] MEDS: Insulin LISPRO 300 UNITS/3 ML VIAL SQ SCH ×4 (08:14→20:32)
[2017-02-01] MEDS: Budesonide/Formoterol 160/4.5 MDI IH SCH ×2 (10:37→21:12)
--- NOTE | 2017-02-01 11:06 | Cardiology Consult Note ---
Date of Encounter: 02/01/17 Time of Encounter: 11:00 Assessment and Plan (1) A-fib Current Visit: No Status: Acute Permanent Atrial Fibrillation, currently in RVR likely secondary to respiratory status Patient has long-standing history of Afib, has progressed to Permanent Nuc stress 05/05 showed normal LVEF, small apical inferior [place] Echo 01/29/17 shows LVEF 60%, Mild LA dilatation, IVC Plethora Patient remains on BiPAP, currently mildly distressed with coarse lung sounds Currently taking 300mg Cardizem CD PO + 20mg/hr drip Recommendations: Continue to focus on respiratory status, which likely plays a role in RVR Afib is in permanent stage, currently on Xarelto for anticoagulation Continue Digoxin and Cardizem Drip, Stop PO Cardizem. Increase Toprol XL to 50mg BID We will give one time dose of 5mg Lopressor Will continue to follow, further recs to come. Qualifiers: Atrial fibrillation type: permanent Qualified Code(s): I48.2 - Chronic atrial fibrillation Discussion w patient/family: The assessment and plan as outlined above was discussed with the patient and/or family members who expressed understanding and agreement. All questions were answered. Thank you for involving us in the care of your patient. Please call with any questions. History of Present Illness Consult date: 02/01/17 Requesting physician: Primitivo Llanes Consult reason: Afib RVR Chief complaint: Afib RVR History of present illness: Mr. Choi is a 76 year old male with history of COPD, CAD s/p stenting, and permanent AFib who presented to the ED from [facility] due to hypoxia with cough for a few days. Apparently he had been desaturating to the 70s despite his typical 2 -3L O2 use. He apparently has long standing issues with hypoxia and deconditioning, as well as generalized weakness. He denied fevers, chills, sweats at that time, but was apparently mildly altered. Over the course of his stay, the patient has remained acutely dyspneic, and has required use of BiPAP to maintain proper O2 Saturation thus far. He is being treated for pneumonia and flash pulmonary edema secondary to CHF. Cardiology was consulted due to Afib RVR whi is not controlled on cardizem drip + current meds. Past Med Surg Social Fam HX - Past Medical History Medical history: atrial fibrillation, CHF, COPD, hypertension, thyroid disease, other Psychiatric history: anxiety, depression - Past Surgical History Surgical History: knee replacement, other - Social History Smoking Status: Never smoker Smokeless Tobacco Status: No Alcohol use: none Drug use: none - Family History Mother Living Status: Hx Family Cardiac Disorders: Yes Father Living Status: Hx Family Cardiac Disorders: Yes (Heart disease) Hx Family Cancer: Yes Hx Family GI Disorders: No Hx Family Genitourinary Disorders: No Hx Family Endocrine Disorder: No Hx Family Musculoskeletal Disorders: No Hx Family Neuromuscular Disorders: No Hx Family Neurologic Disorders: No Hx Family HEENT Disorders: No Hx Family Autoimmune Disorders: No Hx Family Reproductive Disorders: No Hx Family Psychosocial Disorders: No Hx Family Medical Disorders: No Medications and Allergies ALPRAZolam [Xanax 0.5 MG Tablet] 0.5 mg PO Q8H PRN 05/25/15 [History] Acetaminophen [Tylenol] 325 mg PO Q4H PRN 05/25/15 [History] Benzonatate [Tessalon] 100 mg PO TID PRN 05/25/15 [History] Bethanechol [Urecholine] 25 mg PO QID 05/25/15 [History] BuPROPion XL (24 HR) [Wellbutrin Xl] 300 mg PO DAILY 05/25/15 [History] Budesonide/Formoterol 160/4.5 [Symbicort 160/4.5] 2 puff IH BIDR 05/25/15 [ History] Digoxin [Lanoxin] 0.125 mg PO DAILY 05/25/15 [History] DiphenhydraMINE [Benadryl] 12.5 mg PO Q6H PRN 05/25/15 [History] Finasteride [Proscar] 5 mg PO DAILY 05/25/15 [History] Fluticasone Propionate Nasal [Flonase] 50 mcg NS DAILY 05/25/15 [History] Hydrocortisone [Proctozone-Hc] 1 appl TP AD PRN 05/25/15 [History] Levothyroxine [Synthroid] 75 mcg PO DAILY 05/25/15 [History] Loratadine [Claritin] 10 mg PO HS 05/25/15 [History] Melatonin [Melatin] 6 mg PO HS PRN 05/25/15 [History] Metoprolol XL (24 HR) Succ [Toprol Xl] 50 mg PO DAILY 05/25/15 [History] OLANZapine [Zyprexa] 20 mg PO HS 05/25/15 [History] Polyethylene Glycol 3350 [MiraLAX] 17 gm PO HS 05/25/15 [History] Potassium Chloride 40 meq PO TID 05/25/15 [History] Pravastatin Sodium [Pravachol] 40 mg PO HS 05/25/15 [History] Psyllium Husk [Metamucil] 660 gm PO DAILY PRN 05/25/15 [History] Rivaroxaban [Xarelto] 20 mg PO DAILY 05/25/15 [History] Tamsulosin [Flomax] 0.4 mg PO HS 05/25/15 [History] Vit A/Vit C/Vit E/Zinc/Copper [Preservision Areds Tablet] 1 tab PO BID 05/25/15 [History] Diltiazem CD (24hr) [Cardizem CD] 300 mg PO DAILY 12/17/16 [History] Guaifenesin [Mucinex] 600 mg PO Q12H 12/17/16 [History] Linaclotide [Linzess] 145 mcg PO DAILY 12/17/16 [History] Ipratropium/Albuterol Neb [Duoneb] 3 ml IH Q4HR PRN #0 12/24/16 [Rx] OxyCODONE Immed Rel [Roxicodone 5 MG] 5 mg PO Q6HR PRN #20 tablet 12/24/16 [Rx] ALPRAZolam [Xanax 0.5 MG Tablet] 0.5 mg PO DAILY 01/27/17 [History] Cephalexin [Keflex] 500 mg PO TID 01/27/17 [History] Eucalyptus/Menthol [Cough Drops] 2 each MM Q4H PRN 01/27/17 [History] 3 Allergy/AdvReac Type Severity Reaction Status Date / Time amitriptyline Allergy Rash Verified 01/27/17 15:24 divalproex sodium AdvReac Rash Verified 01/27/17 15:24 [From Depakote] Imipramine [From Tofranil] AdvReac Rash Verified 01/27/17 15:24 lamotrigine [From Lamictal] AdvReac Rash Verified 01/27/17 15:24 [place] AdvReac Rash Verified 01/27/17 15:24 Nefazodone [From Serzone] AdvReac See Verified 01/27/17 15:24 Comments ROS unobtainable: due to mental status - Constitutional Constitutional: fatigue, weakness, no anorexia, no fever(s), no night sweats - EENT Eyes: no blurred vision, no loss of vision - Cardiovascular Cardiovascular: orthopnea, rapid heart rate, no chest pain at rest, no chest pain with exertion, no dyspnea at rest, no dyspnea on exertion, no paroxysmal nocturnal dyspnea - Respiratory Respiratory: cough, wheezing - Gastrointestinal Gastrointestinal: no abdominal pain, no constipation - Genitourinary Genitourinary: no dysuria - Neurological Neurological: no abnormal speech, no focal weakness, no syncope Physical Examination Vital Signs, Last 4 Hours Temp Pulse Resp BP Pulse Ox 02/01/17 10:52 40 93 02/01/17 10:42 20 93 02/01/17 07:27 98.1 F 125 20 126/91 94 General: Conversant, Other (Mildly distressed, on BiPAP) HEENT: Atraumatic, Normocephaly, Mucus Membranes Moist Neck: No JVD, Normal carotid pulses Cardiac: Normal S1 and S2, No Murmur, Other (Irregularly irregular) Lungs: Normal Breath Sounds, Other (Coarse breath sounds, difficult to assess due to poor inspiratory effort) Neuro: Alert and responsive, No focal deficits noted Abdomen: Soft, Non-Tender Skin: No rashes noted on visualized skin Musculoskeletal: No Chest Wall Tenderness Extremities: No Clubbing, No Cyanosis, Normal Pulses, Other (2+ pitting edema in LEs b/l) Results 01/31/17 06:33 02/01/17 05:45 Lab Results 02/01/17 05:45 Sodium 138 Potassium 3.1 L Chloride 88 L Carbon Dioxide 41 H* BUN 18 Creatinine 0.63 L Glucose 184 H Calcium 9.2 Magnesium 1.7 - Imaging and Cardiology Chest Xray: report reviewed, image reviewed Stress Test: report reviewed Echo: report reviewed - EKG Interpretation EKG results cardiology: personally reviewed (Atrial fibrillation with RVR) Consult Discharge Plan - Plan Referrals: NONE,PCP [Non-Partnered Physician] -
[2017-02-01] MEDS: Nystatin Cream 15 GM TUBE TP SCH (12:42)
[2017-02-01] MEDS ORDERED: *HR* Metoprolol 5 MG/5 ML VIAL IVP ONE (12:57)
--- NOTE | 2017-02-01 15:05 | Internal Med Progress Note ---
<Primitivo Llanes - Last Filed: 02/01/17 14:58> Date of Encounter: 02/01/17 Time of Encounter: 14:58 - Assessment and plan (1) Acute on chronic respiratory failure with hypoxia and hypercapnia Current Visit: Yes Status: Acute Assessment and plan: patient came in with signs and symptoms of PNA CXR significant for cardiomegaly with pulmonary vascular congestion, pleural effusions, increased airspace opacity. patient comes from retirement wears 2-3L oxygen at [facility]. ABG showed hypercapnic respiratory failure-improved repeat CXR showed improved pulmonary vascular congestion. Plan: continue IV lasix 40mg BID for diuresis, strict I/O levaquin day 5, D/C zosyn today prednisone 40mg day 1, stopped IV steroids continue BiPAP PT/OT will do overnight BiPAP qualification-will do before discharge. (2) Acute encephalopathy Current Visit: Yes Status: Resolved Assessment and plan: secondary to CO2 narcosis improved. continue to monitor. (3) Pneumonia Current Visit: Yes Status: Acute Assessment and plan: plan as above Qualifiers: Pneumonia type: due to other aerobic Gram-negative bacteria Laterality: left Lung location: lower lobe of lung Qualified Code(s): J15.6 - Pneumonia due to other Gram-negative bacteria (4) COPD exacerbation Current Visit: Yes Status: Acute Assessment and plan: likely secondary to pneumonia. plan as above (5) A-fib Current Visit: No Status: Acute Assessment and plan: Echo 02/01/17 showed LVEF 60% ,indeterminate diastolic function, mildly dilated left atrium, IVC plethora noted. Plan: continue cardizem gtt, digoxin appreciate cardio recs-stopped PO cardizem, increase toprol XZLZ to 50 BID, with one time dose of 5mg lopressor. continue Xarelto Qualifiers: Atrial fibrillation type: permanent Qualified Code(s): I48.2 - Chronic atrial fibrillation (6) CAD (coronary artery disease) Current Visit: No Status: Chronic Assessment and plan: continue atorvastatin Qualifiers: Coronary Disease-Associated Artery/Lesion type: [place] artery [place] vs. transplanted heart: [place] heart Associated angina: without angina Qualified Code(s): I25.10 - Atherosclerotic heart disease of [place] coronary artery without angina pectoris (7) Hypertension Current Visit: No Status: Chronic Assessment and plan: continue home meds Qualifiers: Hypertension type: essential hypertension Qualified Code(s): I10 - Essential (primary) hypertension (8) Hypothyroid Current Visit: No Status: Chronic Assessment and plan: continue synthroid Qualifiers: Hypothyroidism type: acquired Qualified Code(s): E03.9 - Hypothyroidism, unspecified (9) Decubitus ulcer Current Visit: Yes Status: Acute Assessment and plan: consult to wound care. Qualifiers: Pressure ulcer location: foot, unspecified location Pressure ulcer stage: unspecified pressure ulcer stage Laterality: unspecified laterality Qualified Code(s): L89.899 - Pressure ulcer of other site, unspecified stage (10) Goals of care, counseling/discussion Current Visit: Yes Status: Acute Assessment and plan: family concern of overall declining health and respiratory status. they requested palliative care discussions Plan: consult to palliative care (11) DVT prophylaxis Current Visit: No Status: Acute Assessment and plan: Xarelto - Subjective Interval history: 76M evaluated at bedside. patient was laying in bed sleeping with BiPAP on. - Constitutional Vitals: Temp Pulse Resp BP Pulse Ox 97.9 F 110 22 133/87 95 02/01/17 11:40 02/01/17 11:40 02/01/17 11:40 02/01/17 11:40 02/01/17 11:40 General appearance: Present: mild distress, no acute distress. Absent: A&O X 3 - Head Head exam: Present: atraumatic, normocephalic - Neck Neck exam general surgery: Present: supple, trachea midline - Respiratory Respiratory exam: Present: rales, wheezes - Cardiovascular Cardiovascular exam: Present: tachycardia - GI/Abdominal GI/Abdominal exam: Present: normal bowel sounds, soft. Absent: distended, tenderness - Extremities Exam Extremities exam: Absent: cyanotic, pedal edema - Neurological Exam Neurological exam: Present: alert, oriented X3, no focal deficits - Psychiatric Psychiatric exam: Present: normal affect, normal mood Internal Medicine: Result - Labs CBC & Chem 7: 01/31/17 06:33 02/01/17 05:45 Labs: BMP 02/01/17 05:45 Sodium 138 Potassium 3.1 L Chloride 88 L Carbon Dioxide 41 H* BUN 18 Creatinine 0.63 L Glucose 184 H Calcium 9.2 - ABG Interpretation ABG results: ABG ABG pH 7.41 pH Units (7.32-7.45) 01/30/17 14:25 ABG pCO2 65 mmHg (35-45) H 01/30/17 14:25 ABG pO2 114 mmHg (85-104) H 01/30/17 14:25 ABG O2 Saturation 98 % (95-98) 01/30/17 14:25 PT/INR, D-dimer PT 25.8 Seconds (9.4-12.1) H 01/27/17 14:38 Consult Discharge Plan - Plan Referrals: NONE,PCP [Non-Partnered Physician] - <Abilio Capone - Last Filed: 02/01/17 18:49> Date of Encounter: 02/01/17 - Assessment and plan (1) Acute respiratory failure with hypoxia and hypercarbia Current Visit: Yes Status: Acute (2) Acute on chronic respiratory failure with hypoxemia Current Visit: Yes Status: Acute (3) CHF (congestive heart failure) Current Visit: Yes Status: Suspected Qualifiers: Congestive heart failure type: diastolic Congestive heart failure chronicity: acute on chronic Qualified Code(s): I50.33 - Acute on chronic diastolic (congestive) heart failure (4) Pneumonia Current Visit: Yes Status: Acute Qualifiers: Pneumonia type: due to other aerobic Gram-negative bacteria Laterality: left Lung location: lower lobe of lung Qualified Code(s): J15.6 - Pneumonia due to other Gram-negative bacteria (5) COPD exacerbation Current Visit: Yes Status: Acute (6) A-fib Current Visit: No Status: Acute Qualifiers: Atrial fibrillation type: permanent Qualified Code(s): I48.2 - Chronic atrial fibrillation (7) CAD (coronary artery disease) Current Visit: No Status: Chronic Qualifiers: Coronary Disease-Associated Artery/Lesion type: [place] artery [place] vs. transplanted heart: [place] heart Associated angina: without angina Qualified Code(s): I25.10 - Atherosclerotic heart disease of [place] coronary artery without angina pectoris (8) Hypertension Current Visit: No Status: Chronic Qualifiers: Hypertension type: essential hypertension Qualified Code(s): I10 - Essential (primary) hypertension (9) Hypothyroid Current Visit: No Status: Chronic Qualifiers: Hypothyroidism type: acquired Qualified Code(s): E03.9 - Hypothyroidism, unspecified (10) Stage 1 decubitus ulcer Current Visit: Yes Status: Acute Qualifiers: Pressure ulcer location: buttock Laterality: unspecified laterality Qualified Code(s): L89.301 - Pressure ulcer of unspecified buttock, stage 1 (11) Unstageable decubitus ulcer Current Visit: Yes Status: Acute Qualifiers: Pressure ulcer location: heel Laterality: right Qualified Code(s): L89.610 - Pressure ulcer of right heel, unstageable (12) Unstageable decubitus ulcer Current Visit: Yes Status: Acute Qualifiers: Pressure ulcer location: heel Laterality: left Qualified Code(s): L89.620 - Pressure ulcer of left heel, unstageable (13) Unstageable decubitus ulcer Current Visit: Yes Status: Acute Qualifiers: Pressure ulcer location: knee Laterality: left Qualified Code(s): L89.890 - Pressure ulcer of other site, unstageable - Constitutional Vitals: Temp Pulse Resp BP Pulse Ox 98.0 F 82 31 108/76 92 02/01/17 15:24 02/01/17 15:24 02/01/17 16:20 02/01/17 15:24 02/01/17 16:20 Internal Medicine: Result - Labs CBC & Chem 7: 01/31/17 06:33 02/01/17 05:45 Labs: BMP 02/01/17 05:45 Sodium 138 Potassium 3.1 L Chloride 88 L Carbon Dioxide 41 H* BUN 18 Creatinine 0.63 L Glucose 184 H Calcium 9.2 - ABG Interpretation ABG results: ABG ABG pH 7.46 pH Units (7.32-7.45) H 02/01/17 16:28 ABG pCO2 68 mmHg (35-45) H 02/01/17 16:28 ABG pO2 61 mmHg (85-104) L 02/01/17 16:28 ABG O2 Saturation 91 % (95-98) L 02/01/17 16:28 PT/INR, D-dimer PT 25.8 Seconds (9.4-12.1) H 01/27/17 14:38 - Impressions Impressions Head CT 02/01/17 16:01 IMPRESSION: 1. No convincing acute intracranial abnormality. 2. Minimal global parenchymal volume loss with chronic microvascular ischemic change. 3. Minimal atherosclerosis. D/ / Moe Raza MD / Moe Raza MD Interpreting Provider: Moe Raza MD - Attending Attestation I examined this patient and my medical decision-making was reviewed with the Resident Physician on 02/01/17. I agree with the documented findings, disposition and treatment plan as described except to the extent set forth below. Mr Choi is currently admitted for acute on chronic resp failure and atrial fibrillation. He remains moderate to high risk due to potential for worsening respiratory and cardiac status. Mr Choi is back on card drip for rapid a fib. He is also needed bipap most of the time. His oxygen saturation fluctuates. No fever or chills. No CP. Exam Alert. Comfortable at this time Arouses to name Mucus membranes dry Heart irreg and tachy Lungs with rhonchi bilaterally Abd soft Edema present I/P 1. Resp failure 2. CHF 3 A fib Further diagnoses and plan as above.
[2017-02-01] MEDS: Potassium Chloride Elixir 20 MEQ/15 ML UDC PO SCH ×2 (15:51→20:31)
[2017-02-01 16:31] LABS: ABG Base Excess 20 mEq/L (-2 to 3); ABG HCO3 49 mEq/L (21-27); ABG Oxygen Saturation 91 % (95-98); ABG PCO2 68 mmHg (35-45); ABG PH 7.46 pH Units (7.32-7.45); ABG PO2 61 mmHg (85-104); ABG TCO2 51 mEq/L (20-26)
[2017-02-01] MEDS ORDERED: 0.9 % Sodium Chloride 1,000 ML IVC SCH (17:00)
[2017-02-01] MEDS ORDERED: ALPRAZolam 0.5 MG TABLET PO SCH (18:05)
[2017-02-01] MEDS: Loratadine 10 MG TABLET PO SCH (20:31)
[2017-02-01] MEDS: OLANZapine 10 MG TAB.RAPDIS PO SCH (20:31)
[2017-02-02] MEDS: ALPRAZolam 0.5 MG TABLET PO PRN (01:29)
[2017-02-02] MEDS: dilTIAZem HCl 100 MG in D5% in Water 50 ML IVC SCH (04:26)
[2017-02-02] MEDS: Ipratropium/Albuterol Neb 3 ML IH SCH ×3 (04:44→16:07)
[2017-02-02] MEDS: *HR* Morphine 2 MG/ML SYRINGE IVP PRN (05:15)
[2017-02-02 05:53] LABS: BUN/Creatinine Ratio 33 (6-26); Blood Urea Nitrogen 21 mg/dL (8-26); Calcium 9.5 mg/dL (8.6-10.8); Chloride 92 mEq/L (98-109); Glucose 184 mg/dL (70-99); Magnesium 2.3 mg/dL (1.6-2.6); Osmolality,Calculated 298 (280-300); Phosphorous 2.4 mg/dL (2.3-4.7); Potassium 3.4 mEq/L (3.5-4.5); Sodium 140 mEq/L (136-145); eGFR For African Americans > 60 (> 60); eGFR For Non-African Americans > 60 (> 60)
[2017-02-02 05:56] LABS: Carbon Dioxide 41 mEq/L (19-29)
[2017-02-02 06:05] LABS: Basophils % 0.1 %; Eosinophils % 0.1 %; Hematocrit 44.4 % (37.5-50.1); Hemoglobin 14.7 g/dL (12.9-16.9); Immature Granulocytes % 0.4 % (0-4); Lymphocytes # 0.8 K/mcL (0.6-4.6); Lymphocytes % 7.3 %; Mean Corpuscular HGB Conc 33.1 g/dL (31.6-35.5); Mean Corpuscular Hemoglobin 30.7 pg (28.0-33.3); Mean Corpuscular Volume 92.7 fL (83.0-100.0); Mean Platelet Volume 9.6 fL (9.4-12.4); Monocytes # 0.8 K/mcL (0.0-1.3); Monocytes % 7.9 %; Neutrophils # 8.9 K/mcL (1.6-8.9); Platelet Count 244 K/mcL (140-400); Red Blood Count 4.79 M/mcL (4.19-5.50); Red Cell Distribution Width 12.9 % (11.5-14.5); Segmented Neutrophils % 84.2 %
[2017-02-02 06:15] LABS: Thyroid Stimulating Hormone 0.707 mcIU/mL (0.350-4.840)
--- NOTE | 2017-02-02 08:09 | Cardiology Progress Note ---
Date of Encounter: 02/02/17 Time of Encounter: 08:20 Assessment and Plan (1) A-fib Current Visit: No Status: Acute Permanent Atrial Fibrillation, currently in RVR likely secondary to respiratory status Patient has long-standing history of Afib, has progressed to Permanent Nuc stress 05/05 showed normal LVEF, small apical inferior [place] Echo 01/29/17 shows LVEF 60%, Mild LA dilatation, IVC Plethora Patient remains on and off BiPAP, currently mildly distressed with coarse lung sounds Still on 10mg Dilt gtt Recommendations: Continue to focus on respiratory status, which likely plays a role in RVR Afib is in permanent stage, currently on Xarelto for anticoagulation We will trasition to PO Cardizem with metoprolol for rate control Cardiology will sign off, please call for further recommendations. Qualifiers: Qualified Code(s): I48.2 - Chronic atrial fibrillation Discussion w patient/family: The assessment and plan as outlined above was discussed with the patient and/or family members who expressed understanding and agreement. All questions were answered. Thank you for involving us in the care of your patient. Please call with any questions. Subjective Principal diagnosis: Afib RVR Interval history: patient was on and off BIPAP throughout the night. HR remained relatively well controlled overnight. Objective Vital Signs, Last 4 Hours Pulse Resp BP Pulse Ox 02/02/17 04:44 33 97 02/02/17 04:35 90 112/78 General: No Apparent Distress, Other (Somnolent but arousable ) HEENT: Atraumatic, Normocephaly, Mucus Membranes Moist Neck: No JVD, Normal carotid pulses Cardiac: Normal S1 and S2, No Murmur, Other (Irregularly irregular) Lungs: Normal Breath Sounds, No Wheeze, Rales, Rhonchi Neuro: Alert and responsive, No focal deficits noted Abdomen: Soft, Non-Tender Skin: No rashes noted on visualized skin Musculoskeletal: No Chest Wall Tenderness Extremities: No Clubbing, No Cyanosis, Normal Pulses, Other (2+ Edema in LEs b/l ) Results 02/02/17 04:59 02/02/17 04:59 Lab Results 02/02/17 02/02/17 04:59 04:59 WBC 10.6 Hgb 14.7 Hct 44.4 Plt Count 244 Sodium 140 Potassium 3.4 L Chloride 92 L Carbon Dioxide 41 H* BUN 21 Creatinine 0.64 L Glucose 184 H Calcium 9.5 Magnesium 2.3 TSH 0.707 Consult Discharge Plan - Plan Referrals: NONE,PCP [Non-Partnered Physician] -
[2017-02-02] MEDS ORDERED: 0.9 % Sodium Chloride 250 ML ONE (08:42)
[2017-02-02] MEDS: predniSONE 20 MG TABLET PO SCH (08:52)
[2017-02-02] MEDS: *HR* Digoxin 0.125 MG TABLET PO SCH (08:52)
[2017-02-02] MEDS: Metoprolol XL (24 HR) Succ 50 MG TAB.ER.24H PO SCH (08:52)
[2017-02-02] MEDS: BuPROPion XL (24 HR) 150 MG TABLET PO SCH (08:52)
[2017-02-02] MEDS: *HR* Rivaroxaban 10 MG TABLET PO SCH (08:52)
[2017-02-02] MEDS: Nystatin Cream 15 GM TUBE TP SCH (08:53)
[2017-02-02] MEDS: Fluticasone Propionate Nasal 50 MCG/SPRAY BOTTLE NS SCH (08:53)
[2017-02-02] MEDS: Finasteride 5 MG TABLET PO SCH (08:53)
[2017-02-02] MEDS: Insulin LISPRO 300 UNITS/3 ML VIAL SQ SCH ×2 (08:53→11:37)
[2017-02-02] MEDS ORDERED: levoFLOXacin 750 MG TABLET PO SCH (09:00)
[2017-02-02] MEDS: Budesonide/Formoterol 160/4.5 MDI IH SCH (10:37)
[2017-02-02] MEDS ORDERED: Diltiazem CD (24hr) 240 MG CAPSULE PO SCH (11:15)
--- NOTE | 2017-02-02 11:25 | Internal Med Progress Note ---
<ShraddhaMilantony - Last Filed: 02/02/17 11:19> Date of Encounter: 02/02/17 Time of Encounter: 11:19 - Assessment and plan (1) Acute on chronic respiratory failure with hypoxia and hypercapnia Current Visit: Yes Status: Acute Assessment and plan: patient came in with signs and symptoms of PNA CXR significant for cardiomegaly with pulmonary vascular congestion, pleural effusions, increased airspace opacity. patient comes from residential wears 2-3L oxygen at longterm. ABG showed hypercapnic respiratory failure-improved repeat CXR showed improved pulmonary vascular congestion. Plan: discontinued lasix due to contraction alkalosis levaquin day 6 prednisone 40mg day 2, continue BiPAP PT/OT will do overnight BiPAP qualification-will do before discharge. consult to palliative care to discuss goals of care. decreased dose of xanax due to mentation. (2) Acute encephalopathy Current Visit: Yes Status: Resolved Assessment and plan: secondary to CO2 narcosis improved. continue to monitor. (3) Pneumonia Current Visit: Yes Status: Acute Assessment and plan: plan as above Qualifiers: Pneumonia type: due to other aerobic Gram-negative bacteria Laterality: left Lung location: lower lobe of lung Qualified Code(s): J15.6 - Pneumonia due to other Gram-negative bacteria (4) COPD exacerbation Current Visit: Yes Status: Acute Assessment and plan: likely secondary to pneumonia. plan as above (5) A-fib Current Visit: No Status: Acute Assessment and plan: Echo 02/01/17 showed LVEF 60% ,indeterminate diastolic function, mildly dilated left atrium, IVC plethora noted. Plan: weaning off cardizem gtt with transition to PO cardizem and metoprolol per cardio continue Xarelto Qualifiers: Atrial fibrillation type: permanent Qualified Code(s): I48.2 - Chronic atrial fibrillation (6) CAD (coronary artery disease) Current Visit: No Status: Chronic Assessment and plan: continue atorvastatin Qualifiers: Coronary Disease-Associated Artery/Lesion type: [place] artery [place] vs. transplanted heart: [place] heart Associated angina: without angina Qualified Code(s): I25.10 - Atherosclerotic heart disease of [place] coronary artery without angina pectoris (7) Hypertension Current Visit: No Status: Chronic Assessment and plan: continue home meds Qualifiers: Hypertension type: essential hypertension Qualified Code(s): I10 - Essential (primary) hypertension (8) Hypothyroid Current Visit: No Status: Chronic Assessment and plan: continue synthroid Qualifiers: Hypothyroidism type: acquired Qualified Code(s): E03.9 - Hypothyroidism, unspecified (9) Decubitus ulcer Current Visit: Yes Status: Acute Assessment and plan: consult to wound care. Qualifiers: Pressure ulcer location: foot, unspecified location Pressure ulcer stage: unspecified pressure ulcer stage Laterality: unspecified laterality Qualified Code(s): L89.899 - Pressure ulcer of other site, unspecified stage (10) Goals of care, counseling/discussion Current Visit: Yes Status: Acute Assessment and plan: family concern of overall declining health and respiratory status. they requested palliative care discussions Plan: consult to palliative care- family meeting today (11) DVT prophylaxis Current Visit: No Status: Acute Assessment and plan: Xarelto - Subjective Interval history: 76M evaluated at bedside. patient was laying in bed sleeping with oxymask on. he is very drowsy today and will respond to questions if stimulated. - Constitutional Vitals: Temp Pulse Resp BP Pulse Ox 98.4 F 82 32 112/80 92 02/02/17 08:12 02/02/17 08:12 02/02/17 10:37 02/02/17 08:12 02/02/17 10:37 General appearance: Present: A&O X 3, pleasant, no acute distress - Head Head exam: Present: atraumatic, normocephalic - Neck Neck exam general surgery: Present: supple, trachea midline - Respiratory Respiratory exam: Present: wheezes - Cardiovascular Cardiovascular exam: Present: RRR, +S1, +S2 - GI/Abdominal GI/Abdominal exam: Present: distended, normal bowel sounds, soft. Absent: tenderness - Extremities Exam Extremities exam: Present: pedal edema (+1 pitting edema on bilateral lower extremities). Absent: cyanotic - Neurological Exam Additional comments: very drowsy - Psychiatric Psychiatric exam: Present: normal affect, normal mood Internal Medicine: Result - Labs CBC & Chem 7: 02/02/17 04:59 02/02/17 04:59 Labs: Short CBC 02/02/17 Range/Units 04:59 WBC 10.6 (4.3-11.1) K/mcL Hgb 14.7 (12.9-16.9) g/dL Hct 44.4 (37.5-50.1) % Plt Count 244 (140-400) K/mcL Neutrophils # 8.9 (1.6-8.9) K/mcL BMP 02/02/17 04:59 Sodium 140 Potassium 3.4 L Chloride 92 L Carbon Dioxide 41 H* BUN 21 Creatinine 0.64 L Glucose 184 H Calcium 9.5 - ABG Interpretation ABG results: ABG ABG pH 7.46 pH Units (7.32-7.45) H 02/01/17 16:28 ABG pCO2 68 mmHg (35-45) H 02/01/17 16:28 ABG pO2 61 mmHg (85-104) L 02/01/17 16:28 ABG O2 Saturation 91 % (95-98) L 02/01/17 16:28 PT/INR, D-dimer PT 25.8 Seconds (9.4-12.1) H 01/27/17 14:38 - Impressions Impressions Head CT 02/01/17 16:01 IMPRESSION: 1. No convincing acute intracranial abnormality. 2. Minimal global parenchymal volume loss with chronic microvascular ischemic change. 3. Minimal atherosclerosis. D/ / Moe Raza MD / Moe Raza MD Interpreting Provider: Moe Raza MD Consult Discharge Plan - Plan Referrals: NONE,PCP [Non-Partnered Physician] - Prescriptions: LORazepam Oral Conc [Ativan Oral Conc] 1 mg PO Q6HR PRN #15 mls PRN Reason: Anxiety Morphine Oral CONC [Roxanol] 1 ml PO Q4H PRN #30 ml PRN Reason: Dyspnea <Abilio Capone - Last Filed: 02/02/17 15:15> Date of Encounter: 02/02/17 - Assessment and plan (1) Acute respiratory failure with hypoxia and hypercarbia Current Visit: Yes Status: Acute (2) CHF (congestive heart failure) Current Visit: Yes Status: Suspected Qualifiers: Congestive heart failure type: diastolic Congestive heart failure chronicity: acute on chronic Qualified Code(s): I50.33 - Acute on chronic diastolic (congestive) heart failure (3) Pneumonia Current Visit: Yes Status: Resolved Qualifiers: Pneumonia type: due to other aerobic Gram-negative bacteria Laterality: left Lung location: lower lobe of lung Qualified Code(s): J15.6 - Pneumonia due to other Gram-negative bacteria (4) COPD exacerbation Current Visit: Yes Status: Resolved (5) A-fib Current Visit: No Status: Chronic Qualifiers: Atrial fibrillation type: permanent Qualified Code(s): I48.2 - Chronic atrial fibrillation (6) CAD (coronary artery disease) Current Visit: No Status: Chronic Qualifiers: Coronary Disease-Associated Artery/Lesion type: [place] artery [place] vs. transplanted heart: [place] heart Associated angina: without angina Qualified Code(s): I25.10 - Atherosclerotic heart disease of [place] coronary artery without angina pectoris (7) Hypertension Current Visit: No Status: Chronic Qualifiers: Hypertension type: essential hypertension Qualified Code(s): I10 - Essential (primary) hypertension (8) Hypothyroid Current Visit: No Status: Chronic Qualifiers: Hypothyroidism type: acquired Qualified Code(s): E03.9 - Hypothyroidism, unspecified (9) Stage 1 decubitus ulcer Current Visit: Yes Status: Chronic Qualifiers: Pressure ulcer location: buttock Laterality: unspecified laterality Qualified Code(s): L89.301 - Pressure ulcer of unspecified buttock, stage 1 (10) Unstageable decubitus ulcer Current Visit: Yes Status: Chronic Qualifiers: Pressure ulcer location: heel Laterality: right Qualified Code(s): L89.610 - Pressure ulcer of right heel, unstageable (11) Unstageable decubitus ulcer Current Visit: Yes Status: Chronic Qualifiers: Pressure ulcer location: heel Laterality: left Qualified Code(s): L89.620 - Pressure ulcer of left heel, unstageable (12) Unstageable decubitus ulcer Current Visit: Yes Status: Chronic Qualifiers: Pressure ulcer location: knee Laterality: left Qualified Code(s): L89.890 - Pressure ulcer of other site, unstageable - Constitutional Vitals: Temp Pulse Resp BP Pulse Ox 98.4 F 93 20 109/79 92 02/02/17 11:22 02/02/17 11:22 02/02/17 11:22 02/02/17 11:22 02/02/17 11:22 Internal Medicine: Result - Labs CBC & Chem 7: 02/02/17 04:59 02/02/17 04:59 Labs: Short CBC 02/02/17 Range/Units 04:59 WBC 10.6 (4.3-11.1) K/mcL Hgb 14.7 (12.9-16.9) g/dL Hct 44.4 (37.5-50.1) % Plt Count 244 (140-400) K/mcL Neutrophils # 8.9 (1.6-8.9) K/mcL BMP 02/02/17 04:59 Sodium 140 Potassium 3.4 L Chloride 92 L Carbon Dioxide 41 H* BUN 21 Creatinine 0.64 L Glucose 184 H Calcium 9.5 - ABG Interpretation ABG results: ABG ABG pH 7.46 pH Units (7.32-7.45) H 02/01/17 16:28 ABG pCO2 68 mmHg (35-45) H 02/01/17 16:28 ABG pO2 61 mmHg (85-104) L 02/01/17 16:28 ABG O2 Saturation 91 % (95-98) L 02/01/17 16:28 PT/INR, D-dimer PT 25.8 Seconds (9.4-12.1) H 01/27/17 14:38 - Impressions Impressions Head CT 02/01/17 16:01 IMPRESSION: 1. No convincing acute intracranial abnormality. 2. Minimal global parenchymal volume loss with chronic microvascular ischemic change. 3. Minimal atherosclerosis. D/ / Moe Rzaa MD / Moe Raza MD Interpreting Provider: Moe Rzaa MD - Attending Attestation I examined this patient and my medical decision-making was reviewed with the Resident Physician on 02/02/17. I agree with the documented findings, disposition and treatment plan as described except to the extent set forth below. Please see discharge summary of this date.
--- NOTE | 2017-02-02 12:36 | Palliative - Consult Note ---
Date of Encounter: 02/02/17 Time of Encounter: 11:45 - Assessment and Plan (1) Goals of care, counseling/discussion Current Visit: Yes Status: Acute Assessment and plan: Conducted meeting with patients TIFFANIEA Davey Lu. He has a long standing history with the patient and has witnessed the patients steady decline over the past several months. The patient resides in an ECF and [facility] [place]. PEG Chanel, Chaplain Mandie attended the meeting. I reviewed the patients current POC and discussed his continued decline despite medications and interventions. I explained that the patient meets hospice criteria with his terminal diagnosis of [id number]. The patient has been in and out of the hospital and still remains in declining health. Davey agrees that patient is end-stage and now desires hospice care. Davey has set -up the patients transition to [place] and he agrees to having [place] [facility]. I educated Davey on the goals of quality of life and transition of code status to comfort care and he agrees. Code status changed to comfort care and [facility] form completed for DNR. [place] [facility] ([facility]) tool the call for referral and will follow-up with the patient and Davey. I confirmed with the patient that he will be [facility]. Prescriptions completed for liquid Roxonol and Ativan. Case discussed with Dr. Capone. (2) COPD exacerbation Current Visit: Yes Status: Acute (3) Pneumonia Current Visit: Yes Status: Acute Qualifiers: Pneumonia type: due to other aerobic Gram-negative bacteria Laterality: left Lung location: lower lobe of lung Qualified Code(s): J15.6 - Pneumonia due to other Gram-negative bacteria (4) Acute on chronic respiratory failure with hypoxemia Current Visit: Yes Status: Acute Palliative-CN HPI - Data of Consult Patient: new to practice Consult date: 02/02/17 Requesting Physician: Abilio Capone DO Primary Care Provider: Govind Stevenson MD - Consult Narrative Palliative Care/Comfort Measures: Palliative care Reason for consult: Goals of Care History of present illness: Mr. Choi is a 76 year old male with hx of COPD and chronic a fib from ECF due to hypoxia and cough. He has recently been diagnosed with pneumonia and placed on antibiotics. He has continued to have cough and dyspnea despite treatment. The patient is day 6 of admission and showing very little response to treatment. Palliative care is consulted per family request to discuss possible transition to comfort care. The patient is sleepy and unable to participate in providing any meaningful information at the time of consult. I called his POA : Davey Lu [phone], [phone] for a meeting. CC: Abilio Capone, DO Past Med Surg Social Fam HX - Past Medical History Source: old records reviewed, obtained from family, nursing notes reviewed Medical history: atrial fibrillation, CHF, COPD, hypertension, thyroid disease, other Psychiatric history: anxiety, depression - Past Surgical History Surgical History: knee replacement, other - Social History Smoking Status: Never smoker Smokeless Tobacco Status: No Alcohol use: none Drug use: none Occupational status: retired Current living situation: [facility] Activity Level: Bed bound Recent Out of Country Travel Within the Last 8 Weeks: No Exposure or Possible Exposure to Illness During Travel: No - Family History Mother Living Status: Hx Family Cardiac Disorders: Yes Father Living Status: Hx Family Cardiac Disorders: Yes (Heart disease) Hx Family Cancer: Yes Hx Family GI Disorders: No Hx Family Genitourinary Disorders: No Hx Family Endocrine Disorder: No Hx Family Musculoskeletal Disorders: No Hx Family Neuromuscular Disorders: No Hx Family Neurologic Disorders: No Hx Family HEENT Disorders: No Hx Family Autoimmune Disorders: No Hx Family Reproductive Disorders: No Hx Family Psychosocial Disorders: No Hx Family Medical Disorders: No Medications and Allergies ALPRAZolam [Xanax 0.5 MG Tablet] 0.5 mg PO Q8H PRN 05/25/15 [History] Acetaminophen [Tylenol] 325 mg PO Q4H PRN 05/25/15 [History] Benzonatate [Tessalon] 100 mg PO TID PRN 05/25/15 [History] Bethanechol [Urecholine] 25 mg PO QID 05/25/15 [History] BuPROPion XL (24 HR) [Wellbutrin Xl] 300 mg PO DAILY 05/25/15 [History] Budesonide/Formoterol 160/4.5 [Symbicort 160/4.5] 2 puff IH BIDR 05/25/15 [ History] Digoxin [Lanoxin] 0.125 mg PO DAILY 05/25/15 [History] DiphenhydraMINE [Benadryl] 12.5 mg PO Q6H PRN 05/25/15 [History] Finasteride [Proscar] 5 mg PO DAILY 05/25/15 [History] Fluticasone Propionate Nasal [Flonase] 50 mcg NS DAILY 05/25/15 [History] Hydrocortisone [Proctozone-Hc] 1 appl TP AD PRN 05/25/15 [History] Levothyroxine [Synthroid] 75 mcg PO DAILY 05/25/15 [History] Loratadine [Claritin] 10 mg PO HS 05/25/15 [History] Melatonin [Melatin] 6 mg PO HS PRN 05/25/15 [History] Metoprolol XL (24 HR) Succ [Toprol Xl] 50 mg PO DAILY 05/25/15 [History] OLANZapine [Zyprexa] 20 mg PO HS 05/25/15 [History] Polyethylene Glycol 3350 [MiraLAX] 17 gm PO HS 05/25/15 [History] Potassium Chloride 40 meq PO TID 05/25/15 [History] Pravastatin Sodium [Pravachol] 40 mg PO HS 05/25/15 [History] Psyllium Husk [Metamucil] 660 gm PO DAILY PRN 05/25/15 [History] Rivaroxaban [Xarelto] 20 mg PO DAILY 05/25/15 [History] Tamsulosin [Flomax] 0.4 mg PO HS 05/25/15 [History] Vit A/Vit C/Vit E/Zinc/Copper [Preservision Areds Tablet] 1 tab PO BID 05/25/15 [History] Diltiazem CD (24hr) [Cardizem CD] 300 mg PO DAILY 12/17/16 [History] Guaifenesin [Mucinex] 600 mg PO Q12H 12/17/16 [History] Linaclotide [Linzess] 145 mcg PO DAILY 12/17/16 [History] Ipratropium/Albuterol Neb [Duoneb] 3 ml IH Q4HR PRN #0 12/24/16 [Rx] OxyCODONE Immed Rel [Roxicodone 5 MG] 5 mg PO Q6HR PRN #20 tablet 12/24/16 [Rx] ALPRAZolam [Xanax 0.5 MG Tablet] 0.5 mg PO DAILY 01/27/17 [History] Cephalexin [Keflex] 500 mg PO TID 01/27/17 [History] Eucalyptus/Menthol [Cough Drops] 2 each MM Q4H PRN 01/27/17 [History] LORazepam Oral Conc [Ativan Oral Conc] 1 mg PO Q6HR PRN #15 mls 02/02/17 [Rx] Morphine Oral CONC [Roxanol] 1 ml PO Q4H PRN #30 ml 02/02/17 [Rx] 3 Allergy/AdvReac Type Severity Reaction Status Date / Time amitriptyline Allergy Rash Verified 01/27/17 15:24 divalproex sodium AdvReac Rash Verified 01/27/17 15:24 [From Depakote] Imipramine [From Tofranil] AdvReac Rash Verified 01/27/17 15:24 lamotrigine [From Lamictal] AdvReac Rash Verified 01/27/17 15:24 [place] AdvReac Rash Verified 01/27/17 15:24 Nefazodone [From Serzone] AdvReac See Verified 01/27/17 15:24 Comments ROS unobtainable: due to mental status (limited: patient denies SOB or pain) - Constitutional Constitutional ROS PAL: fatigue, lethargy - EENT Eyes: requires corrective lenses - Cardiovascular Cardiovascular ROS: irregular heart rhythm - Respiratory Respiratory: dyspnea on exertion, wheezing - Musculoskeletal Musculoskeletal ROS IM: muscle weakness - Neurological Neurological ROS: weakness - Psychiatric Psychiatric general PM: anxiety Palliative Care-Exam - Constitutional Vitals: Temp Pulse Resp BP Pulse Ox 98.4 F 93 20 109/79 92 02/02/17 11:22 02/02/17 11:22 02/02/17 11:22 02/02/17 11:22 02/02/17 11:22 General appearance: Present: mild distress Exam: Patient requiring face mask O2 at 7L at this time. Bipap at bedside PRN - Head Head Exam: Present: atraumatic, normal inspection - Eye Eye exam: Present: PERRL - ENT ENT exam: Present: mucous membranes moist - Expanded Respiratory Exam Location: decreased breath sounds: Left, Right, Lower, wheezes: Left, Right, Upper - Cardiovascular Cardiovascular exam: Present: irregular rhythm, +S1, +S2 - Expanded Cardiovascular Exam Peripheral pulses: 1+: Femoral (L) PM, Femoral (R) PM, Posterior Tibialis (L), Posterior Tibialis (R), 2+: Carotid (L) PM, Carotid (R) PM, Radial (L), Radial ( R), Dorsalis Pedis (L) PM, Dorsalis Pedis (R) PM - GI/Abdominal Exam GI/Abdominal exam: Present: normal bowel sounds - Catheter Type: Urethral ([place]) - Expanded Upper Extremities Exam Shoulder exam: Present: full ROM Upper Arm exam: Present: full ROM - Neurological Exam Neurological exam: Present: altered - Expanded Neurological Exam Coma Scale Verbal Response: Confused - Psychiatric Psychiatric exam: Present: flat affect - Skin Skin exam: Present: pallor, warm Internal Medicine - CN: Reslt - Labs CBC & Chem 7: 02/02/17 04:59 02/02/17 04:59 Labs: Short CBC 02/02/17 Range/Units 04:59 WBC 10.6 (4.3-11.1) K/mcL Hgb 14.7 (12.9-16.9) g/dL Hct 44.4 (37.5-50.1) % Plt Count 244 (140-400) K/mcL Neutrophils # 8.9 (1.6-8.9) K/mcL BMP 02/02/17 04:59 Sodium 140 Potassium 3.4 L Chloride 92 L Carbon Dioxide 41 H* BUN 21 Creatinine 0.64 L Glucose 184 H Calcium 9.5 - ABG Interpretation ABG results: ABG ABG pH 7.46 pH Units (7.32-7.45) H 02/01/17 16:28 ABG pCO2 68 mmHg (35-45) H 02/01/17 16:28 ABG pO2 61 mmHg (85-104) L 02/01/17 16:28 ABG O2 Saturation 91 % (95-98) L 02/01/17 16:28 PT/INR, D-dimer PT 25.8 Seconds (9.4-12.1) H 01/27/17 14:38 - Impressions Impressions Head CT 02/01/17 16:01 IMPRESSION: 1. No convincing acute intracranial abnormality. 2. Minimal global parenchymal volume loss with chronic microvascular ischemic change. 3. Minimal atherosclerosis. D/ / Moe Raza MD / Moe Raza MD Interpreting Provider: Moe Raza MD Consult Discharge Plan - Plan Referrals: NONE,PCP [Non-Partnered Physician] - Prescriptions: LORazepam Oral Conc [Ativan Oral Conc] 1 mg PO Q6HR PRN #15 mls PRN Reason: Anxiety Morphine Oral CONC [Roxanol] 1 ml PO Q4H PRN #30 ml PRN Reason: Dyspnea Palliative Quality Palliative Quality: Screen for Code Status: Yes, Screen for Goals of Care: Yes, Screen for Pain: Yes, If Pain Regimen Started, Initiate Bowel Regimen: Yes, Screen for Nausea/Vomitting: Yes Code Status: 01/27/17 17:08 Resuscitation Status: Active [RES] Routine Comment: Signed state form in assisted records Resuscitation Status: DNR-Comfort Care-Arrest 02/02/17 12:31 DNR [Resuscitation Status: Active] [RES] Routine Resuscitation Status: DNR-Comfort Care Comment:
--- NOTE | 2017-02-02 14:57 | Physician Discharge Referral ---
ExtendedCare Referral Info Transfer To: [facility] Provider in Charge after Transfer: [facility] Institutional Level of Care: Intermediate - Diagnosis (1) Acute respiratory failure with hypoxia and hypercarbia Priority: Primary Status: Acute (2) CHF (congestive heart failure) Priority: Primary Status: Suspected (3) Pneumonia Priority: Primary Status: Resolved (4) COPD exacerbation Priority: Primary Status: Resolved (5) A-fib Priority: Secondary Status: Chronic (6) CAD (coronary artery disease) Priority: Secondary Status: Chronic (7) Hypertension Priority: Secondary Status: Chronic (8) Hypothyroid Priority: Secondary Status: Chronic (9) Stage 1 decubitus ulcer Priority: Secondary Status: Chronic (10) Unstageable decubitus ulcer Priority: Secondary Status: Chronic (11) Unstageable decubitus ulcer Priority: Secondary Status: Chronic (12) Unstageable decubitus ulcer Priority: Secondary Status: Chronic Expected Duration of Placement: custodial Prognosis: Poor Aware of Diagnosis: Patient, Family Aware of Prognosis: Patient, Family - Transfer Medications Prescriptions: LORazepam Oral Conc [Ativan Oral Conc] 1 mg PO Q6HR PRN #15 mls PRN Reason: Anxiety Morphine Oral CONC [Roxanol] 1 ml PO Q4H PRN #30 ml PRN Reason: Dyspnea Home Medications: Benzonatate [Tessalon] 100 mg PO TID PRN 05/25/15 [History] BuPROPion XL (24 HR) [Wellbutrin Xl] 300 mg PO DAILY 05/25/15 [History] Budesonide/Formoterol 160/4.5 [Symbicort 160/4.5] 2 puff IH BIDR 05/25/15 [ History] Digoxin [Lanoxin] 0.125 mg PO DAILY 05/25/15 [History] Hydrocortisone [Proctozone-Hc] 1 appl TP AD PRN 05/25/15 [History] Levothyroxine [Synthroid] 75 mcg PO DAILY 05/25/15 [History] Melatonin [Melatin] 6 mg PO HS PRN 05/25/15 [History] Metoprolol XL (24 HR) Succ [Toprol Xl] 50 mg PO DAILY 05/25/15 [History] OLANZapine [Zyprexa] 20 mg PO HS 05/25/15 [History] Polyethylene Glycol 3350 [MiraLAX] 17 gm PO HS 05/25/15 [History] Psyllium Husk [Metamucil] 660 gm PO DAILY PRN 05/25/15 [History] Rivaroxaban [Xarelto] 20 mg PO DAILY 05/25/15 [History] Guaifenesin [Mucinex] 600 mg PO Q12H 12/17/16 [History] Eucalyptus/Menthol [Cough Drops] 2 each MM Q4H PRN 01/27/17 [History] Acetaminophen [Tylenol] 650 mg PO Q6HR PRN tablet 02/02/17 [Rx] Albuterol Neb [Proventil Neb] 2.5 mg IH Q2H PRN inhsol 02/02/17 [Rx] Diltiazem CD (24hr) [Cardizem CD] 240 mg PO DAILY cap.er.24h 02/02/17 [Rx] Ipratropium/Albuterol Neb [Duoneb] 3 ml IH [id number] inhsol 02/02/17 [Rx] LORazepam Oral Conc [Ativan Oral Conc] 1 mg PO Q6HR PRN #15 mls 02/02/17 [Rx] Morphine Oral CONC [Roxanol] 1 ml PO Q4H PRN #30 ml 02/02/17 [Rx] Nystatin Cream [Mycostatin Cream] 1 appl TP BID tube 02/02/17 [Rx] predniSONE [PredniSONE] 40 mg PO DAILY tablet 02/02/17 [Rx] Allergies/Adverse Reactions: 3 Allergy/AdvReac Type Severity Reaction Status Date / Time amitriptyline Allergy Rash Verified 01/27/17 15:24 divalproex sodium AdvReac Rash Verified 01/27/17 15:24 [From Depakote] Imipramine [From Tofranil] AdvReac Rash Verified 01/27/17 15:24 lamotrigine [From Lamictal] AdvReac Rash Verified 01/27/17 15:24 [place] AdvReac Rash Verified 01/27/17 15:24 Nefazodone [From Serzone] AdvReac See Verified 01/27/17 15:24 Comments - Respiratory Orders Smoking Cessation: Smoking cessation has been advised. For more information, call the [place] Tobacco Quit Line at 6-174-TPNI-NOW. - Ancillary Orders May use pressure relief devices daily prn, May consult with Dentist, Senior Back End Java Developer, Melt Supervisor PRN - Advance Directives Power of Plate Grainer: Yes Code Status: DNR-Comfort Care - History and Physical History/Physical reviewed & approved w/add comments: Essentially unchanged from admit - Mobility Orders Other (As tolerated) - Rehabiliation Orders Rehab Potential: Poor - Treatments Skin tear care topically daily PRN per policy, May check for fecal impaction rectally daily PRN, Fleet enema rectally every other day PRN cleansing purposes - Diet Orders Cardiac CERTIFICATION: I certify that the transfer of the above named patient to an Extended Care Facility is necessary for the continuing treatment of the diagnosis listed. The above information is true and accurate reflection of patient's current condition. Confidential - Redisclosure prohibited without a patient's written consent.
--- NOTE | 2017-02-02 15:11 | Discharge Summary ---
Date of Encounter: 02/02/17 Time of Encounter: 09:30 - Discharge Diagnosis (1) Acute respiratory failure with hypoxia and hypercarbia Priority: Primary Status: Acute (2) CHF (congestive heart failure) Priority: Primary Status: Suspected Qualifiers: Congestive heart failure type: diastolic Congestive heart failure chronicity: acute on chronic Qualified Code(s): I50.33 - Acute on chronic diastolic (congestive) heart failure (3) Pneumonia Priority: Primary Status: Resolved Qualifiers: Pneumonia type: due to other aerobic Gram-negative bacteria Laterality: left Lung location: lower lobe of lung Qualified Code(s): J15.6 - Pneumonia due to other Gram-negative bacteria (4) COPD exacerbation Priority: Secondary Status: Resolved (5) A-fib Priority: Secondary Status: Chronic Qualifiers: Atrial fibrillation type: permanent Qualified Code(s): I48.2 - Chronic atrial fibrillation (6) CAD (coronary artery disease) Priority: Secondary Status: Chronic Qualifiers: Coronary Disease-Associated Artery/Lesion type: [place] artery [place] vs. transplanted heart: [place] heart Associated angina: without angina Qualified Code(s): I25.10 - Atherosclerotic heart disease of [place] coronary artery without angina pectoris (7) Hypertension Priority: Secondary Status: Chronic Qualifiers: Hypertension type: essential hypertension Qualified Code(s): I10 - Essential (primary) hypertension (8) Hypothyroid Priority: Secondary Status: Chronic Qualifiers: Hypothyroidism type: acquired Qualified Code(s): E03.9 - Hypothyroidism, unspecified (9) Stage 1 decubitus ulcer Priority: Secondary Status: Chronic Qualifiers: Pressure ulcer location: buttock Laterality: unspecified laterality Qualified Code(s): L89.301 - Pressure ulcer of unspecified buttock, stage 1 (10) Unstageable decubitus ulcer Priority: Secondary Status: Chronic Qualifiers: Pressure ulcer location: heel Laterality: right Qualified Code(s): L89.610 - Pressure ulcer of right heel, unstageable (11) Unstageable decubitus ulcer Priority: Secondary Status: Chronic Qualifiers: Pressure ulcer location: heel Laterality: left Qualified Code(s): L89.620 - Pressure ulcer of left heel, unstageable (12) Unstageable decubitus ulcer Priority: Secondary Status: Chronic Qualifiers: Pressure ulcer location: knee Laterality: left Qualified Code(s): L89.890 - Pressure ulcer of other site, unstageable - Discharge Medications Prescriptions: LORazepam Oral Conc [Ativan Oral Conc] 1 mg PO Q6HR PRN #15 mls PRN Reason: Anxiety Morphine Oral CONC [Roxanol] 1 ml PO Q4H PRN #30 ml PRN Reason: Dyspnea Home Medications: Benzonatate [Tessalon] 100 mg PO TID PRN 05/25/15 [History] BuPROPion XL (24 HR) [Wellbutrin Xl] 300 mg PO DAILY 05/25/15 [History] Budesonide/Formoterol 160/4.5 [Symbicort 160/4.5] 2 puff IH BIDR 05/25/15 [ History] Digoxin [Lanoxin] 0.125 mg PO DAILY 05/25/15 [History] Hydrocortisone [Proctozone-Hc] 1 appl TP AD PRN 05/25/15 [History] Levothyroxine [Synthroid] 75 mcg PO DAILY 05/25/15 [History] Melatonin [Melatin] 6 mg PO HS PRN 05/25/15 [History] Metoprolol XL (24 HR) Succ [Toprol Xl] 50 mg PO DAILY 05/25/15 [History] OLANZapine [Zyprexa] 20 mg PO HS 05/25/15 [History] Polyethylene Glycol 3350 [MiraLAX] 17 gm PO HS 05/25/15 [History] Psyllium Husk [Metamucil] 660 gm PO DAILY PRN 05/25/15 [History] Rivaroxaban [Xarelto] 20 mg PO DAILY 05/25/15 [History] Guaifenesin [Mucinex] 600 mg PO Q12H 12/17/16 [History] Eucalyptus/Menthol [Cough Drops] 2 each MM Q4H PRN 01/27/17 [History] Acetaminophen [Tylenol] 650 mg PO Q6HR PRN tablet 02/02/17 [Rx] Albuterol Neb [Proventil Neb] 2.5 mg IH Q2H PRN inhsol 02/02/17 [Rx] Diltiazem CD (24hr) [Cardizem CD] 240 mg PO DAILY cap.er.24h 02/02/17 [Rx] Ipratropium/Albuterol Neb [Duoneb] 3 ml IH [id number] inhsol 02/02/17 [Rx] LORazepam Oral Conc [Ativan Oral Conc] 1 mg PO Q6HR PRN #15 mls 02/02/17 [Rx] Morphine Oral CONC [Roxanol] 1 ml PO Q4H PRN #30 ml 02/02/17 [Rx] Nystatin Cream [Mycostatin Cream] 1 appl TP BID tube 02/02/17 [Rx] predniSONE [PredniSONE] 40 mg PO DAILY tablet 02/02/17 [Rx] Allergies/Adverse Reactions: 3 Allergy/AdvReac Type Severity Reaction Status Date / Time amitriptyline Allergy Rash Verified 01/27/17 15:24 divalproex sodium AdvReac Rash Verified 01/27/17 15:24 [From Depakote] Imipramine [From Tofranil] AdvReac Rash Verified 01/27/17 15:24 lamotrigine [From Lamictal] AdvReac Rash Verified 01/27/17 15:24 [place] AdvReac Rash Verified 01/27/17 15:24 Nefazodone [From Serzone] AdvReac See Verified 01/27/17 15:24 Comments Procedures/tests Complete & Pending: Procedures Performed prior 72 hours Category Date Time Status CT head/brain wo con [CT] Stat Cat Scan 02/01/17 16:01 Completed Date of admission: 01/27/17 15:44 Primary care physician: Govind Stevenson MD Consults: 01/27/17 17:16 Consult to Batch Tank Controller [CONS] Routine Reason for SW Consult: Discharge planning. Appears patient was to go to new facility today ([facility]). 01/31/17 13:42 Consult to Occupational Therapy [CONS] Routine Comment: Evaluate, develop and implement POC Reason for Consult: eval for rehab Consult to Physical Therapy [CONS] Routine Comment: Evaluate, develop and implement POC Reason for Consult: eval for rehab 02/01/17 10:08 Consult to Wound Care [CONS] Routine Reason for Consult: bilateral lower extremity wounds Call Completed: No 02/01/17 10:15 Consult to Cardiology [CONS] Routine Comment: Consulting Provider: Cardiology [place] Reason for Consult: Afib RVR, cannot be weaned off cardizem gtt Call Completed: Yes 02/01/17 15:09 Consult to Palliative Care [CONS] Routine Comment: Consulting Provider: Palliative Care [place] Reason for Consult: end of life/goals of care discussion requested by family Call Completed: Yes Discharging clinician: Abilio Capone Anticipated date of discharge: 02/02/17 - Patient Status Disposition: Hospice - Medical Facility Condition: Fair Functional capacity at discharge: uses cane/walker Overall status at discharge: other - Discharge Instructions Follow Up With: NONE,PCP [Non-Partnered Physician] - - Diet and Activity Activity: increase activity as tolerated Diet: low fat, low cholesterol, low salt diet Hospital course: Mr. Choi is a 76 year old male with hx of chronic a fib and COPD presented to ED with complaints of dyspnea and cough. He had been treated for pneumonia as outpatient and was no better. He was evaluated in ED and admitted for further evaluation and treatment. Mr Choi was admitted to [facility]. He was started on oxygen, aerosols, steroids and abx. He had multiple small decubiti which were treated with wound care. He has very slow improvement over the first 48hours. He was maintained on the same abx and steroids at that time. On the morning of 01/30 he was more hypoxic and distressed. CXR was consistent with pulmonary edema and he was placed on bipap and transferred to [facility]. He received IV diuretic as well. He was much more confused due to CO2 narcosis. He was in rapid a fib and cardizem drip was started. Over the next two days multiple attempts were made to get him off bipap and card drip without success. He continued to overall decline. Palliative care was consulted and met with patient and POA. Decision was made to involve Hospice and he has been discharged to the [facility] with hospice care. - Time Spent with Patient Total time spent providing and/or coordinating discharge services: 41min - Constitutional Vitals: Temp Pulse Resp BP Pulse Ox 98.4 F 93 20 109/79 92 02/02/17 11:22 02/02/17 11:22 02/02/17 11:22 02/02/17 11:22 02/02/17 11:22 General appearance: Present: A&O X 3, pleasant - Head Head exam: Present: normocephalic - Eye Eye exam: Present: EOMI, conjuntiva pink - ENT ENT exam: Present: mucous membranes moist - Respiratory Respiratory exam: Present: rhonchi, wheezes - Cardiovascular Cardiovascular exam: Present: irregular rhythm, tachycardia - GI/Abdominal GI/Abdominal exam: Present: soft. Absent: tenderness - Extremities Exam Extremities exam: Present: warm. Absent: tenderness - Neurological Exam Neurological exam: Present: alert, altered - Skin Skin exam: Present: dry, warm
[2017-02-02 15:18] VITALS: BP 112/79
[2017-02-02] MEDS ORDERED: Leptospermum Honey Gel 44 ML TUBE TP SCH (21:00)
--- NOTE | 2017-02-03 07:52 | Event Note ---
Date of Encounter: 02/03/17 Time of Encounter: 07:50 Hospice pediatric medical assistant certification of terminal illness: Hospice benefit. Start: 02/02/2017 Hospice benefit. In: +90 days Palliative performance scale: Approximately 30% History: History of COPD chronic A. fibwith pneumonia failing to respond well. Patient has had a steady decline over the last several months despite medical interventions and medications. As his breathing is so poor and getting worse, and the patient wishes to have no further aggressive care believe that These findings support a life expectancy of 6 months or less. I attest that I have compose the above narrative based on my review of the patient's medical records, and or on my examination of the patient. Pantera Rincon M.D. Associate medical appointment scheduler. [facility]
== END 2017-02-02 16:24 | disposition hospice, inpatient (51) | DRG 177 ==
LOC: EMEROO 13:56 → 2ANU 15:44 → SUATTDRO 15:44 → 2ANU 15:49 → 2NNU 01-30 11:09
PROVIDERS: ADMIT Internal Medicine; ATTEND Internal Medicine

== ENCOUNTER 2017-02-03 10:58 | Inpatient (IN) ==
[2017-02-03] MEDS ORDERED: Ipratropium/Albuterol Neb 3 ML IH ONE (11:01)
--- NOTE | 2017-02-03 11:04 | Emergency Department Note ---
Disposition Clinical Impression: Weakness, Goals of care, counseling/discussion, Healthcare-associated pneumonia Disposition: Admitted As Inpatient Condition: Fair Time of Disposition: 18:24 General Adult HPI - General Chief complaint: ED Urogenital-Male Stated complaint: pulled catheter out Time Seen by Provider: 02/03/17 11:00 Source: patient, EMS Mode of arrival: EMS Limitations: altered mental status Nursing Notes Reviewed: Yes Vital Signs Reviewed: Yes - History of Present Illness HPI Narrative: 76-year-old male hospice patient presents to the ED via EMS from assisted facility for pulling out ramos catheter. Bleeding has been controlled prior to coming in. Noted by EMS some respiratory distress and acute alteration of mentation. He was recently discharged from hospital and placed on hospice care at that time. On arrival here patient is in significant respiratory distress on a non-rebreather with low oxygen saturation. Patient has no pain in his abdomen. Lungs are significantly coarse. Patient has hypoxia on a nonrebreather mask 100% oxygen. Pulse ox is still 90%. Patient is altered. Decreased breath sounds and coarse on the left with scattered wheezing. He appears acutely altered. There is blood at the meatus of his penis but is not bright red. At this time a septic workup initiated. It appears he received a CT of the head 48 hours ago. Chest x-rays were performed but no CT of the chest. Several minutes later power of trademark attorney cousin Scott, there appears to be some disconnect between the patient's wishes and goals. On his chart there is a do not resuscitate comfort care arrest. The patient is now awake alert and oriented and much improved than before. Spoke with the patient and discuss plan of care. At this time he would like to be treated for any pneumonia or infectious process. He understands this may revoke his hospice care. Dr. Rincon and the hospice team is at bedside discussing with the patient and power of trademark attorney. They have agreed to continue further treatment and testing and therefore revoking their Medicare Medicaid hospice benefits. Spoke with Sheela the hospice customer field representative. Will proceed with further testing and images. Our nurse has been able to reestablish his chronic ramos urinary catheter. - Related Data Home Medications Medication Instructions Recorded Confirmed Benzonatate [Tessalon] 100 mg PO TID PRN 05/25/15 01/27/17 BuPROPion XL (24 HR) [Wellbutrin 300 mg PO DAILY 05/25/15 01/27/17 Xl] Budesonide/Formoterol 160/4.5 2 puff IH BIDR 05/25/15 01/27/17 [Symbicort 160/4.5] Digoxin [Lanoxin] 0.125 mg PO DAILY 05/25/15 01/27/17 Hydrocortisone [Proctozone-Hc] 1 appl TP AD PRN 05/25/15 01/27/17 Levothyroxine [Synthroid] 75 mcg PO DAILY 05/25/15 01/27/17 Melatonin [Melatin] 6 mg PO HS PRN 05/25/15 01/27/17 Metoprolol XL (24 HR) Succ [Toprol 50 mg PO DAILY 05/25/15 01/27/17 Xl] OLANZapine [Zyprexa] 20 mg PO HS 05/25/15 01/27/17 Polyethylene Glycol 3350 [MiraLAX] 17 gm PO HS 05/25/15 01/27/17 Psyllium Husk [Metamucil] 660 gm PO DAILY PRN 05/25/15 01/27/17 Rivaroxaban [Xarelto] 20 mg PO DAILY 05/25/15 01/27/17 Guaifenesin [Mucinex] 600 mg PO Q12H 12/17/16 01/27/17 Eucalyptus/Menthol [Cough Drops] 2 each MM Q4H PRN 01/27/17 01/27/17 Previous Rx's Medication Instructions Recorded Acetaminophen [Tylenol] 650 mg PO Q6HR PRN tablet 02/02/17 Albuterol Neb [Proventil Neb] 2.5 mg IH Q2H PRN inhsol 02/02/17 Diltiazem CD (24hr) [Cardizem CD] 240 mg PO DAILY cap.er.24h 02/02/17 Ipratropium/Albuterol Neb [Duoneb] 3 ml IH [id number] inhsol 02/02/17 LORazepam Oral Conc [Ativan Oral 1 mg PO Q6HR PRN #15 mls 02/02/17 Conc] Morphine Oral CONC [Roxanol] 1 ml PO Q4H PRN #30 ml 02/02/17 Nystatin Cream [Mycostatin Cream] 1 appl TP BID tube 02/02/17 predniSONE [PredniSONE] 40 mg PO DAILY tablet 02/02/17 Allergies Allergy/AdvReac Type Severity Reaction Status Date / Time amitriptyline Allergy Rash Verified 02/03/17 11:08 divalproex sodium AdvReac Rash Verified 02/03/17 11:08 [From Depakote] Imipramine [From Tofranil] AdvReac Rash Verified 02/03/17 11:08 lamotrigine [From Lamictal] AdvReac Rash Verified 02/03/17 11:08 Alger AdvReac Rash Verified 02/03/17 11:08 Nefazodone [From Serzone] AdvReac See Verified 02/03/17 11:08 Comments Limitations: ROS unobtainable due to patients medical condition Past Medical History - Past Medical History Source: old records reviewed, obtained from family Medical history: Reports: atrial fibrillation, CHF, COPD, hypertension, thyroid disease, other Surgical history: Reports: knee replacement, other Psychiatric history: Reports: anxiety, depression - Social History Smoking Status: Never smoker Smokeless Tobacco Status: No Alcohol use: Reports: none Drug use: Reports: none Physical Exam - General Limitations: altered mental status General appearance: in distress (Mild respiratory) - Head Head exam: atraumatic, normocephalic, normal inspection - Eye Eye exam: Present: normal appearance, PERRL, EOMI - ENT ENT exam: normal exam, normal oropharynx, mucous membranes moist - Neck Neck exam: Present: normal inspection, full ROM, trachea midline. Absent: tenderness, meningismus - Chest Chest inspection: Present: normal inspection, symmetric chest wall rise. Absent : tenderness - Respiratory Respiratory exam: Present: respiratory distress (mild), wheezes - Expanded Respiratory Exam Location: wheezes: Left, Right, decreased breath sounds: Left - Cardiovascular Cardiovascular exam: Present: regular rate, normal rhythm, normal heart sounds - Abdominal Exam Abdominal exam: Present: soft, Non-Tender, normal bowel sounds. Absent: tenderness, distention, guarding, rebound, rigidity - Male exam: Present: normal inspection, circumcised, other (no laceration of meatus ). Absent: penile swelling, testicular tenderness - Extremities Exam Extremities exam: Present: normal inspection, full ROM, normal capillary refill , other (mulitple arthroscopic scars). Absent: tenderness, pedal edema, calf tenderness - Back Exam Back exam: Present: normal inspection, full ROM. Absent: tenderness - Psychiatric Psychiatric exam: Present: normal affect, normal mood, agitated - Skin Skin exam: Present: warm, dry, intact, normal color. Absent: rash, cyanosis, diaphoresis Course Course Narrative: 76-year-old male presents initially for concern of urethral injury from pulling urinary ramos catheter. At the assisted facility they were unable to stop the bleeding. Patient presents here with some blood clots but no bright red blood in the urethra and bleeding appears controlled. On arrival here he appears acutely confused and altered. He is in some respiratory distress with low oxygen saturation requiring oxygen supplementation. He has history of severe COPD. Per EMS patient was recently placed on hospice care yesterday prior to discharge, DNRCC-Arrest. We did have palliative care come down to evaluate the patient initially states he should of not come here for further evaluation as he is on hospice. Several minutes later patient's power of trademark attorney who is the cause and presents here. He is updated on the case. Patient has improved mentation is now awake alert and oriented to person place and time. He has received continuous DuoNeb treatment with improvement. We were successful in replacing his urinary Ramos catheter without any difficulty. However due to his current respiratory status will further investigate. The power of trademark attorney is in agreement with this plan. However speak with palliative care sounds like this would revoke his current status. After a long discussion there appears to be some disconnect and confusion as the patient and family would like to attempt treatment if possible. Will pursue the CT of the chest as well as the CT of the head as well as multiple laboratory investigation. Disposition pending workup. - Reevaluation(s) Reevaluation #1: Review of his CT head does not show any interval changes. No acute intracranial abnormality. CT of the chest concerning for multifocal pneumonia versus ARDS. According to family patient has been receiving some IV antibiotics on shore which kind. At this time they would like to continue treatment. Will treat and cover for healthcare associated pneumonia as he is currently in a assisted facility. His laboratory results are quite unremarkable. Lactate is normal 0.9. Troponin unremarkable. BNP is slightly elevated 180. Creatinine function is baseline. Patient is not septic. He is not hypotensive. Does not require aggressive fluid resuscitation of 30 mL per kilogram. Patient will be admitted for further treatment. He will likely need palliative consultation again on the floor. Recommend another family meeting with the power of trademark attorney. I have spoke to the power of trademark attorney by phone and they are still in agreement with this plan. CT of the abdomen and pelvis was also performed due to some distention of bowel seen on CT chest, suggestive of possible colitis. However on examination no abdominal pain or tenderness. Will not treat at this time. Impression is weakness, healthcare associated pneumonia. Ramos urinary catheter has been replaced with good urine output. - Consultations Consultation #1: Patient is currently in hospice with a DNR CCA. We will determine this is appropriate management treatment course as vital signs are concerning. Power of trademark attorney Scott Lu arrived in the emergency room. Patient at this time is now more lucid and wishes to be treated.Hospice Nurse Sheela at the bedside for Discussion. We will determine disposition at this time whether further treatment or discharge back to nursing facility due to code status. Roughly around 1300 patient has revoked hospice at this time. CT imaging to be completed. They are aware that hospice is not financial responsible for images. POA would like to continue with further imaging and treatment which may include continuation of antibiotics. Once this evaluation is established and results will discuss disposition with the family, power of trademark attorney, and the patient. Hospice nurse has been at the bedside and had lengthy discussion with the family and establish his treatment course. Time: 12:50 Consultation #2: Spoke with on-call hospitalist jamaica Curtis to admit for weakness, acute respiratory distress, hypoxia, HCAP vs. ARDS. Will be admitted for definitive management. No further orders at this time Vital Signs Temperature 97.6 F 02/03/17 10:59 Pulse Rate 92 02/03/17 10:59 Respiratory Rate 20 02/03/17 10:59 Blood Pressure 119/96 02/03/17 10:59 O2 Sat by Pulse Oximetry 93 02/03/17 10:59 Temperature 97.6 F 02/03/17 10:59 Pulse Rate 100 02/03/17 18:54 Respiratory Rate 22 02/03/17 19:15 Blood Pressure 131/92 02/03/17 19:15 O2 Sat by Pulse Oximetry 97 02/03/17 18:54 Oxygen Delivery Oxygen Delivery Oximizer Medical Decision Making - MDM Narrative Medical decision making narrative: Patient was discussed with my attending physician who agrees with ED management and final disposition. They independently evaluated the patient. Please refer to their attestation to this encounter for additional information. This note was generated by [employer] voice recognition software and as a result grammatical or spelling errors may occur using this program. - Medical Records Medical records reviewed: Yes I reviewed the patient's medical records. - Lab Data Lab results reviewed: Yes I reviewed the patient's lab results. Result diagrams: 02/03/17 11:20 02/03/17 11:20 Lab Results 02/03/17 02/03/17 02/03/17 Range/Units 11:20 11:20 11:20 WBC 9.3 (4.3-11.1) K/mcL RBC 4.97 (4.19-5.50) M/mcL Hgb 15.3 (12.9-16.9) g/dL Hct 45.3 (37.5-50.1) % MCV 91.1 (83.0-100.0) fL MCH 30.8 (28.0-33.3) pg MCHC 33.8 (31.6-35.5) g/dL RDW 12.8 (11.5-14.5) % Plt Count 296 (140-400) K/mcL MPV 9.5 (9.4-12.4) fL Immature Gran % 0.3 (0-4) % Seg Neutrophils % 86.0 % Lymphocytes % 7.9 % Monocytes % 5.6 % Eosinophils % 0.1 % Basophils % 0.1 % Neutrophils # 8.0 (1.6-8.9) K/mcL Lymphocytes # 0.7 (0.6-4.6) K/mcL Monocytes # 0.5 (0.0-1.3) K/mcL Eosinophils # 0.0 (0.0-0.6) K/mcL Basophils # 0.0 (0.0-0.2) K/mcL Sodium 141 (136-145) mEq/L Potassium 3.5 (3.5-4.5) mEq/L Chloride 96 L (98-109) mEq/L Carbon Dioxide 39 H (19-29) mEq/L BUN 20 (8-26) mg/dL Creatinine 0.62 L (0.72-1.25) mg/dL Est GFR ( Amer) > 60 (> 60) Est GFR (Non-Af Amer) > 60 (> 60) BUN/Creatinine Ratio 32 H (6-26) Glucose 193 H (70-99) mg/dL Calculated Osmolality 300 (280-300) Lactic Acid 0.9 (0.5-2.2) mmol/L Calcium 10.0 (8.6-10.8) mg/dL Troponin I (0-0.03) ng/mL B-Natriuretic Peptide (0-100) pg/mL 02/03/17 02/03/17 02/03/17 Range/Units 11:20 11:20 13:20 WBC (4.3-11.1) K/mcL RBC (4.19-5.50) M/mcL Hgb (12.9-16.9) g/dL Hct (37.5-50.1) % MCV (83.0-100.0) fL MCH (28.0-33.3) pg MCHC (31.6-35.5) g/dL RDW (11.5-14.5) % Plt Count (140-400) K/mcL MPV (9.4-12.4) fL Immature Gran % (0-4) % Seg Neutrophils % % Lymphocytes % % Monocytes % % Eosinophils % % Basophils % % Neutrophils # (1.6-8.9) K/mcL Lymphocytes # (0.6-4.6) K/mcL Monocytes # (0.0-1.3) K/mcL Eosinophils # (0.0-0.6) K/mcL Basophils # (0.0-0.2) K/mcL Sodium (136-145) mEq/L Potassium (3.5-4.5) mEq/L Chloride (98-109) mEq/L Carbon Dioxide (19-29) mEq/L BUN (8-26) mg/dL Creatinine (0.72-1.25) mg/dL Est GFR ( Amer) (> 60) Est GFR (Non-Af Amer) (> 60) BUN/Creatinine Ratio (6-26) Glucose (70-99) mg/dL Calculated Osmolality (280-300) Lactic Acid 1.1 (0.5-2.2) mmol/L Calcium (8.6-10.8) mg/dL Troponin I 0.00 (0-0.03) ng/mL B-Natriuretic Peptide 181 H (0-100) pg/mL - Radiology Data Radiology results reviewed: Yes I reviewed the patient's radiology results. Abdomen/Pelvis CT 02/03/17 00:00 IMPRESSION: 1. Multifocal airspace opacities in the right middle and bilateral lower lobes. Pattern may represent multifocal pneumonia or ARDS. Follow-up imaging recommended to ensure resolution. 2. Distended colon with air-fluid levels. Pattern suspected to represent underlying colitis. No focal inflammation or evidence of obstruction. D/ / Liborio Lombardi MD / Liborio Lombardi MD Interpreting Provider: Liborio Lombardi MD Head CT 02/03/17 11:02 IMPRESSION: No acute intracranial abnormality. New bilateral right greater than left mastoid air cell opacification, correlate for the possibility of mastoiditis. D/ / Jah Jacobs MD / Jah Jacobs MD Interpreting Provider: Jah Jacobs MD Chest CT 02/03/17 11:03 IMPRESSION: 1. Multifocal airspace opacities in the right middle and bilateral lower lobes. Pattern may represent multifocal pneumonia or ARDS. Follow-up imaging recommended to ensure resolution. 2. Distended colon with air-fluid levels. Pattern suspected to represent underlying colitis. No focal inflammation or evidence of obstruction. D/ / Liborio Lombardi MD / Liborio Lombardi MD Interpreting Provider: Liborio Lombardi MD - EKG Data EKG #1 EKG attestation: Yes I reviewed and interpreted this EKG. EKG results narrative: EKG performed 1104 atrial fibrillation 87 bpm, QRS 112, intraventricular conduction delay, no ST elevations, mild ST depressions in V2 appears old and improved from prior, no T wave inversion. Compared to old EKG performed 2016 shows atrial fibrillation with rapid ventricular response 122 bpm. No acute ischemic changes. Attestation Statement - Attestation Attestation: I, Keagan Lloyd DO, examined this patient [id number] and my medical decision-making was reviewed with Ranjeet Odom DO , Resident Physician. I agree with the documented findings, disposition and treatment plan as described except to the extent set forth below. Please see my progress notes for details. 76-year-old male presents emergency room from assisted facility for evaluation of hypoxia altered mentation and shortness of breath. Patient just left of facility yesterday with hospice and a DNR CCA medical intervention treatment course established. He was seen by palliative care here in the hospital. Patient presents here today at the request of the nursing staff at the nursing facility. Initially patient did not have any family present with him. EMS transported with the patient being altered confused and hypoxic. Reason for transport as the patient pulled out his urine Ramos catheter that point. Bleeding was controlled to coming in. Patient has no pain in his abdomen. Lungs are significantly course. Patient has hypoxia on a nonrebreather mask 100% oxygen. Pulse ox is still 90%.. Patient is altered. Sepsis evaluation and be completed. CT of the head CT the chest labs including EKG troponin and BNP as well as oxygenation breathing treatments to be provided. Patient is currently in hospice with a DNR CCA. We will determine this is appropriate management treatment course vital signs are concerning. Power of trademark attorney arrived in the emergency room were discussed in detail her stomach impression the patient is given medical management. Informational Hospice Is Noted at This Time. Hospice Nurse at the Bedside for Discussion. We Will Determine Disposition at This Time. See Detailed Documentation of Physical Exam, Medical Intervention, Medical Decision-Making and Disposition of the Resident Physician's Note 1250 Patient has revoked hospice at this time. CT imaging to be completed. Once this evaluation is established and results will discuss disposition with the family, power of trademark attorney, and the patient. Medical intervention to be established at this time including continuation of antibiotics as needed as well as evaluation for the hypoxia and altered mentation. Hospice nurse has been at the bedside and had lengthy discussion with the family and establish his treatment course. 1600 Patient had bilateral bases in the lung. Concern for persistent pneumonia as well as ARDS. Patient will be admitted for definitive management. CT abdomen does not show any acute obstructive pathology but there is slight distention of the intestinal rash. Patient's white count is resolved and otherwise stable at this point. Admission process to be completed this time.
[2017-02-03 11:31] LABS: Basophils % 0.1 %; Eosinophils % 0.1 %; Hematocrit 45.3 % (37.5-50.1); Hemoglobin 15.3 g/dL (12.9-16.9); Immature Granulocytes % 0.3 % (0-4); Lymphocytes # 0.7 K/mcL (0.6-4.6); Lymphocytes % 7.9 %; Mean Corpuscular HGB Conc 33.8 g/dL (31.6-35.5); Mean Corpuscular Hemoglobin 30.8 pg (28.0-33.3); Mean Corpuscular Volume 91.1 fL (83.0-100.0); Mean Platelet Volume 9.5 fL (9.4-12.4); Monocytes # 0.5 K/mcL (0.0-1.3); Monocytes % 5.6 %; Platelet Count 296 K/mcL (140-400); Red Blood Count 4.97 M/mcL (4.19-5.50); Red Cell Distribution Width 12.8 % (11.5-14.5)
[2017-02-03 11:42] LABS: BUN/Creatinine Ratio 32 (6-26); Blood Urea Nitrogen 20 mg/dL (8-26); Carbon Dioxide 39 mEq/L (19-29); Chloride 96 mEq/L (98-109); Glucose 193 mg/dL (70-99); Osmolality,Calculated 300 (280-300); Potassium 3.5 mEq/L (3.5-4.5); Sodium 141 mEq/L (136-145); eGFR For African Americans > 60 (> 60); eGFR For Non-African Americans > 60 (> 60)
[2017-02-03] MEDS ORDERED: Levofloxacin 750 MG/150 ML 750 MG/150 ML BAG IVPB ONE (16:30)
[2017-02-03] MEDS ORDERED: Piperacillin/Tazobactam 3.375 GM in D5% in Water (Mini-Bag+) 100 ML IVPB ONE (16:30)
[2017-02-03] MEDS ORDERED: Vancomycin 1,500 MG in D5% in Water 250 ML IVPB ONE (16:30)
[2017-02-03] MEDS ORDERED: Albuterol 2.5 MG/3 ML NEBULIZER IH PRN (23:16)
[2017-02-03] MEDS: Ipratropium/Albuterol Neb 3 ML IH SCH (23:36)
[2017-02-04] MEDS ORDERED: Acetaminophen 325 MG TABLET PO PRN ×2 (00:15→03:16)
[2017-02-04] MEDS ORDERED: Menthol 9.1 MG LOZENGE PO PRN (00:17)
[2017-02-04] MEDS ORDERED: Melatonin 3 MG TABLET PO PRN (00:32)
[2017-02-04] MEDS ORDERED: Haloperidol Lactate 5 MG/ML VIAL IVP ONE (02:19)
[2017-02-04] MEDS ORDERED: Naloxone 0.4 MG/ML INJ IVP PRN ×2 (03:18→03:23)
--- NOTE | 2017-02-04 03:28 | Internal Med History&Physical ---
Date of Encounter: 02/04/17 Time of Encounter: 22:00 Assessment and Plan (1) Encephalopathy Current visit: Yes Status: Acute delirium likely due to multiple co-morbidity imaging with several non-specific findings CT head with possibe mastoiditis ?? CT A/P with air fluid level, possible colitis ?? CT chest with multi-focal infiltrates Empiric IV van, cefepime for now NPO , aspiration precautions Check AXR in the a.m Monitor hospital course closely while awaiting palliative assistance with goals (2) Pneumonia Current visit: No Status: Resolved Iv antibiotics above Qualifiers: Pneumonia type: due to other aerobic Gram-negative bacteria Laterality: left Lung location: lower lobe of lung Qualified Code(s): J15.6 - Pneumonia due to other Gram-negative bacteria (3) Goals of care, counseling/discussion Current visit: Yes Status: Acute some confusion over how aggressive he wish to be treated Previously DNRCC, now revoked hospice, patient too confused to tell me his current wishes consult palliative in the a.m to assist with goals of care in this difficult period. Meanwhile, will place full code for now until further clarity may be obtained - give encephalopathy, patient POA may need to make decision (4) Afib Current visit: Yes Status: Acute Qualifiers: Atrial fibrillation type: chronic Qualified Code(s): I48.2 - Chronic atrial fibrillation (5) COPD (chronic obstructive pulmonary disease) Current visit: Yes Status: Acute Qualifiers: COPD type: chronic bronchitis Qualified Code(s): J41.0 - Simple chronic bronchitis Internal Medicine - H&P: HPI Chief complaint: Confusion History of present illness: Mr. Choi is a 76 year old male who was recently discharged to hospice, presents to the hospital for worsening encephalopathy suspicious to be 2/2 PNA process. He was discharged to hospice 2 days ago and while in the hospice facility, developed worsening AMS with self removal of ramos cath and bleeding. On arrival to ED was found to be in respiratory distress that improved on the floor - suspicious 2/2 mucus plugging. POA was not present on interview and patient is confused. However, it appears that his hospice care was revoked and decision was made for hospital admission to treat any medical issues he has. Seals -imaging in the ED suggest possible colitis ?? , mastoiditis ?? - unclear this fit clinical picture given most possible explanation could PNA/Respiratory distress in setting of multiple co-morbidities CT/CT head/brain wo con IMPRESSION: No acute intracranial abnormality. New bilateral right greater than left mastoid air cell opacification, correlate for the possibility of mastoiditis. CT/CT abd pelvis wo no iv no oral IMPRESSION: 1. Multifocal airspace opacities in the right middle and bilateral lower lobes. Pattern may represent multifocal pneumonia or ARDS. Follow-up imaging recommended to ensure resolution. 2. Distended colon with air-fluid levels. Pattern suspected to represent underlying colitis. No focal inflammation or evidence of obstruction. CT/CT chest wo con IMPRESSION: 1. Multifocal airspace opacities in the right middle and bilateral lower lobes. Pattern may represent multifocal pneumonia or ARDS. Follow-up imaging recommended to ensure resolution. 2. Distended colon with air-fluid levels. Pattern suspected to represent underlying colitis. No focal inflammation or evidence of obstruction. CT/CT head/brain wo con IMPRESSION: No acute intracranial abnormality. New bilateral right greater than left mastoid air cell opacification, correlate for the possibility of mastoiditis. CT/CT abd pelvis wo no iv no oral IMPRESSION: 1. Multifocal airspace opacities in the right middle and bilateral lower lobes. Pattern may represent multifocal pneumonia or ARDS. Follow-up imaging recommended to ensure resolution. 2. Distended colon with air-fluid levels. Pattern suspected to represent underlying colitis. No focal inflammation or evidence of obstruction. Past Med Surg Social Fam HX - Past Medical History Medical history: atrial fibrillation, CHF, COPD, hypertension, thyroid disease, other Psychiatric history: anxiety, depression - Past Surgical History Surgical History: knee replacement, other - Social History Smoking Status: Never smoker Smokeless Tobacco Status: No Alcohol use: none Drug use: none - Family History Mother Living Status: Hx Family Cardiac Disorders: Yes Father Living Status: Hx Family Cardiac Disorders: Yes (Heart disease) Hx Family Cancer: Yes Hx Family GI Disorders: No Hx Family Endocrine Disorder: No Hx Family Neuromuscular Disorders: No Hx Family Neurologic Disorders: No Hx Family HEENT Disorders: No Hx Family Autoimmune Disorders: No Internal Medicine - H&P: Meds Benzonatate [Tessalon] 100 mg PO TID PRN 05/25/15 [History] BuPROPion XL (24 HR) [Wellbutrin Xl] 300 mg PO DAILY 05/25/15 [History] Budesonide/Formoterol 160/4.5 [Symbicort 160/4.5] 2 puff IH BIDR 05/25/15 [ History] Digoxin [Lanoxin] 0.125 mg PO DAILY 05/25/15 [History] Hydrocortisone [Proctozone-Hc] 1 appl TP AD PRN 05/25/15 [History] Levothyroxine [Synthroid] 75 mcg PO DAILY 05/25/15 [History] Melatonin [Melatin] 6 mg PO HS PRN 05/25/15 [History] Metoprolol XL (24 HR) Succ [Toprol Xl] 50 mg PO DAILY 05/25/15 [History] OLANZapine [Zyprexa] 20 mg PO HS 05/25/15 [History] Polyethylene Glycol 3350 [MiraLAX] 17 gm PO HS 05/25/15 [History] Psyllium Husk [Metamucil] 660 gm PO DAILY PRN 05/25/15 [History] Rivaroxaban [Xarelto] 20 mg PO DAILY 05/25/15 [History] Guaifenesin [Mucinex] 600 mg PO Q12H 12/17/16 [History] Eucalyptus/Menthol [Cough Drops] 2 each MM Q4H PRN 01/27/17 [History] Acetaminophen [Tylenol] 650 mg PO Q6HR PRN tablet 02/02/17 [Rx] Albuterol Neb [Proventil Neb] 2.5 mg IH Q2H PRN inhsol 02/02/17 [Rx] Diltiazem CD (24hr) [Cardizem CD] 240 mg PO DAILY cap.er.24h 02/02/17 [Rx] Ipratropium/Albuterol Neb [Duoneb] 3 ml IH [id number] inhsol 02/02/17 [Rx] LORazepam Oral Conc [Ativan Oral Conc] 1 mg PO Q6HR PRN #15 mls 02/02/17 [Rx] Morphine Oral CONC [Roxanol] 1 ml PO Q4H PRN #30 ml 02/02/17 [Rx] Nystatin Cream [Mycostatin Cream] 1 appl TP BID tube 02/02/17 [Rx] predniSONE [PredniSONE] 40 mg PO DAILY tablet 02/02/17 [Rx] 3 Allergy/AdvReac Type Severity Reaction Status Date / Time amitriptyline Allergy Rash Verified 02/03/17 11:08 divalproex sodium AdvReac Rash Verified 02/03/17 11:08 [From Depakote] Imipramine [From Tofranil] AdvReac Rash Verified 02/03/17 11:08 lamotrigine [From Lamictal] AdvReac Rash Verified 02/03/17 11:08 [place] AdvReac Rash Verified 02/03/17 11:08 Nefazodone [From Serzone] AdvReac See Verified 02/03/17 11:08 Comments All Systems PM: A 10-system review of systems was performed and is negative for pertinent findings except as documented above in the HPI. Review of systems: ROS 14 point review of systems reviewed as best as possible given presentation. Pertinent positive or negative as per HPI or otherwise reviewed as negative - Constitutional Vitals: Temp Pulse Resp BP Pulse Ox 97.5 F L 95 17 123/76 91 02/04/17 00:00 02/04/17 00:00 02/04/17 00:00 02/04/17 00:00 02/04/17 00:00 Exam: General - Confused Eyes - JOSE MIGUEL. Eye lids intact. No scleral icterus Neuro - Unable to perform Heart - Irregularly irregular. S1 and S2 present. No added HS/murmurs appreciated. No elevated JVD appreciated. Lung - Adequate air entry b/l, Crackles present. No wheeze GI - Soft, non-tender. No hepatosplenomegaly/ascites. BS+ - No CVA/suprapubic tenderness or palpable bladder distension Skin - Intact. No rash/petechiae/ecchymosis. LE edema Internal Med - H&P Results - Labs CBC & Chem 7: 02/03/17 11:20 02/03/17 11:20
[2017-02-04] MEDS ORDERED: Ringers Solution, Lactated 1,000 ML IVC SCH (03:30)
[2017-02-04] MEDS: Ipratropium/Albuterol Neb 3 ML IH SCH ×3 (03:48→15:49)
[2017-02-04] MEDS ORDERED: Vancomycin 0 MG in D5% in Water 250 ML IVPB SCH (04:00)
[2017-02-04 04:36] LABS: Basophils % 0.1 %; Eosinophils # 0.1 K/mcL (0.0-0.6); Hematocrit 44.8 % (37.5-50.1); Hemoglobin 15.2 g/dL (12.9-16.9); Immature Granulocytes % 0.4 % (0-4); Lymphocytes % 7.8 %; Mean Corpuscular HGB Conc 33.9 g/dL (31.6-35.5); Mean Corpuscular Hemoglobin 31.1 pg (28.0-33.3); Mean Corpuscular Volume 91.6 fL (83.0-100.0); Mean Platelet Volume 9.2 fL (9.4-12.4); Monocytes # 1.2 K/mcL (0.0-1.3); Monocytes % 9.9 %; Neutrophils # 9.9 K/mcL (1.6-8.9); Platelet Count 285 K/mcL (140-400); Red Blood Count 4.89 M/mcL (4.19-5.50); Red Cell Distribution Width 12.7 % (11.5-14.5); Segmented Neutrophils % 80.8 %
[2017-02-04 04:51] LABS: Alanine Aminotransferase 42 Units/L (0-55); Albumin 2.7 g/dL (3.5-5.0); Albumin/Globulin Ratio 0.8 (1.1-2.2); Alkaline Phosphatase 90 Units/L (38-126); Aspartate Amino Transferase 20 Units/L (5-34); BUN/Creatinine Ratio 33 (6-26); Bilirubin,Direct 0.5 mg/dL (0.0-0.5); Bilirubin,Indirect 0.5 mg/dL (0.0-1.2); Blood Urea Nitrogen 19 mg/dL (8-26); Calcium 9.8 mg/dL (8.6-10.8); Carbon Dioxide 36 mEq/L (19-29); Chloride 98 mEq/L (98-109); Globulin 3.3 g/dL (2.4-3.5); Glucose 130 mg/dL (70-99); Osmolality,Calculated 298 (280-300); Potassium 3.3 mEq/L (3.5-4.5); Sodium 142 mEq/L (136-145); eGFR For African Americans > 60 (> 60); eGFR For Non-African Americans > 60 (> 60)
[2017-02-04] MEDS ORDERED: Vancomycin 1,250 MG in D5% in Water 250 ML IVPB SCH (05:00)
[2017-02-04] MEDS ORDERED: *HR* Enoxaparin 30 MG/0.3 ML SYRINGE SQ SCH (06:00)
[2017-02-04] MEDS ORDERED: Cefepime HCl 2,000 MG in D5% in Water (Mini-Bag+) 100 ML IVPB SCH (06:00)
[2017-02-04] MEDS ORDERED: Cefepime HCl 2,000 MG in Water for inj. (sterile) 20 ML IVP SCH (07:00)
[2017-02-04] MEDS ORDERED: Diltiazem CD (24hr) 240 MG CAPSULE PO SCH (09:00)
[2017-02-04] MEDS ORDERED: *HR* Digoxin 0.125 MG TABLET PO SCH (09:00)
[2017-02-04] MEDS ORDERED: BuPROPion XL (24 HR) 150 MG TABLET PO SCH (09:00)
[2017-02-04] MEDS ORDERED: Nystatin Cream 15 GM TUBE TP SCH (09:00)
[2017-02-04] MEDS ORDERED: Metoprolol XL (24 HR) Succ 50 MG TAB.ER.24H PO SCH (09:00)
--- NOTE | 2017-02-04 11:32 | Event Note ---
Date of Encounter: 02/04/17 Time of Encounter: 11:25 Patient known to us - he was brought to ED after pulling out ramos at ECF and having some bleeding. I spoke with [facility] nurse who stated they sent him here as he was a DNRC-Arrest and not a comfort care. Brother, RODRIGO at bedside, discussed in detail about situation. Patient has now transitioned to a DNRCC and wants to return to [facility] and re-enroll in hospice care with [facility]. Spoke with Jessi at [facility], who checked with sales consultant residential manager, and they will take him back today. Spoke with [facility] hospice nurse, Yariel Amezcua and informed her of situation. They will contact pt brother, Scott and will coordiate time to re -enroll with hospice care. Informed hospitalist Dr. Ferrera.
[2017-02-04 11:58] VITALS: BP 146/95
--- NOTE | 2017-02-04 13:23 | Discharge Summary ---
<Arias Neal - Last Filed: 02/04/17 13:53> Date of Encounter: 02/04/17 Time of Encounter: 13:00 - Discharge Diagnosis (1) Encephalopathy Priority: Primary Status: Acute (2) COPD exacerbation Priority: Secondary Status: Resolved (3) Goals of care, counseling/discussion Priority: Secondary Status: Acute (4) Pneumonia Priority: Secondary Status: Resolved Qualifiers: Pneumonia type: due to other aerobic Gram-negative bacteria Laterality: left Lung location: lower lobe of lung Qualified Code(s): J15.6 - Pneumonia due to other Gram-negative bacteria (5) A-fib Priority: Secondary Status: Chronic Qualifiers: Atrial fibrillation type: permanent Qualified Code(s): I48.2 - Chronic atrial fibrillation - Discharge Medications Prescriptions: OxyCODONE Immed Rel [Roxicodone 15 MG] 15 mg PO Q6HR #120 tablet LORazepam [Ativan] 0.5 mg PO TID #90 tablet Scopolamine Patch [Transderm-Scop] 1.5 mg TD Q72H #10 patch.td72 Home Medications: Benzonatate [Tessalon] 100 mg PO TID PRN 05/25/15 [History] BuPROPion XL (24 HR) [Wellbutrin Xl] 300 mg PO DAILY 05/25/15 [History] Budesonide/Formoterol 160/4.5 [Symbicort 160/4.5] 2 puff IH BIDR 05/25/15 [ History] Digoxin [Lanoxin] 0.125 mg PO DAILY 05/25/15 [History] Hydrocortisone [Proctozone-Hc] 1 appl TP AD PRN 05/25/15 [History] Levothyroxine [Synthroid] 75 mcg PO DAILY 05/25/15 [History] Melatonin [Melatin] 6 mg PO HS PRN 05/25/15 [History] Metoprolol XL (24 HR) Succ [Toprol Xl] 50 mg PO DAILY 05/25/15 [History] OLANZapine [Zyprexa] 20 mg PO HS 05/25/15 [History] Polyethylene Glycol 3350 [MiraLAX] 17 gm PO HS 05/25/15 [History] Psyllium Husk [Metamucil] 660 gm PO DAILY PRN 05/25/15 [History] Rivaroxaban [Xarelto] 20 mg PO DAILY 05/25/15 [History] Guaifenesin [Mucinex] 600 mg PO Q12H 12/17/16 [History] Eucalyptus/Menthol [Cough Drops] 2 each MM Q4H PRN 01/27/17 [History] Acetaminophen [Tylenol] 650 mg PO Q6HR PRN tablet 02/02/17 [Rx] Albuterol Neb [Proventil Neb] 2.5 mg IH Q2H PRN inhsol 02/02/17 [Rx] Diltiazem CD (24hr) [Cardizem CD] 240 mg PO DAILY cap.er.24h 02/02/17 [Rx] Ipratropium/Albuterol Neb [Duoneb] 3 ml IH [id number] inhsol 02/02/17 [Rx] LORazepam Oral Conc [Ativan Oral Conc] 1 mg PO Q6HR PRN #15 mls 02/02/17 [Rx] Morphine Oral CONC [Roxanol] 1 ml PO Q4H PRN #30 ml 02/02/17 [Rx] Nystatin Cream [Mycostatin Cream] 1 appl TP BID tube 02/02/17 [Rx] predniSONE [PredniSONE] 40 mg PO DAILY tablet 02/02/17 [Rx] LORazepam [Ativan] 0.5 mg PO TID #90 tablet 02/04/17 [Rx] OxyCODONE Immed Rel [Roxicodone 15 MG] 15 mg PO Q6HR #120 tablet 02/04/17 [Rx] Scopolamine Patch [Transderm-Scop] 1.5 mg TD Q72H #10 patch.td72 02/04/17 [Rx] Allergies/Adverse Reactions: 3 Allergy/AdvReac Type Severity Reaction Status Date / Time amitriptyline Allergy Rash Verified 02/03/17 11:08 divalproex sodium AdvReac Rash Verified 02/03/17 11:08 [From Depakote] Imipramine [From Tofranil] AdvReac Rash Verified 02/03/17 11:08 lamotrigine [From Lamictal] AdvReac Rash Verified 02/03/17 11:08 [place] AdvReac Rash Verified 02/03/17 11:08 Nefazodone [From Serzone] AdvReac See Verified 02/03/17 11:08 Comments Date of admission: 02/04/17 03:18 Primary care physician: Govind Stevenson MD Consults: 02/04/17 03:25 Consult to Palliative Care [CONS] Routine Comment: Consulting Provider: [facility] Reason for Consult: assist in establishing goals, code status Call Completed: No Discharging clinician: Arias Neal Anticipated date of discharge: 02/04/17 - Patient Status Disposition: Transfer SNF Condition: Fair Overall status at discharge: patient is not back to baseline - Discharge Instructions Follow Up With: Govind Stevenson MD [Primary Care Provider] - - Diet and Activity Activity: increase activity as tolerated Diet: advance to your usual diet Hospital course: Mr. Choi is a 76-year-old male hospice patient who presented to the ED via EMS from [facility] on 02/03/17 for pulling out ramos catheter. Bleeding has been controlled prior to coming in. Per, EMS, patient had some respiratory distress and AMS. He was recently discharged from hospital and placed on hospice care at that time. On arrival to the ED, patient was in significant respiratory distress on a non-rebreather with low O2 saturation. Lungs were significantly coarse on physical examination. Patient had hypoxia on a nonrebreather mask 100% oxygen. Pulse ox was still 90%. Patient was altered on presentation. There was blood at the meatus of his penis but is not bright red. Imaging demonstrated the following: CT head: possibe mastoiditis, CT A/P: possible colitis, CT chest: multi-focal infiltrates. Patient was placed on IV Vancomycin and Cefepime. Blood cultures were drawn. On his chart , there was a DNR-CCA code status documented. This was not in accordance with the patient's wishes. This was discussed with both the patient and the power of senior trial attorney, who both agreed patient should be changed to DNR-CC. Patient was seen and examined on the date of discharge. States that he is feeling better for the most part. Ramos catheter bag observed at bedside; noted to contain a moderate amount of blood. Patient will be discharged to SNF on hospice. - Time Spent with Patient Total time spent providing and/or coordinating discharge services: Greater than 30 minutes (40 minutes) - Constitutional Vitals: Temp Pulse Resp BP Pulse Ox 98.0 F 111 17 146/95 92 02/04/17 11:56 02/04/17 11:56 02/04/17 11:56 02/04/17 11:56 02/04/17 11:56 - Head Head exam: Present: atraumatic, normocephalic - Eye Eye exam: Present: PERRL, conjuntiva pink, sclera anicteric Pupils: Present: PERRL - Neck Neck exam general surgery: Present: supple, trachea midline. Absent: lymphadenopathy - Respiratory Respiratory exam: Present: decreased breath sounds, prolonged expiratory phase. Absent: accessory muscle use, rales, rhonchi, wheezes - Cardiovascular Cardiovascular exam: Present: +S1, +S2. Absent: diastolic murmur, gallop, rubs , systolic murmur - Extremities Exam Extremities exam: Present: warm, radial pulses palpable and symmetrical. Absent : calf tenderness, cyanotic, pedal edema - Skin Skin exam: Present: dry, intact <Sebastian Umanzor - Last Filed: 02/04/17 17:13> Date of Encounter: 02/04/17 Date of admission: 02/04/17 03:18 Primary care physician: Govind Stevenson MD Consults: 02/04/17 03:25 Consult to Palliative Care [CONS] Routine Comment: Consulting Provider: Palliative [facility] [place] Reason for Consult: assist in establishing goals, code status Call Completed: No Hospital course: Mr. Choi is a 76 year old male - Time Spent with Patient Total time spent providing and/or coordinating discharge services: - Constitutional Vitals: Temp Pulse Resp BP Pulse Ox 98.0 F 111 17 146/95 92 02/04/17 11:56 02/04/17 11:56 02/04/17 11:56 02/04/17 11:56 02/04/17 11:56 - Attending Attestation Multiple infections Acute bilateral mastoiditis, multifocal pneumonia, acute colitis Transferred to the hospital due to hematuria after removing his own Ramos catheter. The patient's power of senior trial attorney prefers to pursue only comfort measures at this point, she will be a DNR CC and will be transferred back to a facility on hospice. Risks explained. Palliative care service was consulted Stop antibiotic therapy, stop Xarelto and levothyroxine I examined this patient and my medical decision-making was reviewed with the Resident Physician. I agree with the documented findings, disposition and treatment plan as described except to the extent set forth below.
--- NOTE | 2017-02-04 13:53 | Physician Discharge Referral ---
<Arias Neal - Last Filed: 02/04/17 13:53> [facility] Referral Info Provider in Charge after Transfer: Lay Brother Institutional Level of Care: Skilled - Diagnosis (1) Encephalopathy Priority: Primary Status: Acute (2) COPD exacerbation Priority: Secondary Status: Resolved (3) Goals of care, counseling/discussion Priority: Secondary Status: Acute (4) Pneumonia Priority: Secondary Status: Resolved (5) A-fib Priority: Secondary Status: Chronic - Transfer Medications Prescriptions: OxyCODONE Immed Rel [Roxicodone 15 MG] 15 mg PO Q6HR #120 tablet LORazepam [Ativan] 0.5 mg PO TID #90 tablet Scopolamine Patch [Transderm-Scop] 1.5 mg TD Q72H #10 patch.td72 Home Medications: Benzonatate [Tessalon] 100 mg PO TID PRN 05/25/15 [History] BuPROPion XL (24 HR) [Wellbutrin Xl] 300 mg PO DAILY 05/25/15 [History] Budesonide/Formoterol 160/4.5 [Symbicort 160/4.5] 2 puff IH BIDR 05/25/15 [ History] Digoxin [Lanoxin] 0.125 mg PO DAILY 05/25/15 [History] Hydrocortisone [Proctozone-Hc] 1 appl TP AD PRN 05/25/15 [History] Levothyroxine [Synthroid] 75 mcg PO DAILY 05/25/15 [History] Melatonin [Melatin] 6 mg PO HS PRN 05/25/15 [History] Metoprolol XL (24 HR) Succ [Toprol Xl] 50 mg PO DAILY 05/25/15 [History] OLANZapine [Zyprexa] 20 mg PO HS 05/25/15 [History] Polyethylene Glycol 3350 [MiraLAX] 17 gm PO HS 05/25/15 [History] Psyllium Husk [Metamucil] 660 gm PO DAILY PRN 05/25/15 [History] Rivaroxaban [Xarelto] 20 mg PO DAILY 05/25/15 [History] Guaifenesin [Mucinex] 600 mg PO Q12H 12/17/16 [History] Eucalyptus/Menthol [Cough Drops] 2 each MM Q4H PRN 01/27/17 [History] Acetaminophen [Tylenol] 650 mg PO Q6HR PRN tablet 02/02/17 [Rx] Albuterol Neb [Proventil Neb] 2.5 mg IH Q2H PRN inhsol 02/02/17 [Rx] Diltiazem CD (24hr) [Cardizem CD] 240 mg PO DAILY cap.er.24h 02/02/17 [Rx] Ipratropium/Albuterol Neb [Duoneb] 3 ml IH [id number] inhsol 02/02/17 [Rx] LORazepam Oral Conc [Ativan Oral Conc] 1 mg PO Q6HR PRN #15 mls 02/02/17 [Rx] Morphine Oral CONC [Roxanol] 1 ml PO Q4H PRN #30 ml 02/02/17 [Rx] Nystatin Cream [Mycostatin Cream] 1 appl TP BID tube 02/02/17 [Rx] predniSONE [PredniSONE] 40 mg PO DAILY tablet 02/02/17 [Rx] LORazepam [Ativan] 0.5 mg PO TID #90 tablet 02/04/17 [Rx] OxyCODONE Immed Rel [Roxicodone 15 MG] 15 mg PO Q6HR #120 tablet 02/04/17 [Rx] Scopolamine Patch [Transderm-Scop] 1.5 mg TD Q72H #10 patch.td72 02/04/17 [Rx] Allergies/Adverse Reactions: 3 Allergy/AdvReac Type Severity Reaction Status Date / Time amitriptyline Allergy Rash Verified 02/03/17 11:08 divalproex sodium AdvReac Rash Verified 02/03/17 11:08 [From Depakote] Imipramine [From Tofranil] AdvReac Rash Verified 02/03/17 11:08 lamotrigine [From Lamictal] AdvReac Rash Verified 02/03/17 11:08 [place] AdvReac Rash Verified 02/03/17 11:08 Nefazodone [From Serzone] AdvReac See Verified 02/03/17 11:08 Comments - Respiratory Orders Smoking Cessation: Smoking cessation has been advised. For more information, call the [place] Tobacco Quit Line at 3-523-LWCZ-NOW. CERTIFICATION: I certify that the transfer of the above named patient to an Extended Care Facility is necessary for the continuing treatment of the diagnosis listed. The above information is true and accurate reflection of patient's current condition. Confidential - Redisclosure prohibited without a patient's written consent. <Sebastian Umanzor - Last Filed: 02/04/17 17:14> - Respiratory Orders Smoking Cessation: Smoking cessation has been advised. For more information, call the [place] Tobacco Quit Line at 4-488-DMBW-NOW. CERTIFICATION: I certify that the transfer of the above named patient to an Extended Care Facility is necessary for the continuing treatment of the diagnosis listed. The above information is true and accurate reflection of patient's current condition. Confidential - Redisclosure prohibited without a patient's written consent. Stop Xarelto and levothyroxine
[2017-02-04] MEDS ORDERED: Aminoglycoside Consult 1 EACH MC ONE (16:14)
--- NOTE | 2017-02-06 09:55 | Electrocardiograph Report ---
[facility] [employer] Test Date: 2017-02-03 Pat Name: Rodney Choi Department: [id number] Room: 2A23 Gender: M Promotional Marketing Analyst: BRENT : 1940 Requested By: Ranjeet Odom Order Number: [id number] Reading MD: John Ramirez MD Measurements Intervals [place] Rate: 87 P: [place]: 0 QRS: 7 QRSD: 112 T: 60 QT: 370 QTc: 415 Interpretive Statements ATRIAL FIBRILLATION MODERATE INTRAVENTRICULAR CONDUCTION DELAY [110+ ms QRS DURATION] NONSPECIFIC ST & T-WAVE ABNORMALITY ABNORMAL RHYTHM ECG Electronically Signed On 02-06-2017 9:29:34 EST by John Ramirez MD
== END 2017-02-04 16:15 | DRG 177 ==
LOC: EMEROO 10:58 → 2ANU 10:58
PROVIDERS: ADMIT Internal Medicine; ATTEND Internal Medicine